=== PATIENT | male | born 1950 | race African-American/Black ===

== ENCOUNTER 2024-04-04 09:22 | Inpatient (IN) | payer MEDICARE, MEDICAID ==
[~2024-04-04] VITALS: Ht 162.6 cm; Wt 66.8 kg
--- NOTE | 2024-04-04 10:38 | ED.PDOC ---
GI ASSESSMENT HPI Comments 73 Y M with PMHX of HLD, GERD, and PE presents to the ED with CC of abdominal pain. Patient states, that he has been experiencing abdominal pain x1 week, with associated symptoms of nausea, vomiting, and chills. Patient relays, that he has been unable to eat due to persistent vomiting. Patient comments, that pain 1 week ago was a 10/10 as of today pain is a 9/10. Patient smokes tobacco, smokes marijuana occasionally, and denies illicit drug use. Patient is experiencing slight SOB with exertion and denies any chest pain, diarreha, fever, or dysuria. Chief Complaint: Abdominal Pain Time Seen by MD: 10:10 Primary Care Provider: ? Reviewed Notes: Nurses Notes, Medications, Allergies Allergies: Coded Allergies: NO KNOWN ALLERGIES (Unverified , 04/04/24) Information Source: Patient Mode of Arrival: Ambulatory Duration: Since onset Prehospital treatment: None Quality: Cramping Vomitus: Watery Stool: Normal Severity: Mild Recent: None Recent Hx of: None Pain Location: RLQ Modifying Factors: Nothing Associated sign and symptoms: Nausea, Vomiting Past Medical History PAST MEDICAL HISTORY: GERD, High Lipids, PE Surgical History: Denies all surgeries Family History Family History: Unknown Social History Smoker: Cigarettes Alcohol: Denies ETOH Use Drugs: Marijuana Lives In: Home Constitutional: reports: chills; denies: diaphoresis, fatigue, fever, malaise, sweats, weakness, others EENTM: denies: blurred vision, double vision, ear bleeding, ear discharge, ear drainage, ear pain, ear ringing, eye pain, eye redness, hearing loss, mouth pain, mouth swelling, nasal discharge, nose bleeding, nose congestion, nose pain, photophobia, tearing, throat pain, throat swelling, voice changes, others Respiratory: reports: SOB with excertion; denies: cough, hemoptysis, orthopnea, SOB at rest, shortness of breath, stridor, wheezing, others Cardiovascular: denies: chest pain, dizzy spells, diaphoresis, Dyspnea on exertion, edema, irregular heart beat, left arm pain, lightheadedness, palpitations, PND, syncope, others Gastrointestinal: reports: nausea, vomiting; denies: abdomen distended, abdominal pain, blood streaked bowels, constipated, diarrhea, dysphagia, difficulty swallowing, hematemesis, melena, poor appetite, poor fluid intake, rectal bleeding, rectal pain, others Genitourinary: denies: burning, dysuria, flank pain, frequency, hematuria, incontinence, penile discharge, penile sore, pain, testicle pain, testicle swelling, urgency, others Neurological: denies: dizziness, fainting, headache, left sided numbness, left sided weakness, numbness, paresthesia, pre-existing deficit, right sided numbness, right sided weakness, seizure, speech problems, tingling, tremors, weakness, others Musculoskeletal: denies: back pain, gout, joint pain, joint swelling, muscle pain, muscle stiffness, neck pain, others Integumetry: denies: bruises, change in color, change in hair/nails, dryness, laceration, lesions, lumps, rash, wounds, others Allergic/Immunocompromised: denies: Difficulty Healing, Frequent Infections, Hi ves, Itching, others Hematologic/Lymphatic: denies: anemia, blood clots, easy bleeding, easy bruising, swollen glands, others Endocrine: denies: excessive hunger, excessive sweating, excessive thirst, excessive urination, flushing, intolerance to cold, intolerance to heat, unexplained weight gain, unexplained weight loss, others Psychiatric: denies: anxiety, bipolar disorder, depression, hopeless, panic disorder, schizophrenia, sleepless, suicidal, others All Other Systems: Reviewed and Negative Physical Exam General Appearance: Moderate Distress HEENT: Normal ENT Inspection, Pharynx Normal, TMs Normal Neck: Full Range of Motion, Non-Tender, Normal, Normal Inspection Respiratory: Chest Non-Tender, Lungs Clear, No Accessory Muscle Use, No Respiratory Distress, Normal Breath Sounds Cardiovascular: No Edema, No JVD, No Murmur, No Gallop, Normal Peripheral Pulses, Regular Rate/Rhythm Breast Exam: Deferred Gastrointestinal: No Organomegaly, No Pulsatile Mass, Normal Bowel Sounds, RLQ, RUQ, Soft Genitalia: Deferred Pelvic: Deferred Rectal: Deferred Extremities: No calf tenderness, Normal capillary refill, Normal inspection, Normal range of motion, Non-tender, No pedal edema Musculoskeletal : Apperance: Normal Neurologic: Alert, cake froster II-XII nml as Tested, No Motor Deficits, Normal Affect, Normal Mood, No Sensory Deficits Cerebellar Function: Normal Reflexes: Normal Skin: Dry, Normal Color, Warm Lymphatic: No Adenopathy Was a procedure done? Was a procedure done?: No GI differential Dx Differential Diagnosis: Cholangitis, Cholecystitis, Gastritis/PUD, Gastroenteritis, Electrolyte Imbalance, Food Poisoning, Bacterial, Viral X-Ray, Labs, Meds, VS Vital Signs Date Time Temp Pulse Resp B/P (MAP) Pulse Ox O2 Delivery O2 Flow Rate FiO2 04/04/24 14:00 95 16 108/72 (84) 100 04/04/24 13:27 93 15 100 Room Air* 0 21 04/04/24 13:00 94 16 116/82 (93) 100 04/04/24 12:02 97.5 80 16 159/85 (109) 97 97.5 04/04/24 12:00 Room Air* 0 21 04/04/24 09:41 123 04/04/24 09:33 98.1 109 18 125/52 (76) 96 Lab Test 04/04/24 10:15 Range/Units White Blood Count 25.9 H 4.4-10.8 10^3/uL Red Blood Count 3.79 L 4.5-5.90 10^6/uL Hemoglobin 10.8 L 13.5-17.5 g/dL Hematocrit 32.7 L 41.0-53.0 % Mean Corpuscular Volume 86.3 80.0-100.0 fL Mean Corpuscular Hemoglobin 28.5 28.0-32.0 pg Mean Corpuscular Hemoglobin Concent 33.1 32.0-36.0 g/dL Red Cell Distribution Width 15.5 H 11.8-14.3 % Platelet Count 157 140-450 10^3/uL Mean Platelet Volume 11.5 H 6.9-10.8 fL Neutrophils (%) (Auto) 37.0-80.0 % Lymphocytes (%) (Auto) 10.0-50.0 % Monocytes (%) (Auto) 0.0-12.0 % Basophils (%) (Auto) 0.0-2.0 % Neutrophils # (Auto) 1.6-8.6 10 ^3/uL Lymphocytes # (Auto) 0.4-5.4 10 ^3/uL Monocytes # (Auto) 0-1.3 10 ^3/uL Differential Total Cells Counted 100.0 100 Neutrophils % (Manual) 91 H 37.0-80.0 Band Neutrophils % (Manual) 1 Lymphocytes % (Manual) 4 L 10.0-50.0 Monocytes % (Manual) 4 0-12 Eosinophils % (Manual) 0 0-7 Basophils % (Manual) 0 0.0-2.0 Metamyelocytes % (manual) 0 Myelocytes % (Manual) 0 Promyelocytes % (Manual) 0 Blast Cells % (Manual) 0 Reactive Lymphocytes 0 Platelet Estimate Adequate Anisocytosis (manual) Slight Sodium Level 136 136-145 mmol/L Potassium Level 4.2 3.5-5.1 mmol/L Chloride Level 103 98-107 mmol/L Carbon Dioxide Level 23 20-31 mmol/L Anion Gap 10 5-15 Blood Urea Nitrogen 17 9-23 mg/dL Creatinine 1.06 0.700-1.30 mg/dL Glomerular Filtration Rate Calc 75 >90 mL/min BUN/Creatinine Ratio 16.0 10.0-20.0 Serum Glucose 134 H 74-106 mg/dL Calcium Level 10.0 8.7-10.4 mg/dL Total Bilirubin 1.1 H 0.2-1.0 mg/dL Aspartate Amino Transferase (AST) 55 H 13-40 U/L Alanine Aminotransferase (ALT) 50 H 7-40 U/L Alkaline Phosphatase 221 H 46-116 U/L Total Protein 8.2 5.7-8.2 g/dL Albumin 4.6 3.2-4.8 g/dL Lipase 32 12-53 U/L GALLBLADDER US: FINDINGS: The liver measures 15.8 cm. There is an approximately 4.6 x 3.7 cm heterogene ous complex appearing mass in the right hepatic lobe near the gallbladder fossa. There is no intrahepatic biliary ductal dilatation. There is echogenic debris / sludge in the gallbladder. The gallbladder wall appears thickened and edematous. There is no significant pericholecystic fluid. Cooler Supervisor reports a negative Silva's sign. The common duct is not adequately seen. The right kidney measures 10 cm length. No sonographic evidence of nephrolithiasis or hydronephrosis. Visualized portions of the pancreas appears within normal limits. IMPRESSION: 1. Nonspecific 4.6 x 3.7 cm heterogeneous complex appearing mass in the right hepatic lobe near the gallbladder fossa. Further evaluation with CT abdomen and pelvis with contrast is recommended. 2. There is echogenic debris / sludge in the gallbladder. The gallbladder wall appears thickened and edematous. There is no significant pericholecystic fluid. Clinical correlation is recommended. HS:Y ATED BY: ALOK MAYER MD DICTATED DATE/TIME: 04/04/24 1126 SIGNED BY: ALOK MAYER MD SIGNED DATE/TIME: 04/04/24 1126 CC: The liver enzymes are elevated. The bilirubin is 1.1 The CBC shows an elevated white blood cell count of 25.9 We did review the findings on the ultrasound and there is a concern that the patient has a acute cholecystitis We also recommend a CT scan of the abdomen and pelvis At this time, the patient was being admitted. Images Reviewed?: Images reviewed and evaluated by me Time of 1ST Reevaluation: 10:40 Reevaluation 1ST: Unchanged Patient Education/Counseling: Diagnosis, Treatment, Prognosis Family Education/Counseling: No Family Present Departure 1 Departure Time of Disposition: 14:54 Impression: Primary Impression: Intractable abdominal pain Additional Impressions: Gallbladder sludge Leukocytosis Qualified Codes: D72.829 - Elevated white blood cell count, unspecified Disposition: ADMITTED INPATIENT Admit to: Med Surg Condition: Fair Critical Care Note Critical Care Time?: No Stability Stability form required: Yes Unstable for transfer: ED Physician Assesment (Clinical assesment) Heart Score Heart Score: Heart Score Response (Comments) Value History N/A 0 EKG N/A 0 Age N/A 0 Risk Factors N/A 0 Troponin N/A 0 Total 0 I personally scribed for RIMMA COOMBS MD ([email or web address]) on 04/04/24 at 10:38. Electronically submitted by Anastasia Mayorga ([email or web address]). I personally scribed for RIMMA COOMBS MD ([email or web address]) on 04/04/24 at 11:57. Electronically submitted by Anastasia Mayorga ([email or web address]). RIMMA COOMBS MD Apr 04, 2024 10:38
[2024-04-04 10:43] LABS: Hematocrit 32.7 % (41.0-53.0); Hemoglobin 10.8 g/dL (13.5-17.5); Mean Corpuscular Hemoglobin 28.5 pg (28.0-32.0); Mean Corpuscular Hgb Conc. 33.1 g/dL (32.0-36.0); Mean Corpuscular Volume 86.3 fL (80.0-100.0); Platelet Count (auto) 157 10^3/uL (140-450); Red Blood Cells 3.79 10^6/uL (4.5-5.90); Red Cell Distribution Width 15.5 % (11.8-14.3); White Blood Cell 25.9 10^3/uL (4.4-10.8)
[2024-04-04 10:44] LABS: Basophils % (manual) 0 (0.0-2.0); Blast Cells 0; Eosinophils % (manual) 0 (0-7); Metamyelocytes % 0; Myelocytes % 0; Promyelocytes % 0; Reactive Lymphocytes 0
[2024-04-04 11:04] LABS: Albumin 4.6 g/dL (3.2-4.8); Anion Gap 10 (5-15); Bilirubin, Total 1.1 mg/dL (0.2-1.0); Blood Urea Nitrogen 17 mg/dL (9-23); Carbon Dioxide 23 mmol/L (20-31); Chloride 103 mmol/L (98-107); Lipase 32 U/L (12-53); Potassium 4.2 mmol/L (3.5-5.1); Total Protein 8.2 g/dL (5.7-8.2)
[2024-04-04 11:25] LABS: Anisocytosis Slight; Band Neutrophils % (manual) 1; Lymphocytes % (manual) 4 (10.0-50.0); Monocytes % (manual) 4 (0-12); Platelet Estimate Adequate
[2024-04-04 11:29] LABS: Alanine Aminotransferase 50 U/L (7-40); Alkaline Phosphatase 221 U/L (46-116); Aspartate Aminotransferase 55 U/L (13-40); Glucose 134 mg/dL (74-106); Sodium 136 mmol/L (136-145)
--- NOTE | 2024-04-04 11:29 | DVH ---
ULTRASOUND ABDOMEN LIMITED INDICATION: pain TECHNIQUE: Multiple real-time sonographic images of the abdomen were obtained. COMPARISON: None FINDINGS: The liver measures 15.8 cm. There is an approximately 4.6 x 3.7 cm heterogeneous complex appearing mass in the right hepatic lobe near the gallbladder fossa. There is no intrahepatic biliary ductal di latation. There is echogenic debris / sludge in the gallbladder. The gallbladder wall appears thickened and ed ematous. There is no significant pericholecystic fluid. Desulfurizer Hand reports a negative Silva's sign. The common duct is not adequately seen. The right kidney measures 10 cm length. No sonographic evidence of nephrolithiasis or hydronephrosi s. Visualized portions of the pancreas appears within normal limits. IMPRESSION: 1. Nonspecific 4.6 x 3.7 cm heterogeneous complex appearing mass in the right hepatic lobe near the g allbladder fossa. Further evaluation with CT abdomen and pelvis with contrast is recommended. 2. There is echogenic debris / sludge in the gallbladder. The gallbladder wall appears thickened and edematous. There is no significant pericholecystic fluid. Clinical correlation is recommended. HS:Y
[2024-04-04 13:27] VITALS: PULSE 93; RESP 15; O2SAT 100
--- NOTE | 2024-04-04 15:09 | DVHHP2 ---
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 He currently does not have any paperwork to speak about that but when asking questions he is not sure what he was diagnosed with but he states that for this last week he has not been able to keep anything down and he has had decreased oral intake and he has been vomiting all week he states he has been vomiting so much that he decided come to the ER for evaluation. He does admit to a 20 lb weight loss in the last month. Patient states he does have right-sided abdominal pain he also had some chills with no fever. He denies any diarrhea no chest pain no shortness with the breath. Did ask patient if he had any family history of cancer he says his brother had of he believes stomach cancer. He also states he did smoke in the past he was smoking greater than 50 years but he stopped the few days ago. When evaluating patient's labs and imaging from ED white count was found to be 25.9 hemoglobin was 10.8 32.7 glucose was 134 total bili is 1.1 AST was 55 ALT is 50 alkaline phosphatase 221. Patient had an ultrasound of his gallbladder completed shows gallbladder wall thickening which is consistent with the infection and also there was a complex mass in his right hepatic lobe of the liver. When speaking with the patient he states he was never diagnosed with any kind of liver mass. He has not been diagnosed with any kind of cancer. With these findings we will admit and ask for GI consult along with General surgery. He will likely need a biopsy if the CT scan picks up a liver mass which was recommended by the ultrasound. For now we will start on antibiotics and do cancer work. And pain management. Since patient might potentially need a biopsy we will hold Eliquis for now and place on heparin therapy Past Medical History Hyperlipidemia GERDs PE/dvt questionable in the the liver, aortic stent aneurysm Past Surgical History 6 mo aortic stent aneurysm unknown time Family History Reviewed, non-contributory to the management of this case. Past Social History Patient has stopped smoking one week ago he smoked for 50 years half a pack daily he also smokes marijuana no drug use or alcohol use Review of Systems Constitutional: No: Fever, Chills, Sweats, Weakness, Malaise, Other Eyes: No: Pain, Vision change, Conjunctivae inflammation, Eyelid inflammation, Other, Redness ENT: No: Ear pain, Ear discharge, Nose pain, Nose discharge, Nose congestion, Mouth pain, Mouth swelling, Throat pain, Throat swelling, Other Respiratory: No: Cough, Dry, Shortness of breath, SOB with excertion, Wheezing, Hemoptysis, Pleuritic Pain, Sputum, Wheezing, Other Cardiovascular: No: Chest Pain, Palpitations, Orthopnea, Paroxysmal Noc. Dyspnea, Edema, Lt Headedness, Other Gastrointestinal: Nausea, Vomiting, Abdominal Pain; No: Diarrhea, Constipation, Melena, Hematochezia, Other Genitourinary: No Dysuria, No Frequency, No Incontinence, No Hematuria, No Retention, No Other Musculoskeletal: No: other, neck pain, shoulder pain, arm pain, back pain, hand pain, leg pain, foot pain Skin: No: Rash, Lesions, Jaundice, Bruising, Other Neurological: No: Weakness, Numbness, Incoordination, Change in speech, Confusion, Seizures, Other Allergies: Coded Allergies: NO KNOWN ALLERGIES (Unverified , 04/04/24) Exam Vital Signs Vital Signs Date Time Temp Pulse Resp B/P (MAP) Pulse Ox O2 Delivery O2 Flow Rate FiO2 04/04/24 14:00 95 16 108/72 (84) 100 04/04/24 13:27 Room Air* 0 21 04/04/24 12:02 97.5 97.5 General Appearance: Alert, Oriented X3, Cooperative, No acute distress HEENT: Atraumatic, PERRLA, EOMI, Mucous membr. moist/pink Respiratory: Clear to auscultation, Normal air movement Cardiovascular: Regular rate, Normal S1, Normal S2, No murmurs Abdominal: Normal bowel sounds, Soft, Other (+guarding and rebound tenderness ) Extremities: No clubbing, No cyanosis, No edema, Normal pulses, No tenderness/swelling Skin: No rashes, No breakdown, No significant lesion Neuro: Normal gait, Normal speech, Strength at 5/5 X4 ext, Normal tone, Sensation intact, Cranial nerves 3-12 NL Psych/Mental Status: Mental status NL, Mood NL Labs/Xrays CT scan abdomen pelvis complex mass in the right hepatic lobe near the gallbladder, gallbladder with wall inflammation I reviewed labs, imaging CT scan abdomen pelvis, EKG and all diagnostic studies on this patient from ED records and the medical chart Labs Test 04/04/24 10:15 Range/Units White Blood Count 25.9 H 4.4-10.8 10^3/uL Red Blood Count 3.79 L 4.5-5.90 10^6/uL Hemoglobin 10.8 L 13.5-17.5 g/dL Hematocrit 32.7 L 41.0-53.0 % Mean Corpuscular Volume 86.3 80.0-100.0 fL Mean Corpuscular Hemoglobin 28.5 28.0-32.0 pg Mean Corpuscular Hemoglobin Concent 33.1 32.0-36.0 g/dL Red Cell Distribution Width 15.5 H 11.8-14.3 % Platelet Count 157 140-450 10^3/uL Mean Platelet Volume 11.5 H 6.9-10.8 fL Neutrophils (%) (Auto) 37.0-80.0 % Lymphocytes (%) (Auto) 10.0-50.0 % Monocytes (%) (Auto) 0.0-12.0 % Basophils (%) (Auto) 0.0-2.0 % Neutrophils # (Auto) 1.6-8.6 10 ^3/uL Lymphocytes # (Auto) 0.4-5.4 10 ^3/uL Monocytes # (Auto) 0-1.3 10 ^3/uL Differential Total Cells Counted 100.0 100 Neutrophils % (Manual) 91 H 37.0-80.0 Band Neutrophils % (Manual) 1 Lymphocytes % (Manual) 4 L 10.0-50.0 Monocytes % (Manual) 4 0-12 Eosinophils % (Manual) 0 0-7 Basophils % (Manual) 0 0.0-2.0 Metamyelocytes % (manual) 0 Myelocytes % (Manual) 0 Promyelocytes % (Manual) 0 Blast Cells % (Manual) 0 Reactive Lymphocytes 0 Platelet Estimate Adequate Anisocytosis (manual) Slight Sodium Level 136 136-145 mmol/L Potassium Level 4.2 3.5-5.1 mmol/L Chloride Level 103 98-107 mmol/L Carbon Dioxide Level 23 20-31 mmol/L Anion Gap 10 5-15 Blood Urea Nitrogen 17 9-23 mg/dL Creatinine 1.06 0.700-1.30 mg/dL Glomerular Filtration Rate Calc 75 >90 mL/min BUN/Creatinine Ratio 16.0 10.0-20.0 Serum Glucose 134 H 74-106 mg/dL Calcium Level 10.0 8.7-10.4 mg/dL Total Bilirubin 1.1 H 0.2-1.0 mg/dL Aspartate Amino Transferase (AST) 55 H 13-40 U/L Alanine Aminotransferase (ALT) 50 H 7-40 U/L Alkaline Phosphatase 221 H 46-116 U/L Total Protein 8.2 5.7-8.2 g/dL Albumin 4.6 3.2-4.8 g/dL Lipase 32 12-53 U/L Assessment/Plan Assessment/Plan acute cholecystitis found on us ordered general surgery consult fu recs ordered zosyn for now ordered morphine prn pain ordered npo for now ordered ivf for now acute 4.6 x 3.7 cm heterogeneous complex appearing mass in the right hepatic lobe near the gallbladder fossa found on us ordered ct scan abd pelvis with iv contrast fu results ordered gi consult fu recs will likely need biopsy of mass will need to consult IR to be done by rounding team (will place on heparin for now) hold eliquis ordered cea and AFP follow up results acute leukocytosis like from gallbladder infection ordered zosyn for now acute dyspnea without hypoxia pt with ? history of pe vs liver clot will order cta to rule out pe will hold eliquis for now will place on heparin therapy pending biopsy of liver mass (biopsy to be determined by rounding team) acute liver DVT vs Pe pt unsure of history was dx at [facility] ordered results from [facility] pt was admitted 03/15-/03/19/2024 will need to hold eliquis for now ordered heparin for now acute transaminitis likely for liver mass found on us ordered gi consult fu recs avoid liver toxic drugs acute anemia monitor for downtrend acute weight loss in 2wks 20 lbs can consider nutrition consult enc oral intake tobacco dependence enc continue abstinence offered nicotine patch pt declines chronic problems hld gerds PE fen/ppx protonix scd heparin ivf for now npo for now plan admit to medicine Plan discussed with: Patient, Other ( paul [phone]) Date of Service: Apr 04, 2024 Billing Provider: ZENAIDA DUFF DNP Common Visit Codes: 79405-[id number] INP/OBS CARE (HIGH) ZENAIDA DUFF DNP Apr 04, 2024 15:09
[2024-04-04 15:35] LABS: Urine Bacteria None Seen /hpf (None Seen)
[2024-04-04 15:59] LABS: Urine Blood 1+ /uL (Negative); Urine Clarity Clear (Clear); Urine Color Dark-Yellow (Yellow); Urine Mucus FEW (None Seen); Urine Protein, UAD 2+ (Negative); Urine Specific Gravity 1.035 (1.001-1.035); Urine Squamous Epithelial Cell FEW /hpf (<5); Urine Urobilinogen 12 mg/dL (Negative); Urine WBC 3 /hpf (0 - 3)
[2024-04-04] MEDS ORDERED: ALBUTEROL SULF 2.5 MG/0.5ML(0.5%) NEB SOLN NEB PRN (16:00)
[2024-04-04] MEDS ORDERED: NITROGLYCERIN 0.4 MG SL TAB SL PRN (16:00)
[2024-04-04] MEDS ORDERED: IPRATROPIUM BROM 0.5 MG/2.5ML INH SOL NEB PRN (16:00)
[2024-04-04] MEDS: IOHEXOL 350 MG/ML 100ML IJ ONE (16:22)
--- NOTE | 2024-04-04 16:46 | DVH ---
CHEST RADIOGRAPH Indication: eval for sob Technique: Single frontal view of the chest was obtained Comparison: None FINDINGS: Lines and Tubes: None Lungs: No focal consolidation. Pleura: No effusion. No pneumothorax. Cardiomediastinal contours: Unremarkable Bones: No acute osseous abnormality. IMPRESSION: 1. No acute cardiopulmonary disease.
[2024-04-04 16:47] LABS: Base Excess -0.3 mmol/L (-2.0-3.0)
[2024-04-04 17:17] LABS: Basophils # (auto) 0 10 ^3/uL (0-0.2); Basophils % (auto) 0.1 % (0.0-2.0); Eosinophils # (auto) 0 10 ^3/uL (0-0.8); Hematocrit 29.3 % (41.0-53.0); Hemoglobin 9.6 g/dL (13.5-17.5); Lymphocytes # (auto) 1.4 10 ^3/uL (0.4-5.4); Lymphocytes % (auto) 7.7 % (10.0-50.0); Mean Corpuscular Hemoglobin 28.5 pg (28.0-32.0); Mean Corpuscular Hgb Conc. 32.9 g/dL (32.0-36.0); Mean Corpuscular Volume 86.5 fL (80.0-100.0); Monocytes # (auto) 1.2 10 ^3/uL (0-1.3); Monocytes % (auto) 6.7 % (0.0-12.0); Neutrophils # (auto) 15.2 10 ^3/uL (1.6-8.6); Neutrophils % (auto) 85.5 % (37.0-80.0); Platelet Count (auto) 124 10^3/uL (140-450); Red Blood Cells 3.39 10^6/uL (4.5-5.90); Red Cell Distribution Width 15.7 % (11.8-14.3); White Blood Cell 17.8 10^3/uL (4.4-10.8)
[2024-04-04] MEDS: PIPERACILLIN-TAZOB 3.375GM 100 ML IV ONE (17:18)
--- NOTE | 2024-04-04 17:18 | DVH ---
INDICATION: eval for pe COMPARISON: None TECHNIQUE: Multidetector CTA of the chest was performed of the chest with 100 cc of intravenous contr ast. PULMONARY ANGIOGRAPHY PROTOCOL was utilized using a bolus-tracking technique centered on the john paul n pulmonary artery. Axial, coronal and sagittal multiplanar and MIP reformats were performed. Radiation Dose : 1. Chest: CTDI volume is 11.84 mGy. Dose-length product is 703.58 mGy*cm The dose indicators for CT are the volume Computed Tomography (CT) Dose Index (CTDIvol) and the Dose Length Product (DLP), and are measured in units of mGy and mGy-cm, respectively. These indicators are not patient dose, but values generated from the CT scanner acquisition factors. The report includes radiation exposure data for exposures received during this examination. Findings: Thyroid gland is unremarkable. No pulmonary embolism. No aortic aneurysm or dissection.. The pulmonary trunk is normal in size. Heart size is within normal limits. No significant mediastinal lymphadenopathy. No pneumothorax, pleural effusion or focal airspace consolidation. 5 mm right lower lobe solid nodule . 7 mm right upper lobe solid nodule abutting the fissure. Pneumothorax, pleural effusion or focal a irspace consolidation. Mild gastric wall thickening. 4.3 x 3.5 cm hepatic lesion which does not measure as simple fluid. Oth erwise, partial view of the upper abdomen is unremarkable. The soft tissues unremarkable. No destructive osseous lesions are noted. IMPRESSION: There is no pulmonary embolism. There is no aortic aneurysm or dissection. There is no evidence of acute intrathoracic abnormalities. 5 mm right lower lobe solid nodule with 7 mm right upper lobe solid nodule abutting the fissure. Wayne mmend follow-up per fleischner criteria. Wall thickening of the stomach. Correlate for gastritis. Incompletely imaged 4.3 x 3.5 cm hypodense hepatic lesion adjacent to the gallbladder fossa which adorno s not measure simple fluid. Hepatic protocol CT / MRI should be considered for further evaluation.
[2024-04-04] MEDS: HEPARIN SODIUM (PORCINE) 5000 UNITS/ML 1ML VIAL IV ONE (17:22)
[2024-04-04] MEDS: PANTOPRAZOLE 40 MG/10 ML VIAL INJ IV ONE (17:22)
[2024-04-04] MEDS: MORPHINE SULFATE INJ 2 MG/ml SYRG IV PRN (17:23)
[2024-04-04] MEDS: SODIUM CHLORIDE 0.9% 1,000 ML IV SCH (17:23)
[2024-04-04] MEDS: ONDANSETRON HCL 4 MG/2 ML VIAL IV PRN (17:23)
[2024-04-04 17:31] LABS: INR 1.24 (0.9-1.15); Prothrombin Time 12.9 sec (9.3-11.8)
--- NOTE | 2024-04-04 17:35 | DVH ---
Exam: CT CT CHEST/AB/PL W CON- IV ONLY History: eval for acute liver mass Comparison Study: None available at time of dictation. Contrast: Type of contrast: Omnipaque 350 Contrast injected: 100 mL Contrast wasted: 0 TECHNIQUE: A digital lambskin trimmer image was obtained. During the uneventful, intravenous administration of c ontrast material, multislice data acquisition was obtained through the abdomen and pelvis. The data s et was subsequently reconstructed into axial images. Images were reviewed on a work station using a c ombination of axial and multiplanar using a variety of window levels and settings. Radiation Dose Information: CT Dose: CTDI volume is 25.6 mGy. Dose-length product is 703.58 mGy*cm FINDINGS: Lung Bases: Nodules in the right lung field 1 measuring 6.6 cm in the right middle lobe (series 6 carlitos ge 26). 2nd nodule right lower lobe measuring 6.7 mm (series 6; image 30 ) Liver: There is a multi-septated hypodense mass adjacent the gallbladder measuring 5 x 4.6 by 3.7 cm. Tissue density 24 Hounsfield units. May represent an abscess. Liver appears heterogeneous with findi ngs of steatosis. Gallbladder and Biliary Tree: No calcified gallstones in the gallbladder. Spleen: Unremarkable Pancreas: The pancreas is normal in appearance without focal lesions or abnormal enhancement. Adrenal Glands: Unremarkable Kidneys: Kidneys demonstrate normal symmetric enhancement without focal lesions, calculi or hydroneph rosis. Bladder: Unremarkable Bowel: The stomach is grossly normal in appearance. Small bowel and colon are normal in caliber and d istribution. The appendix is not visualized; however, no secondary findings of acute appendicitis id entified. Ascites: Absent Lymphadenopathy: No mesenteric, retroperitoneal or periportal lymphadenopathy. Abdominal Wall and Mesentery: Unremarkable. Vasculature: Aorta bi-iliac stent in place. Beginning just below the level of the renal arteries and extending into the right and left iliac arteries. Distal abdominal aorta measures 6.2 cm and there a re no findings to suggest endoleak. Pelvic Organs: Unremarkable Musculoskeletal: No aggressive focal bony lesions, acute fractures or dislocation. Soft tissues: Unremarkable. IMPRESSION: 1. Multi-septated mass adjacent to the gallbladder measuring 5 by 4.6 x 3.7 cm. Tissue density 24 Ho unsfield units. Most likely an abscess. Can not entirely exclude neoplasm although unlikely since it is solitary and septated. 2. No cholelithiasis. 3. 2 small 6 mm noncalcified pulmonary nodules on the right recommend follow-up according to Fleischn er criteria. 4. Aorta bi iliac stent in the abdominal aorta beginning just below the renal arteries and extending into the proximal iliac vessels bilaterally. 5. All CT scans at this medical facility are performed using dose modulation techniques as appropriate t o a performed exam including the following: Automated exposure control was utilized; adjustment of th e MA and/or KV according to patient size; and use of iterative reconstruction technique.
[2024-04-04 17:55] LABS: COVID19 ANTIGEN SOFIA FIA POSITIVE (NEGATIVE)
[2024-04-04] MEDS: HEPARIN DRIP/D5W 100UNITS/ML 250 ML IV SCH (18:04)
--- NOTE | 2024-04-04 19:11 | ECG ---
[facility] Test Date: 2024-04-04 Test Time: 09:41:07 Pat Name: GRECIA LOPEZ Department: ER Room: 0203T Gender: M Chicken Handler: JODEE : 1950 Requested By: ANN-MARIE MIXON Order Number: [id number] Reading MD: Garth Donohue Measurements Intervals [place] Rate: 123 P: 92 [place]: 122 QRS: 101 QRSD: 91 T: 6 QT: 346 QTc: 495 Interpretive Statements Sinus tachycardia Ventricular premature complex Aberrant conduction of SV complex(es) Right axis deviation Borderline prolonged QT interval Electronically Signed On 04-05-2024 13:11:24 PST by Garth Donohue Please click the below link to view image of tracing.
[2024-04-04 20:00] VITALS: PULSE 84
[2024-04-04 21:36] VITALS: PULSE 91; RESP 17; O2SAT 100
[2024-04-04 22:45] VITALS: O2SAT 100
[2024-04-04 23:45] VITALS: BP 141/85; PULSE 51; RESP 20; O2SAT 91
[2024-04-05] VITALS (11 sets, daily range): BP systolic 95–117; BP diastolic 58–71; PULSE 79–110; RESP 16–20; TEMP 97.8–98.7; O2SAT 91–100
[2024-04-05] MEDS ORDERED: APIX5TAB PO (00:17)
[2024-04-05] MEDS ORDERED: ASPI-325 PO (00:17)
[2024-04-05] MEDS ORDERED: FAMO40TA7 PO (00:17)
[2024-04-05] MEDS ORDERED: ATOR40TA52 PO (00:17)
[2024-04-05 00:35] LABS: INR 1.18 (0.9-1.15); Prothrombin Time 12.4 sec (9.3-11.8)
[2024-04-05] MEDS: PIPERACILLIN-TAZOB 3.375GM 100 ML IV SCH (00:37)
[2024-04-05 00:40] LABS: Partial Thromboplastin Time 96.8 SEC (24.5-34.5)
[2024-04-05] MEDS: HEPARIN DRIP/D5W 100UNITS/ML 250 ML IV SCH (02:08)
[2024-04-05 08:14] LABS: Basophils # (auto) 0 10 ^3/uL (0-0.2); Basophils % (auto) 0.3 % (0.0-2.0); Eosinophils # (auto) 0 10 ^3/uL (0-0.8); Hematocrit 27.4 % (41.0-53.0); Hemoglobin 9.1 g/dL (13.5-17.5); Lymphocytes # (auto) 1.3 10 ^3/uL (0.4-5.4); Lymphocytes % (auto) 10.9 % (10.0-50.0); Mean Corpuscular Hemoglobin 28.6 pg (28.0-32.0); Mean Corpuscular Hgb Conc. 33.3 g/dL (32.0-36.0); Mean Corpuscular Volume 85.9 fL (80.0-100.0); Monocytes # (auto) 1.2 10 ^3/uL (0-1.3); Neutrophils # (auto) 9.7 10 ^3/uL (1.6-8.6); Neutrophils % (auto) 78.8 % (37.0-80.0); Platelet Count (auto) 107 10^3/uL (140-450); Red Cell Distribution Width 15.8 % (11.8-14.3); White Blood Cell 12.3 10^3/uL (4.4-10.8)
[2024-04-05 08:15] LABS: INR 1.19 (0.9-1.15); Partial Thromboplastin Time 57.5 SEC (24.5-34.5); Prothrombin Time 12.5 sec (9.3-11.8)
[2024-04-05 08:33] LABS: Alanine Aminotransferase 49 U/L (7-40); Albumin 3.8 g/dL (3.2-4.8); Alkaline Phosphatase 156 U/L (46-116); Anion Gap 7 (5-15); Aspartate Aminotransferase 63 U/L (13-40); BUN/Creatinine Ratio 12.2 (10.0-20.0); Bilirubin, Total 0.9 mg/dL (0.2-1.0); Blood Urea Nitrogen 12 mg/dL (9-23); Calcium 9.3 mg/dL (8.7-10.4); Carbon Dioxide 24 mmol/L (20-31); Chloride 105 mmol/L (98-107); Glucose 108 mg/dL (74-106); Potassium 3.5 mmol/L (3.5-5.1); Sodium 136 mmol/L (136-145)
[2024-04-05] MEDS: PANTOPRAZOLE 40 MG/10 ML VIAL INJ IV SCH (09:54)
[2024-04-05 14:11] LABS: INR 1.12 (0.9-1.15); Partial Thromboplastin Time 53.8 SEC (24.5-34.5); Prothrombin Time 11.8 sec (9.3-11.8)
--- NOTE | 2024-04-05 15:12 | DVHPNRES ---
Progress Note Date Seen: Apr 05, 2024 Resident Creating Document: EDUARDO BROWN RESIDENT Medical Necessity Reason Pt with a Central, PICC or Fol: No Subjective Review of Systems pt seen and examined at bedside mentioning of no active complaints Objective vital signs Vital Sign Date Time Temp Pulse Resp B/P (MAP) Pulse Ox O2 Delivery O2 Flow Rate FiO2 04/05/24 12:13 98.2 79 20 102/58 (73) 97 98.2 04/05/24 09:30 Nasal Cannula 2.0 04/05/24 09:30 28 Total Intake and Output 04/04/24 04/04/24 04/05/24 15:00 23:00 07:00 Intake Total 220 ml 636 ml Balance 220 ml 636 ml medications Current Medications Medications Dose Ordered Sig/Naomi Route Start Time Stop Time Status Last Admin Dose Admin Albuterol 2.5 mg Q4HPRN PRN NEB 04/04/24 16:00 Ipratropium [place] 0.5 mg Q4HPRN PRN NEB 04/04/24 16:00 Pantoprazole Sodium 40 mg DAILY IV 04/05/24 10:00 04/05/24 09:54 40 MG Sodium Chloride 1,000 ml @ 120 mls/hr Q8H20M IV 04/04/24 16:00 04/05/24 09:54 120 MLS/HR Docusate Sodium 100 mg BIDPRN PRN PO 04/04/24 16:00 Piperacillin Sod/ Tazobactam Sod 100 ml @ 25 mls/hr Q8HR IV 04/04/24 22:00 04/05/24 14:30 25 MLS/HR Heparin Sodium/ Dextrose 250 ml @ 9 mls/hr Q24H IV 04/05/24 02:00 04/05/24 02:08 9 MLS/HR Examination Physical exam Gen: alert and oriented X4, no distress Resp: bilateral a/e + CVS: normal s1/s2, no murmurs GI: soft Neuro : normal speech and tone laboratory and microbiology Laboratory Tests 04/05/24 07:20 Test 04/05/24 07:20 Range/Units Serum Glucose 108 H 74-106 mg/dL Microbiology Date/Time Source Procedure Growth Status 04/05/24 00:00 Nose MRSA Screen - Final Complete Labs and/or images reviewed: Labs reviewed by me, Image(s) reviewed by me Problem List/Assessment/Plan Problem List/Assessment/Plan Assessment/plan #Sepsis due to liver abscess -IV fluids -IV antibiotics -blood culture #Acute hypoxic resp failure due to covid pneumonia -resolving , on room air #COVID pneumonia -on 02 #GERD -IV Protonix #?portal vein thrombosis -was on eliquis - IV heparin #Normocytic anemia -CBC monitor #Multi-septated mass adjacent to the gallbladder measuring 5 by 4.6 x 3.7 cm likely liver abscess -IV antibiotics -surgery consult and GI consult #Thrombocytopenia likely due to sepsis -CBC monitor #2 small 6 mm noncalcified pulmonary nodules on the right -follow up with repeat CT #Aorta bi iliac stent in the abdominal aorta beginning just below the renal arteries and extending into the proximal iliac vessels bilaterally -seen on CT #Acute Resp alkalosis with partial comp met acidosis -likely due to early sepsis #DVT prophylaxis -on heparin drip Code status, full code Case discussion with Dr Bose Plan discussed with: Patient, Other My Orders My Orders Orders - EDUARDO BROWN Procedure Category Date Status Time Npo Except Ice Chips ORDERS 04/05/24 Transmitted 14:48 Date of Service: Apr 05, 2024 Billing Provider: PARAMJIT BOSE MD Common Visit Codes: [id number] INP/OBS CARE(HIGH) EDUARDO BROWN Apr 05, 2024 15:12 PARAMJIT BOSE MD Apr 09, 2024 16:25
[2024-04-05] MEDS ORDERED: DEXTROSE (50%) 50ML SYRG IV PRN (17:15)
--- NOTE | 2024-04-05 17:36 | DVHINCON2 ---
Date of service: Apr 05, [address] DUFF Reason for Consultation LIVER MASS POSSIBLE ABSCESS History of Present Illness This 73-year-old male presented to the emergency room with complaints of abdominal pain which was very severe in the epigastrium and right upper quadr ant. Patient was apparently in [facility] in March 15, 2024 before Malcolm apparently abdominal pain and has found to have some possible blood clot in the liver at [facility] and the patient is a poor historian has difficult to get much detailed history from at this time. Patient has been on put on Eliquis for possible blood clot in the liver is still waiting for some we will need to get some report from [facility] for this. Patient has got history of aneurysm surgery for aortic aneurysm with stent placement about six months ago. The present symptoms started about a week ago with complaints of severe abdomina l pain with nausea vomiting and decreased oral intake. Patient has lost about 20 lb weight loss in the last one month. Patient is also suspected to be having possible COVID Patient had a ultrasound done which showed a gallbladder from liver mass close to the gallbladder a CT scan also showed a liver mass. Possibility patient has got high fever possibility of an abscess or other pathology also can not be excluded the reason for GI consult is for possible liver pass possible abscess liver abscess. Past Medical History Hyperlipidemia GERD possible PE in the live with possible DVT in the liver distended aneurysm unable to get more detailed history from the patient and and awaiting for reports from [facility]. Past Surgical History Surgery for aortic aneurysm Family History: FH: cancer G8 BROTHER FH: renal failure G8 MOTHER Family History Unremarkable Social History Smokes marijuana denied any drug GERD alcohol abuse Allergies: Coded Allergies: NO KNOWN ALLERGIES (Unverified , 04/04/24) Home Meds Reported Medications Famotidine (Famotidine) 40 Mg Tab, 1 TAB PO DAILY 04/05/24 Aspirin (Aspirin Low Dose) 81 Mg Tab, 1 TAB PO DAILY 04/05/24 Atorvastatin Calcium (ATORVASTATIN CALCIUM) 40 Mg Tab, 1 TAB PO DAILY 04/05/24 Apixaban Base (ELIQUIS) 5 Mg Tab, 1 TAB PO BID 04/05/24 Current Medications Current Medications Medications (Trade) Dose Ordered Sig/Naomi Route PRN Reason Start Time Stop Time Status Last Admin Pantoprazole Sodium (Protonix) 40 mg DAILY IV 04/05/24 10:00 04/05/24 09:54 Piperacillin Sod/ Tazobactam Sod 100 ml @ 25 mls/hr Q8HR IV 04/04/24 22:00 04/05/24 14:30 Heparin Sodium/ Dextrose 250 ml @ 9 mls/hr Q24H IV 04/05/24 02:00 04/05/24 02:08 Sodium Chloride 1,000 ml @ 75 mls/hr [id number] IV 04/05/24 15:15 Review of Systems Noncontributory Vital Signs Vital Signs Date Time Temp Pulse Resp B/P (MAP) Pulse Ox O2 Delivery O2 Flow Rate FiO2 04/05/24 12:13 98.2 79 20 102/58 (73) 97 98.2 04/05/24 09:30 Nasal Cannula 2.0 04/05/24 09:30 28 Physical Exam Originally built and nourished male in no acute distress but has fever vital signs stable except for the fever HEENT examination no pallor no icterus Neck is supple no lymphadenopathy Lungs scattered rales Cardiovascular unremarkable Abdomen soft there is no definite masses felt tenderness in the epigastrium right upper quadrant mild rebound and guarding no rigidity Bowel sounds normal Extremities no edema Grossly intact neurological Labs/Diagnostic Data Labs Test 04/05/24 13:30 04/05/24 07:20 04/04/24 16:50 04/04/24 16:40 Range/Units Prothrombin Time 11.8 9.3-11.8 sec Prothrombin Time INR 1.12 0.9-1.15 Activated Partial Thromboplast Time 53.8 H 24.5-34.5 SEC White Blood Count 12.3 #H 4.4-10.8 10^3/uL Red Blood Count 3.20 L 4.5-5.90 10^6/uL Hemoglobin 9.1 L 13.5-17.5 g/dL Hematocrit 27.4 L 41.0-53.0 % Mean Corpuscular Volume 85.9 80.0-100.0 fL Mean Corpuscular Hemoglobin 28.6 28.0-32.0 pg Mean Corpuscular Hemoglobin Concent 33.3 32.0-36.0 g/dL Red Cell Distribution Width 15.8 H 11.8-14.3 % Platelet Count 107 L 140-450 10^3/uL Mean Platelet Volume 11.3 H 6.9-10.8 fL Neutrophils (%) (Auto) 78.8 37.0-80.0 % Lymphocytes (%) (Auto) 10.9 10.0-50.0 % Monocytes (%) (Auto) 10.0 0.0-12.0 % Eosinophils (%) (Auto) 0.0 0.0-7.0 % Basophils (%) (Auto) 0.3 0.0-2.0 % Neutrophils # (Auto) 9.7 H 1.6-8.6 10 ^3/uL Lymphocytes # (Auto) 1.3 0.4-5.4 10 ^3/uL Monocytes # (Auto) 1.2 0-1.3 10 ^3/uL Eosinophils # (Auto) 0 0-0.8 10 ^3/uL Basophils # (Auto) 0 0-0.2 10 ^3/uL Nucleated Red Blood Cells 0.0 % Sodium Level 136 136-145 mmol/L Potassium Level 3.5 3.5-5.1 mmol/L Chloride Level 105 98-107 mmol/L Carbon Dioxide Level 24 20-31 mmol/L Anion Gap 7 5-15 Blood Urea Nitrogen 12 9-23 mg/dL Creatinine 0.98 0.700-1.30 mg/dL Glomerular Filtration Rate Calc 82 >90 mL/min BUN/Creatinine Ratio 12.2 10.0-20.0 Serum Glucose 108 H 74-106 mg/dL Calcium Level 9.3 8.7-10.4 mg/dL Total Bilirubin 0.9 0.2-1.0 mg/dL Aspartate Amino Transferase (AST) 63 H 13-40 U/L Alanine Aminotransferase (ALT) 49 H 7-40 U/L Alkaline Phosphatase 156 H 46-116 U/L Total Protein 7.0 5.7-8.2 g/dL Albumin 3.8 3.2-4.8 g/dL Carcinoembryonic Antigen 1.58 <=5.0 ng/mL Blood Gas Specimen Type Arterial Blood Gas Sample Site Left radial Blood Gas Patient Temperature 37.0 Arterial Blood Date Drawn [id number] Arterial Blood pH 7.487 H 7.350-7.450 Arterial Blood Partial Pressure CO2 30.5 L 35.0-48.0 mmHg Arterial Blood Partial Pressure O2 73.7 L 83.0-108.0 mmHg Arterial Blood HCO3 22.6 21.0-28.0 mmol/L Arterial Blood Oxygen Saturation 94.7 94.0-98.0 % Arterial Blood Base Excess -0.3 -2.0-3.0 mmol/L Arterial Blood Oxyhemoglobin 93.9 L 94.0-98.0 % Arterial Blood Carboxyhemoglobin 0.2 L 0.5-1.5 % Arterial Blood Methemoglobin 0.6 0.0-1.5 % Odc Test Yes Blood Gas Total Hemoglobin 10.10 L 13.5-17.5 g/dL Blood Gas Modality Room air FiO2 % 21.0 Test 04/04/24 16:37 04/04/24 15:20 04/04/24 10:15 Range/Units SARS-CoV-2 Antigen (Rapid) Positive *A NEGATIVE Urine Color Dark-yellow Yellow Urine Clarity Clear Clear Urine pH 6.0 5.0-9.0 Urine Specific [place] 1.035 1.001-1.035 Urine Protein 2+ H Negative Urine Ketones Trace Negative Urine Blood 1+ H Negative /uL Urine Nitrite Negative Negative Urine Bilirubin 1+ Negative Urine Urobilinogen 12 H Negative mg/dL Urine Leukocyte Esterase Negative Negative /uL Urine RBC 6 0 - 3 /hpf Urine WBC 3 0 - 3 /hpf Urine Squamous Epithelial Cells Few <5 /hpf Urine Bacteria None seen None Seen /hpf Urine Mucus Few None Seen Urine Glucose Normal Normal mg/dL Differential Total Cells Counted 100.0 100 Neutrophils % (Manual) 91 H 37.0-80.0 Band Neutrophils % (Manual) 1 Lymphocytes % (Manual) 4 L 10.0-50.0 Monocytes % (Manual) 4 0-12 Eosinophils % (Manual) 0 0-7 Basophils % (Manual) 0 0.0-2.0 Metamyelocytes % (manual) 0 Myelocytes % (Manual) 0 Promyelocytes % (Manual) 0 Blast Cells % (Manual) 0 Reactive Lymphocytes 0 Platelet Estimate Adequate Anisocytosis (manual) Slight Lipase 32 12-53 U/L Microbiology Date/Time Source Procedure Growth Status 04/05/24 00:00 Nose MRSA Screen - Final Complete 04/04/24 16:57 Blood Blood Culture - Preliminary NO GROWTH AFTER 24 HOURS OF INCUBATION. Resulted Assessment 73-year-old male with complaints of severe abdominal pain history of hyperlipidemia history of GERD found to have possible liver blood clot or so at [facility] not unable to get much detailed history came with severe abdominal pain ultrasound and CT scan showing a liver mass patient also has got got COVID. His alk phos is 221 ALT is 50 AST is 55. Clinical impression Possible liver abscess were patient has got COVID whether discovered related or other pathology in the biliary tract disease can not be excluded With weight loss in the liver mass malignancy also can not be excluded Plan/Recommendation We will recommend IV antibiotics Have infectious disease consult We will recommend an MRI MRCP of the liver Follow liver enzymes closely May need further workup including surgical drainage or radiological drainage if an abscess May need to be sent to a tertiary liver center also if necessary depending upon the clinical response Thank you Dr. Harrell Plan discussed with: Patient JESSICA HARRELL MD Apr 05, 2024 17:36
[2024-04-05] MEDS: InsuLIN REG 1unit/0.01ml Soln (100units/ml) SC SCH (18:00)
[2024-04-05] MEDS: ACCU-CHEK COMFORT CURVE STRIP VI SCH (18:25)
[2024-04-05] MEDS: SODIUM CHLORIDE 0.9% 1,000 ML IV SCH (19:02)
[2024-04-05 20:44] LABS: INR 1.15 (0.9-1.15); Partial Thromboplastin Time 55.8 SEC (24.5-34.5); Prothrombin Time 12.1 sec (9.3-11.8)
[2024-04-06] VITALS (9 sets, daily range): BP systolic 99–126; BP diastolic 68–80; PULSE 66–103; RESP 16–18; TEMP 98.4–102.1; O2SAT 96–99
[2024-04-06] MEDS: HYDROcodone-ACET 5/325MG TAB PO PRN (01:33)
[2024-04-06 06:46] LABS: Hematocrit 28.3 % (41.0-53.0); Hemoglobin 9.7 g/dL (13.5-17.5); Mean Corpuscular Hemoglobin 29.3 pg (28.0-32.0); Mean Corpuscular Hgb Conc. 34.2 g/dL (32.0-36.0); Mean Corpuscular Volume 85.6 fL (80.0-100.0); Platelet Count (auto) 105 10^3/uL (140-450); Red Blood Cells 3.31 10^6/uL (4.5-5.90); Red Cell Distribution Width 15.7 % (11.8-14.3)
[2024-04-06 07:01] LABS: Albumin 3.8 g/dL (3.2-4.8); Anion Gap 8 (5-15); BUN/Creatinine Ratio 13.1 (10.0-20.0); Blood Urea Nitrogen 11 mg/dL (9-23); Calcium 9.1 mg/dL (8.7-10.4); Carbon Dioxide 24 mmol/L (20-31); Chloride 105 mmol/L (98-107); Glucose 87 mg/dL (74-106); Magnesium 2.2 mg/dL (1.6-2.6); Sodium 137 mmol/L (136-145)
[2024-04-06 07:02] LABS: Bilirubin, Total 0.9 mg/dL (0.2-1.0); Phosphorus 3.1 mg/dL (2.4-5.1)
[2024-04-06 07:12] LABS: Alanine Aminotransferase 120 U/L (7-40); Alkaline Phosphatase 161 U/L (46-116); Aspartate Aminotransferase 189 U/L (13-40); Potassium 3.2 mmol/L (3.5-5.1)
[2024-04-06 07:33] LABS: Basophils % (manual) 0 (0.0-2.0); Blast Cells 0; Eosinophils % (manual) 0 (0-7); Metamyelocytes % 0; Myelocytes % 0; Promyelocytes % 0; Reactive Lymphocytes 0
[2024-04-06 09:40] LABS: Band Neutrophils % (manual) 3; Lymphocytes % (manual) 12 (10.0-50.0); Monocytes % (manual) 15 (0-12)
[2024-04-06 09:41] LABS: Anisocytosis Slight; Large Platelets FEW; Tear Drop Cells FEW
[2024-04-06 09:42] LABS: Platelet Estimate Decrea
[2024-04-06] MEDS: POTASSIUM CHL 20MEQ/100ML 100 ML IV ONE (10:29)
[2024-04-06 11:06] LABS: AFP Serum Tumor Marker <1.8 ng/mL (0.0-8.4)
[2024-04-06 12:06] LABS: Cancer Antigen (CA) 125 19.6 U/mL (Not Estab.)
--- NOTE | 2024-04-06 14:08 | DVHPNRES ---
Progress Note Date Seen: Apr 06, 2024 Resident Creating Document: ROB GUZMAN RESIDENT Medical Necessity Reason Pt with a Central, PICC or Fol: No Subjective Review of Systems pt seen and examined at bedside mentioning of no active complaints. Reports significant improvement in his symptoms. Objective vital signs Vital Sign Date Time Temp Pulse Resp B/P (MAP) Pulse Ox O2 Delivery O2 Flow Rate FiO2 04/06/24 13:22 99.1 101 18 105/72 (83) 99 99.1 04/06/24 08:23 Nasal Cannula* 2 28 Total Intake and Output 04/05/24 04/05/24 04/06/24 15:00 23:00 07:00 Intake Total 100 ml 0 ml 450 ml Balance 100 ml 0 ml 450 ml medications Current Medications Medications Dose Ordered Sig/Naomi Route Start Time Stop Time Status Last Admin Dose Admin Albuterol 2.5 mg Q4HPRN PRN NEB 04/04/24 16:00 Cancel Ipratropium [place] 0.5 mg Q4HPRN PRN NEB 04/04/24 16:00 Cancel Pantoprazole Sodium 40 mg DAILY IV 04/05/24 10:00 04/06/24 09:25 40 MG Docusate Sodium 100 mg BIDPRN PRN PO 04/04/24 16:00 Piperacillin Sod/ Tazobactam Sod 100 ml @ 25 mls/hr Q8HR IV 04/04/24 22:00 04/06/24 05:22 25 MLS/HR Heparin Sodium/ Dextrose 250 ml @ 9 mls/hr Q24H IV 04/05/24 02:00 04/05/24 21:27 9 MLS/HR Sodium Chloride 1,000 ml @ 75 mls/hr [id number] IV 04/05/24 15:15 04/06/24 05:22 75 MLS/HR Diagnostic Test (Pha) 1 strip Q6HR 04/05/24 18:00 04/06/24 11:40 1 STRIP Insulin Human Regular Q6HR SC 04/05/24 18:00 Dextrose 50 ml UD PRN IV 04/05/24 17:15 Acetaminophen/ Hydrocodone Bitart 1 tab Q6HPRN PRN PO 04/06/24 01:00 04/06/24 11:33 1 TAB Examination Gen: alert and oriented X4, no distress Resp: bilateral a/e + CVS: normal s1/s2, no murmurs GI: soft Neuro : normal speech and tone laboratory and microbiology Laboratory Tests 04/06/24 05:54 Test 04/06/24 05:54 Range/Units Serum Glucose 87 74-106 mg/dL Microbiology Date/Time Source Procedure Growth Status 04/05/24 00:00 Nose MRSA Screen - Final Complete 04/04/24 16:57 Blood Blood Culture - Preliminary Resulted Labs and/or images reviewed: Labs reviewed by me, Image(s) reviewed by me Problem List/Assessment/Plan Problem List/Assessment/Plan #Sepsis due to liver abscess -IV fluids -IV antibiotics -blood culture - ordered MRI abdomen with and without contrast #Acute hypoxic resp failure due to covid pneumonia -resolving , on room air #COVID pneumonia -on 02 # hypokalemia - repleted #GERD -IV Protonix #?portal vein thrombosis -was on eliquis - IV heparin #Normocytic anemia -CBC monitor #Multi-septated mass adjacent to the gallbladder measuring 5 by 4.6 x 3.7 cm likely liver abscess -IV antibiotics -surgery consult and GI consult #Thrombocytopenia likely due to sepsis -CBC monitor #2 small 6 mm noncalcified pulmonary nodules on the right -follow up with repeat CT #Aorta bi iliac stent in the abdominal aorta beginning just below the renal arteries and extending into the proximal iliac vessels bilaterally -seen on CT #Acute Resp alkalosis with partial comp met acidosis -likely due to early sepsis #DVT prophylaxis -on heparin drip Code status, full code Case discussion with Dr Bose Plan discussed with: Patient, Other (RN) Date of Service: Apr 06, 2024 Billing Provider: PARAMJIT BOSE MD Common Visit Codes: [id number] INP/OBS CARE(HIGH) ROB GUZMAN RESIDENT Apr 06, 2024 14:08 PARAMJIT BOSE MD Apr 09, 2024 16:25
[2024-04-06 16:07] LABS: COVID19 ANTIGEN SOFIA FIA POSITIVE (NEGATIVE)
--- NOTE | 2024-04-06 17:56 | DVHINCON2 ---
Date of service: Apr 06, 2024 Family History: FH: cancer G8 BROTHER FH: renal failure G8 MOTHER Allergies: Coded Allergies: NO KNOWN ALLERGIES (Unverified , 04/04/24) Home Meds Reported Medications Famotidine (Famotidine) 40 Mg Tab, 1 TAB PO DAILY 04/05/24 Aspirin (Aspirin Low Dose) 81 Mg Tab, 1 TAB PO DAILY 04/05/24 Atorvastatin Calcium (ATORVASTATIN CALCIUM) 40 Mg Tab, 1 TAB PO DAILY 04/05/24 Apixaban Base (ELIQUIS) 5 Mg Tab, 1 TAB PO BID 04/05/24 Current Medications Current Medications Medications (Trade) Dose Ordered Sig/Naomi Route PRN Reason Start Time Stop Time Status Last Admin Diagnostic Test (Pha) (Accu-Chek Comfort Curve T) 1 strip Q6HR 04/05/24 18:00 04/06/24 17:30 Insulin Human Regular (InsuLIN R) Q6HR SC 04/05/24 18:00 Acetaminophen/ Hydrocodone Bitart (Andreas 5/325MG Tab) 1 tab Q6HPRN PRN PO MILD PAIN (1-3 PAIN SCALE) 04/06/24 01:00 04/06/24 11:33 Vital Signs Vital Signs Date Time Temp Pulse Resp B/P (MAP) Pulse Ox O2 Delivery O2 Flow Rate FiO2 04/06/24 17:03 99.0 103 18 110/78 (89) 99 99.0 04/06/24 10:23 Nasal Cannula* 2 28 Labs/Diagnostic Data Labs Test 04/06/24 17:24 04/06/24 15:45 04/06/24 05:54 04/05/24 19:39 Range/Units POC Glucose 95 70-106 mg/dl SARS-CoV-2 Antigen (Rapid) Positive *A NEGATIVE White Blood Count 9.0 # 4.4-10.8 10^3/uL Red Blood Count 3.31 L 4.5-5.90 10^6/uL Hemoglobin 9.7 L 13.5-17.5 g/dL Hematocrit 28.3 L 41.0-53.0 % Mean Corpuscular Volume 85.6 80.0-100.0 fL Mean Corpuscular Hemoglobin 29.3 28.0-32.0 pg Mean Corpuscular Hemoglobin Concent 34.2 32.0-36.0 g/dL Red Cell Distribution Width 15.7 H 11.8-14.3 % Platelet Count 105 L 140-450 10^3/uL Mean Platelet Volume 11.5 H 6.9-10.8 fL Neutrophils (%) (Auto) 37.0-80.0 % Lymphocytes (%) (Auto) 10.0-50.0 % Monocytes (%) (Auto) 0.0-12.0 % Basophils (%) (Auto) 0.0-2.0 % Neutrophils # (Auto) 1.6-8.6 10 ^3/uL Lymphocytes # (Auto) 0.4-5.4 10 ^3/uL Monocytes # (Auto) 0-1.3 10 ^3/uL Differential Total Cells Counted 100.0 100 Neutrophils % (Manual) 70 37.0-80.0 Band Neutrophils % (Manual) 3 Lymphocytes % (Manual) 12 10.0-50.0 Monocytes % (Manual) 15 H 0-12 Eosinophils % (Manual) 0 0-7 Basophils % (Manual) 0 0.0-2.0 Metamyelocytes % (manual) 0 Myelocytes % (Manual) 0 Promyelocytes % (Manual) 0 Blast Cells % (Manual) 0 Reactive Lymphocytes 0 Platelet Estimate Decrea Large Platelets Few Anisocytosis (manual) Slight Tear Drop Cells Few Activated Partial Thromboplast Time 62.4 H 24.5-34.5 SEC Sodium Level 137 136-145 mmol/L Potassium Level 3.2 L 3.5-5.1 mmol/L Chloride Level 105 98-107 mmol/L Carbon Dioxide Level 24 20-31 mmol/L Anion Gap 8 5-15 Blood Urea Nitrogen 11 9-23 mg/dL Creatinine 0.84 0.700-1.30 mg/dL Glomerular Filtration Rate Calc 93 >90 mL/min BUN/Creatinine Ratio 13.1 10.0-20.0 Serum Glucose 87 74-106 mg/dL Calcium Level 9.1 8.7-10.4 mg/dL Phosphorus Level 3.1 2.4-5.1 mg/dL Magnesium Level 2.2 1.6-2.6 mg/dL Total Bilirubin 0.9 0.2-1.0 mg/dL Aspartate Amino Transferase (AST) 189 H 13-40 U/L Alanine Aminotransferase (ALT) 120 H 7-40 U/L Alkaline Phosphatase 161 H 46-116 U/L Total Protein 7.0 5.7-8.2 g/dL Albumin 3.8 3.2-4.8 g/dL Prothrombin Time 12.1 H 9.3-11.8 sec Prothrombin Time INR 1.15 0.9-1.15 Test 04/05/24 07:20 04/04/24 16:50 04/04/24 16:40 04/04/24 15:20 Range/Units Eosinophils (%) (Auto) 0.0 0.0-7.0 % Eosinophils # (Auto) 0 0-0.8 10 ^3/uL Basophils # (Auto) 0 0-0.2 10 ^3/uL Nucleated Red Blood Cells 0.0 % Tumor Marker Alpha Fetoprotein <1.8 0.0-8.4 ng/mL Carcinoembryonic Antigen 1.58 <=5.0 ng/mL CA 125 Antigen 19.6 Not Estab. U/mL Blood Gas Specimen Type Arterial Blood Gas Sample Site Left radial Blood Gas Patient Temperature 37.0 Arterial Blood Date Drawn [id number] Arterial Blood pH 7.487 H 7.350-7.450 Arterial Blood Partial Pressure CO2 30.5 L 35.0-48.0 mmHg Arterial Blood Partial Pressure O2 73.7 L 83.0-108.0 mmHg Arterial Blood HCO3 22.6 21.0-28.0 mmol/L Arterial Blood Oxygen Saturation 94.7 94.0-98.0 % Arterial Blood Base Excess -0.3 -2.0-3.0 mmol/L Arterial Blood Oxyhemoglobin 93.9 L 94.0-98.0 % Arterial Blood Carboxyhemoglobin 0.2 L 0.5-1.5 % Arterial Blood Methemoglobin 0.6 0.0-1.5 % Doc Test Yes Blood Gas Total Hemoglobin 10.10 L 13.5-17.5 g/dL Blood Gas Modality Room air FiO2 % 21.0 Urine Color Dark-yellow Yellow Urine Clarity Clear Clear Urine pH 6.0 5.0-9.0 Urine Specific [place] 1.035 1.001-1.035 Urine Protein 2+ H Negative Urine Ketones Trace Negative Urine Blood 1+ H Negative /uL Urine Nitrite Negative Negative Urine Bilirubin 1+ Negative Urine Urobilinogen 12 H Negative mg/dL Urine Leukocyte Esterase Negative Negative /uL Urine RBC 6 0 - 3 /hpf Urine WBC 3 0 - 3 /hpf Urine Squamous Epithelial Cells Few <5 /hpf Urine Bacteria None seen None Seen /hpf Urine Mucus Few None Seen Urine Glucose Normal Normal mg/dL Test 04/04/24 10:15 Range/Units Lipase 32 12-53 U/L Microbiology Date/Time Source Procedure Growth Status 04/05/24 00:00 Nose MRSA Screen - Final Complete 04/04/24 16:57 Blood Blood Culture - Preliminary Resulted Assessment 557211 R/O AC CHOLECYSTITIS CT NEG FOR GALLSTONES POSITIVE FOR COVID INFECTION HIGH RISK FOR SURGERY LIVER MASS/ABSCESS MRCP R/O CBD STONE OBSTRUCTION IF INDICATED ERCP IF SURGERY CONSIDERED BASED ON ONGOING EVAL TRANSFER TO HIGHER LEVEL OF CARE Plan discussed with: Other EULA BRUNER MD Apr 06, 2024 17:56
--- NOTE | 2024-04-06 18:26 | DVHINCON2 ---
DATE OF CONSULTATION: 04/06/2024 HISTORY OF PRESENT ILLNESS: This 73-year-old years old, comes to the Emergency Room with complaints of abdominal pain, severe in the epigastrium and right upper quadrant. He was in [facility] before [place], and found to have some possible blood clot in the lower extremities. The patient is a poor historian, and he was put on Eliquis for possible blood clot in the liver, so waiting for some report from [place]. The patient has got history of aneurysm surgery for aortic aneurysm with stent placement about 6 months ago, and currently he has been diagnosed with COVID as well, and I was asked to see him in regards to a gallbladder issue. Ultrasound done showed a gallbladder from the liver mass. There is a collection of a liver mass close to the gallbladder, and abscess cannot be ruled out. Reason for the abscess is not clear. The CT scan is necessary for evidence of cholelithiasis. PAST MEDICAL HISTORY: Hyperlipidemia, GERD, possible PE, possible DVT, and aortic aneurysm surgery. PHYSICAL EXAMINATION: VITAL SIGNS: On examination, afebrile, stable signs. HEENT: With no evidence of pallor, cyanosis, or jaundice. NECK: Supple, nontender with no thyromegaly, lymphadenopathy. CHEST AND LUNGS: Clear. HEART: Within normal limits. ABDOMEN: Soft. NEUROLOGIC: Not assessed. CLINICAL IMPRESSION: Rule out acute cholecystitis, rule out a liver mass and liver abscess; etiology is not clear. He is very high risk for surgery based upon the history of aneurysm surgery done recently, and also the gallbladder being negative for gallstones on CT scan. The liver enzymes are elevated. He is going to be MRCP'ed; and if MRCP cannot be done, then he probably will need to be considered for transfer to higher level of care in case surgery is considered for the liver mass. MD YAS Wang/ALTAGRACIA TID: [id number] RECEIPT: [id number] cc: ZENAIDA DUFF
[2024-04-07] VITALS (10 sets, daily range): BP systolic 95–124; BP diastolic 59–71; PULSE 69–99; RESP 17–19; TEMP 98–100.4; O2SAT 98–100
[2024-04-07 06:55] LABS: Anion Gap 7 (5-15); Carbon Dioxide 25 mmol/L (20-31); Chloride 104 mmol/L (98-107); Sodium 136 mmol/L (136-145)
[2024-04-07 06:57] LABS: Basophils # (auto) 0 10 ^3/uL (0-0.2); Basophils % (auto) 0.3 % (0.0-2.0); Eosinophils # (auto) 0 10 ^3/uL (0-0.8); Eosinophils % (auto) 0.2 % (0.0-7.0); Hematocrit 28.4 % (41.0-53.0); Hemoglobin 9.3 g/dL (13.5-17.5); Lymphocytes # (auto) 1.1 10 ^3/uL (0.4-5.4); Mean Corpuscular Hemoglobin 28.4 pg (28.0-32.0); Mean Corpuscular Hgb Conc. 32.7 g/dL (32.0-36.0); Mean Corpuscular Volume 86.7 fL (80.0-100.0); Monocytes # (auto) 1.1 10 ^3/uL (0-1.3); Monocytes % (auto) 11.3 % (0.0-12.0); Neutrophils # (auto) 7.6 10 ^3/uL (1.6-8.6); Neutrophils % (auto) 77.2 % (37.0-80.0); Platelet Count (auto) 105 10^3/uL (140-450); Red Blood Cells 3.28 10^6/uL (4.5-5.90); Red Cell Distribution Width 15.9 % (11.8-14.3); White Blood Cell 9.8 10^3/uL (4.4-10.8)
[2024-04-07 07:01] LABS: BUN/Creatinine Ratio 9.9 (10.0-20.0); Glucose 86 mg/dL (74-106)
[2024-04-07 07:04] LABS: Blood Urea Nitrogen 8 mg/dL (9-23); Potassium 3.3 mmol/L (3.5-5.1)
[2024-04-07 07:44] LABS: INR 1.15 (0.9-1.15); Partial Thromboplastin Time 58.8 SEC (24.5-34.5); Prothrombin Time 12.3 sec (9.3-11.8)
[2024-04-07] MEDS: POTASSIUM CHL 20MEQ/100ML 100 ML IV ONE (09:22)
--- NOTE | 2024-04-07 09:53 | DVHPN2 ---
Progress Note Date Seen: Apr 07, 2024 Medical Necessity Reason Pt with a Central, PICC or Fol: No Objective vital signs Vital Sign Date Time Temp Pulse Resp B/P (MAP) Pulse Ox O2 Delivery O2 Flow Rate FiO2 04/07/24 09:03 98.8 77 17 117/68 (84) 100 98.8 04/07/24 08:01 Nasal Cannula* 2 28 Total Intake and Output 04/06/24 04/06/24 04/07/24 15:00 23:00 07:00 Intake Total 475.5 ml 746 ml 100 ml Balance 475.5 ml 746 ml 100 ml medications Current Medications Medications Dose Ordered Sig/Naomi Route Start Time Stop Time Status Last Admin Dose Admin Albuterol 2.5 mg Q4HPRN PRN NEB 04/04/24 16:00 Cancel Ipratropium [place] 0.5 mg Q4HPRN PRN NEB 04/04/24 16:00 Cancel Pantoprazole Sodium 40 mg DAILY IV 04/05/24 10:00 04/07/24 09:18 40 MG Docusate Sodium 100 mg BIDPRN PRN PO 04/04/24 16:00 Piperacillin Sod/ Tazobactam Sod 100 ml @ 25 mls/hr Q8HR IV 04/04/24 22:00 04/07/24 05:52 25 MLS/HR Heparin Sodium/ Dextrose 250 ml @ 9 mls/hr Q24H IV 04/05/24 02:00 04/06/24 18:36 9 MLS/HR Sodium Chloride 1,000 ml @ 75 mls/hr [id number] IV 04/05/24 15:15 04/06/24 17:32 75 MLS/HR Diagnostic Test (Pha) 1 strip Q6HR 04/05/24 18:00 04/07/24 05:53 1 STRIP Insulin Human Regular Q6HR SC 04/05/24 18:00 Dextrose 50 ml UD PRN IV 04/05/24 17:15 Acetaminophen/ Hydrocodone Bitart 1 tab Q6HPRN PRN PO 04/06/24 01:00 04/06/24 21:44 1 TAB laboratory and microbiology Laboratory Tests 04/07/24 06:21 Test 04/07/24 06:21 Range/Units Serum Glucose 86 74-106 mg/dL Microbiology Date/Time Source Procedure Growth Status 04/05/24 00:00 Nose MRSA Screen - Final Complete 04/04/24 16:57 Blood Blood Culture - Preliminary Resulted Problem List/Assessment/Plan Problem List/Assessment/Plan AFEBRILE VSS ABD SOFT LESS TENDER LFT ELEVATED AWAIT MRCP CONTINUE CLOSE OBSERVATION Plan discussed with: Other EULA BRUNER MD Apr 07, 2024 09:53
--- NOTE | 2024-04-07 13:29 | DVHPN2 ---
Progress Note - Dictate Date Seen: Apr 07, 2024 Medical Necessity Reason Pt with a Central, PICC or Fol: No Subjective Patient has got complaints of weakness tiredness chronic cough COVID symptoms MRI MRCP is pending No hematemesis no melena vital signs Vital Sign Date Time Temp Pulse Resp B/P (MAP) Pulse Ox O2 Delivery O2 Flow Rate FiO2 04/07/24 11:50 85 18 109/70 (83) 04/07/24 10:05 100 Room Air 0.0 04/07/24 10:05 21 04/07/24 09:03 98.8 98.8 Total Intake and Output 04/06/24 04/06/24 04/07/24 15:00 23:00 07:00 Intake Total 475.5 ml 746 ml 100 ml Balance 475.5 ml 746 ml 100 ml medications Current Medications Medications Dose Ordered Sig/Naomi Route Start Time Stop Time Status Last Admin Dose Admin Albuterol 2.5 mg Q4HPRN PRN NEB 04/04/24 16:00 Cancel Ipratropium [place] 0.5 mg Q4HPRN PRN NEB 04/04/24 16:00 Cancel Pantoprazole Sodium 40 mg DAILY IV 04/05/24 10:00 04/07/24 09:18 40 MG Docusate Sodium 100 mg BIDPRN PRN PO 04/04/24 16:00 Piperacillin Sod/ Tazobactam Sod 100 ml @ 25 mls/hr Q8HR IV 04/04/24 22:00 04/07/24 05:52 25 MLS/HR Heparin Sodium/ Dextrose 250 ml @ 9 mls/hr Q24H IV 04/05/24 02:00 04/06/24 18:36 9 MLS/HR Sodium Chloride 1,000 ml @ 75 mls/hr [id number] IV 04/05/24 15:15 04/06/24 17:32 75 MLS/HR Diagnostic Test (Pha) 1 strip Q6HR 04/05/24 18:00 04/07/24 11:47 1 STRIP Insulin Human Regular Q6HR SC 04/05/24 18:00 Dextrose 50 ml UD PRN IV 04/05/24 17:15 Acetaminophen/ Hydrocodone Bitart 1 tab Q6HPRN PRN PO 04/06/24 01:00 04/07/24 11:48 1 TAB objective Abdomen soft mild nonspecific tenderness no rigidity no guarding no masses felt laboratory and microbiology Laboratory Tests 04/07/24 06:21 Test 04/07/24 06:21 Range/Units Serum Glucose 86 74-106 mg/dL Assessment/Plan 73-year-old male with complaints of severe abdominal pain history of hyperlipidemia history of GERD found to have possible liver blood clot or so at [facility] not unable to get much detailed history came with severe abdominal pain ultrasound and CT scan showing a liver mass patient also has got got COVID. His alk phos is 221 ALT is 50 AST is 55. Clinical impression Possible liver abscess rule out cBD stones patient has got COVID whether discovered related or other pathology in the biliary tract disease can not be excluded With weight loss in the liver mass malignancy also can not be excluded Patient is awaiting MRI MRCP Depending upon the may need further evaluation and treatment bleeding ERCP in a referral center Thank you Dr. Sharri Tom discussed with: Patient JESSICA CHAVEZ MD Apr 07, 2024 13:29
--- NOTE | 2024-04-07 21:50 | DVHPNRES ---
Progress Note Date Seen: Apr 07, 2024 Resident Creating Document: EDUARDO BROWN RESIDENT Medical Necessity Reason Pt with a Central, PICC or Fol: No Subjective Review of Systems Patient seen and examined at bedside Mentioned no active complaint Started on full liquid diet per GI Objective vital signs Vital Sign Date Time Temp Pulse Resp B/P (MAP) Pulse Ox O2 Delivery O2 Flow Rate FiO2 04/07/24 21:00 100.0 99 18 124/71 (88) 99 100.0 04/07/24 20:00 Nasal Cannula* 2 28 Total Intake and Output 04/06/24 04/06/24 04/07/24 15:00 23:00 07:00 Intake Total 475.5 ml 746 ml 100 ml Balance 475.5 ml 746 ml 100 ml medications Current Medications Medications Dose Ordered Sig/Naomi Route Start Time Stop Time Status Last Admin Dose Admin Albuterol 2.5 mg Q4HPRN PRN NEB 04/04/24 16:00 Cancel Ipratropium [place] 0.5 mg Q4HPRN PRN NEB 04/04/24 16:00 Cancel Pantoprazole Sodium 40 mg DAILY IV 04/05/24 10:00 04/07/24 09:18 40 MG Docusate Sodium 100 mg BIDPRN PRN PO 04/04/24 16:00 Piperacillin Sod/ Tazobactam Sod 100 ml @ 25 mls/hr Q8HR IV 04/04/24 22:00 04/07/24 21:23 25 MLS/HR Heparin Sodium/ Dextrose 250 ml @ 9 mls/hr Q24H IV 04/05/24 02:00 04/06/24 18:36 9 MLS/HR Sodium Chloride 1,000 ml @ 75 mls/hr [id number] IV 04/05/24 15:15 04/07/24 21:23 75 MLS/HR Diagnostic Test (Pha) 1 strip Q6HR 04/05/24 18:00 04/07/24 17:11 1 STRIP Insulin Human Regular Q6HR SC 04/05/24 18:00 Dextrose 50 ml UD PRN IV 04/05/24 17:15 Acetaminophen/ Hydrocodone Bitart 1 tab Q6HPRN PRN PO 04/06/24 01:00 04/07/24 20:02 1 TAB Examination Examination General Appearance: Alert, Oriented X3, Cooperative, No acute distress HEENT: EOMI Respiratory: Clear to auscultation, Normal air movement Cardiovascular: Regular rate, Normal S1, Normal S2 Abdominal: Normal bowel sounds Extremities: No cyanosis, No edema, Normal pulses, No tenderness/swelling Skin: No rashes, No breakdown Neuro: Normal speech and tone laboratory and microbiology Laboratory Tests 04/07/24 06:21 Test 04/07/24 06:21 Range/Units Serum Glucose 86 74-106 mg/dL Microbiology Date/Time Source Procedure Growth Status 04/05/24 00:00 Nose MRSA Screen - Final Complete 04/04/24 16:57 Blood Blood Culture - Preliminary Resulted Labs and/or images reviewed: Labs reviewed by me, Image(s) reviewed by me Problem List/Assessment/Plan Problem List/Assessment/Plan Assessment/plan #Sepsis due to liver abscess -IV fluids -IV antibiotics -blood culture #Acute hypoxic resp failure due to covid pneumonia -resolving , on room air #COVID pneumonia -on 02 #GERD -IV Protonix #?portal vein thrombosis -was on eliquis - IV heparin #hypokalemia Replaced -Monitor BMP #Normocytic anemia -CBC monitor #Multi-septated mass adjacent to the gallbladder measuring 5 by 4.6 x 3.7 cm likely liver abscess -IV antibiotics -surgery consult and GI consult -ordered MRCP and MRI with triple phase protocol, on hold due to COVID infection #Thrombocytopenia likely due to sepsis -CBC monitor #2 small 6 mm noncalcified pulmonary nodules on the right -follow up with repeat CT #Aorta bi iliac stent in the abdominal aorta beginning just below the renal arteries and extending into the proximal iliac vessels bilaterally -seen on CT #Acute Resp alkalosis with partial comp met acidosis -likely due to early sepsis #DVT prophylaxis -on heparin drip Code status, full code Case discussion with Dr Krish Tom discussed with: Patient, Other My Orders My Orders Orders - EDUARDO BROWN RESIDENT Procedure Category Date Status Time Mrcp Mri MRI 04/07/24 Logged 07:49 Mri Abdomen W And Wo MRI 04/07/24 Logged 07:49 Dietary Evaluation Review Recommendations by RD: Protein Supplementation Comments: 1) Initiate Ensure Enlive bid. 2) Advance patient diet when medically feasible to cardiac diet. 3) Monitor PO intake and labs. Expected Outcomes/Goals: 1) Patient labs or appetite to improve 2) Patient diet to advance 3) F/u in 2-3 days Date of Service: Apr 07, 2024 Billing Provider: PARAMJIT BOSE MD Common Visit Codes: [id number] INP/OBS CARE(HIGH) EDUARDO BROWN RESIDENT Apr 07, 2024 21:50 PARAMJIT BOSE MD Apr 09, 2024 16:26
[2024-04-08] VITALS (9 sets, daily range): BP systolic 104–121; BP diastolic 63–73; PULSE 72–112; RESP 17–18; TEMP 97.3–100.3; O2SAT 95–99
[2024-04-08 07:07] LABS: Basophils # (auto) 0 10 ^3/uL (0-0.2); Basophils % (auto) 0.1 % (0.0-2.0); Eosinophils # (auto) 0 10 ^3/uL (0-0.8); Hematocrit 26.6 % (41.0-53.0); Hemoglobin 8.9 g/dL (13.5-17.5); Lymphocytes # (auto) 1.9 10 ^3/uL (0.4-5.4); Lymphocytes % (auto) 12.1 % (10.0-50.0); Mean Corpuscular Hemoglobin 28.2 pg (28.0-32.0); Mean Corpuscular Hgb Conc. 33.3 g/dL (32.0-36.0); Mean Corpuscular Volume 84.8 fL (80.0-100.0); Monocytes # (auto) 1.2 10 ^3/uL (0-1.3); Monocytes % (auto) 7.2 % (0.0-12.0); Neutrophils % (auto) 80.6 % (37.0-80.0); Platelet Count (auto) 93 10^3/uL (140-450); Red Blood Cells 3.13 10^6/uL (4.5-5.90); Red Cell Distribution Width 15.8 % (11.8-14.3); White Blood Cell 16.1 10^3/uL (4.4-10.8)
[2024-04-08 07:21] LABS: INR 1.29 (0.9-1.15); Partial Thromboplastin Time 69.5 SEC (24.5-34.5); Prothrombin Time 13.4 sec (9.3-11.8)
[2024-04-08 07:26] LABS: Anion Gap 7 (5-15); BUN/Creatinine Ratio 9.3 (10.0-20.0); Calcium 8.9 mg/dL (8.7-10.4); Carbon Dioxide 23 mmol/L (20-31); Chloride 104 mmol/L (98-107); Glucose 101 mg/dL (74-106)
[2024-04-08 07:27] LABS: Albumin 3.6 g/dL (3.2-4.8)
[2024-04-08 07:28] LABS: Bilirubin, Total 0.9 mg/dL (0.2-1.0); Total Protein 6.7 g/dL (5.7-8.2)
[2024-04-08 07:29] LABS: Alanine Aminotransferase 89 U/L (7-40); Alkaline Phosphatase 122 U/L (46-116); Aspartate Aminotransferase 99 U/L (13-40); Blood Urea Nitrogen 7 mg/dL (9-23); Potassium 3.3 mmol/L (3.5-5.1); Sodium 134 mmol/L (136-145)
[2024-04-08] MEDS: POTASSIUM EFFERVESENT TAB 25 MEQ PO ONE (10:09)
--- NOTE | 2024-04-08 14:49 | DVHPN2 ---
Progress Note Date Seen: Apr 08, 2024 Resident Creating Document: NGOC KEY RESIDENT Has the PT tested + for MRSA If YES, has PT been informed?: No Medical Necessity Reason Pt with a Central, PICC or Fol: No Subjective Review of Systems Saw the patient at bedside, overall feels better than previous visit. Patient reports: Feels better Objective vital signs Vital Sign Date Time Temp Pulse Resp B/P (MAP) Pulse Ox O2 Delivery O2 Flow Rate FiO2 04/08/24 10:17 97 Room Air 04/08/24 10:17 0 21 04/08/24 09:00 97.3 72 18 104/67 (79) 97.3 Total Intake and Output 04/07/24 04/07/24 04/08/24 15:00 23:00 07:00 Intake Total 500 ml 262 ml 450 ml Output Total 400 ml 600 ml Balance 500 ml -138 ml -150 ml medications Current Medications Medications Dose Ordered Sig/Naomi Route Start Time Stop Time Status Last Admin Dose Admin Albuterol 2.5 mg Q4HPRN PRN NEB 04/04/24 16:00 Cancel Ipratropium [place] 0.5 mg Q4HPRN PRN NEB 04/04/24 16:00 Cancel Pantoprazole Sodium 40 mg DAILY IV 04/05/24 10:00 04/08/24 09:32 40 MG Docusate Sodium 100 mg BIDPRN PRN PO 04/04/24 16:00 Piperacillin Sod/ Tazobactam Sod 100 ml @ 25 mls/hr Q8HR IV 04/04/24 22:00 04/08/24 14:02 25 MLS/HR Heparin Sodium/ Dextrose 250 ml @ 9 mls/hr Q24H IV 04/05/24 02:00 04/07/24 22:46 9 MLS/HR Sodium Chloride 1,000 ml @ 75 mls/hr [id number] IV 04/05/24 15:15 04/08/24 10:04 75 MLS/HR Diagnostic Test (Pha) 1 strip Q6HR 04/05/24 18:00 04/08/24 11:32 1 STRIP Insulin Human Regular Q6HR SC 04/05/24 18:00 Dextrose 50 ml UD PRN IV 04/05/24 17:15 Acetaminophen/ Hydrocodone Bitart 1 tab Q6HPRN PRN PO 04/06/24 01:00 04/08/24 05:45 1 TAB Examination: GENERAL:Normal, HEENT:Normal, NECK:Normal, LUNGS:Normal, CVS:Normal, ABDOMEN:Normal (normal liver lower border. no focal tenderness noted, BS +), MSK:Normal, SKIN:Normal, NEURO:Normal, :Normal laboratory and microbiology Laboratory Tests 04/08/24 06:17 Test 04/08/24 06:17 Range/Units Serum Glucose 101 74-106 mg/dL Microbiology Date/Time Source Procedure Growth Status 04/05/24 00:00 Nose MRSA Screen - Final Complete 04/04/24 16:57 Blood Blood Culture - Preliminary Resulted Labs and/or images reviewed: Labs reviewed by me, Image(s) reviewed by me Problem List/Assessment/Plan Problem List/Assessment/Plan Reasons for consultation: LIVER MASS POSSIBLE ABSCESS Hospitalization Summary: A 73-year-old male with a history of aortic aneurysm surgery and hyperlipidemia presented with severe abdominal pain, nausea, vomiting, and significant weight loss. He was previously hospitalized for similar pain and a possible liver blood clot, for which he was prescribed Eliquis. Recent imaging revealed a liver mass near the gallbladder fossa, raising concerns about a possible abscess. GI Assessment: # Multi-septated mass adjacent to the gallbladder measuring 5.0 x 4.6 x 3.7 cm likely liver abscess # Possibility of a septated gallbladder mass is also a differential. # sepsis secondary to pyogenic liver abscess on IV Zosyn # questionable portal vein thrombosis # GERD on PPi - # secondary hypercoagulable state due to IV heparin drip # moderate thrombocytopenia on heparin # transaminitis with elevated alkaline phosphatase, trending down # acute hypoxic respiratory failure secondary due to COVID pneumonia GI Plan: # Medications: pantoprazole 40 mg daily IV continue. cautious use of heparin/LMW heparin as trending down platelets # Labs: Check CMP to trend AST/ALT/ALK phos, follow hepatitis panel, AFP to rule out hepatic malignancy. # Procedure: MRCP is pending, depending upon findings may need further evaluation and treatment bleeding ERCP in a referral center. IR guided abscess aspiration might be difficult due to the anatomic position of the collection. # Others: please avoid NSAIDs, alcohol, spicy, highly acidic and caustic diets. Please maintain an upright posture 3 hours after the meal. # please scheduled follow up with GI as outpatient with Dr. Jennifer Albert. Thank you so much for the opportunity to consult on your patient. GI team will follow the patient. In case of any questions or concerns please feel free to reach out. Case and action plan discussed with Dr. Lorraine Albert. Complex care planning needed total 41 minutes of detailed discussion. The patient and caregiver team agreed to the plan. Plan discussed with: Patient, Other Dietary Evaluation Review Recommendations by RD: Protein Supplementation Comments: 1) Initiate Ensure Enlive bid. 2) Advance patient diet when medically feasible to cardiac diet. 3) Monitor PO intake and labs. Expected Outcomes/Goals: 1) Patient labs or appetite to improve 2) Patient diet to advance 3) F/u in 2-3 days NGOC KEY RESIDENT Apr 08, 2024 14:49
--- NOTE | 2024-04-08 15:18 | DVHPNRES ---
Progress Note Date Seen: Apr 08, 2024 Resident Creating Document: LUIS ARMANDO PHIPPSSABINALAWANDA RESIDENT Has the PT tested + for MRSA If YES, has PT been informed?: No Medical Necessity Reason Pt with a Central, PICC or Fol: No Subjective Review of Systems Patient was seen and examined at bedside Patient reports that he is feeling well and does not complaint of any abdominal pain. Patient denied shortness of breath, chest pain, dizziness, nausea, vomiting, diarrhea. Objective vital signs Vital Sign Date Time Temp Pulse Resp B/P (MAP) Pulse Ox O2 Delivery O2 Flow Rate FiO2 04/08/24 10:17 97 Room Air 04/08/24 10:17 0 21 04/08/24 09:00 97.3 72 18 104/67 (79) 97.3 Total Intake and Output 04/07/24 04/07/24 04/08/24 15:00 23:00 07:00 Intake Total 500 ml 262 ml 450 ml Output Total 400 ml 600 ml Balance 500 ml -138 ml -150 ml medications Current Medications Medications Dose Ordered Sig/Naomi Route Start Time Stop Time Status Last Admin Dose Admin Albuterol 2.5 mg Q4HPRN PRN NEB 04/04/24 16:00 Cancel Ipratropium [place] 0.5 mg Q4HPRN PRN NEB 04/04/24 16:00 Cancel Pantoprazole Sodium 40 mg DAILY IV 04/05/24 10:00 04/08/24 09:32 40 MG Docusate Sodium 100 mg BIDPRN PRN PO 04/04/24 16:00 Piperacillin Sod/ Tazobactam Sod 100 ml @ 25 mls/hr Q8HR IV 04/04/24 22:00 04/08/24 14:02 25 MLS/HR Heparin Sodium/ Dextrose 250 ml @ 9 mls/hr Q24H IV 04/05/24 02:00 04/07/24 22:46 9 MLS/HR Sodium Chloride 1,000 ml @ 75 mls/hr [id number] IV 04/05/24 15:15 04/08/24 10:04 75 MLS/HR Diagnostic Test (Pha) 1 strip Q6HR 04/05/24 18:00 04/08/24 11:32 1 STRIP Insulin Human Regular Q6HR SC 04/05/24 18:00 Dextrose 50 ml UD PRN IV 04/05/24 17:15 Acetaminophen/ Hydrocodone Bitart 1 tab Q6HPRN PRN PO 04/06/24 01:00 04/08/24 05:45 1 TAB Examination Examination General Appearance: Alert, Oriented X3, Cooperative, No acute distress HEENT: EOMI Respiratory: Clear to auscultation, Normal air movement Cardiovascular: Regular rate, Normal S1, Normal S2 Abdominal: Normal bowel sounds Extremities: No cyanosis, No edema, Normal pulses, No tenderness/swelling Skin: No rashes, No breakdown Neuro: Normal speech and tone laboratory and microbiology Laboratory Tests 04/08/24 06:17 Test 04/08/24 06:17 Range/Units Serum Glucose 101 74-106 mg/dL Microbiology Date/Time Source Procedure Growth Status 04/05/24 00:00 Nose MRSA Screen - Final Complete 04/04/24 16:57 Blood Blood Culture - Preliminary Resulted Problem List/Assessment/Plan Problem List/Assessment/Plan #Sepsis due to liver abscess -IV fluids -IV antibiotics, Zosyn discontinued and meropenem 1 g IV q.8 hour started -blood culture #Acute hypoxic resp failure due to covid pneumonia -resolving , on room air #COVID pneumonia -on 02 #GERD -IV Protonix #?portal vein thrombosis -was on eliquis - IV heparin #hypokalemia Replaced -Monitor BMP #Normocytic anemia -CBC monitor #Multi-septated mass adjacent to the gallbladder measuring 5 by 4.6 x 3.7 cm likely liver abscess -IV antibiotics -surgery consult and GI consult -ordered MRCP and MRI with triple phase protocol, on hold due to COVID infection -intervention Radiology consulted for percutaneous drainage of liver abscess #Thrombocytopenia likely due to sepsis -CBC monitor #2 small 6 mm noncalcified pulmonary nodules on the right -follow up with repeat CT #Aorta bi iliac stent in the abdominal aorta beginning just below the renal arteries and extending into the proximal iliac vessels bilaterally -seen on CT #Acute Resp alkalosis with partial comp met acidosis -likely due to early sepsis #DVT prophylaxis -on heparin drip Code status, full code Case discussion with Dr Krish Tom discussed with: Patient Dietary Evaluation Review Recommendations by RD: Protein Supplementation Comments: 1) Initiate Ensure Enlive bid. 2) Advance patient diet when medically feasible to cardiac diet. 3) Monitor PO intake and labs. Expected Outcomes/Goals: 1) Patient labs or appetite to improve 2) Patient diet to advance 3) F/u in 2-3 days Date of Service: Apr 08, 2024 Billing Provider: PARAMJIT BOSE MD Common Visit Codes: [id number] INP/OBS CARE(HIGH) NIELS PHIPPS RESIDENT Apr 08, 2024 15:18 PARAMJIT BOSE MD Apr 09, 2024 16:26
--- NOTE | 2024-04-08 15:43 | DVHPN2 ---
Progress Note Date Seen: Apr 08, 2024 Has the PT tested + for MRSA If YES, has PT been informed?: No Medical Necessity Reason Pt with a Central, PICC or Fol: No Objective vital signs Vital Sign Date Time Temp Pulse Resp B/P (MAP) Pulse Ox O2 Delivery O2 Flow Rate FiO2 04/08/24 10:17 97 Room Air 04/08/24 10:17 0 21 04/08/24 09:00 97.3 72 18 104/67 (79) 97.3 Total Intake and Output 04/07/24 04/07/24 04/08/24 15:00 23:00 07:00 Intake Total 500 ml 262 ml 450 ml Output Total 400 ml 600 ml Balance 500 ml -138 ml -150 ml medications Current Medications Medications Dose Ordered Sig/Naomi Route Start Time Stop Time Status Last Admin Dose Admin Albuterol 2.5 mg Q4HPRN PRN NEB 04/04/24 16:00 Cancel Ipratropium [place] 0.5 mg Q4HPRN PRN NEB 04/04/24 16:00 Cancel Pantoprazole Sodium 40 mg DAILY IV 04/05/24 10:00 04/08/24 09:32 40 MG Docusate Sodium 100 mg BIDPRN PRN PO 04/04/24 16:00 Piperacillin Sod/ Tazobactam Sod 100 ml @ 25 mls/hr Q8HR IV 04/04/24 22:00 04/08/24 14:02 25 MLS/HR Heparin Sodium/ Dextrose 250 ml @ 9 mls/hr Q24H IV 04/05/24 02:00 04/07/24 22:46 9 MLS/HR Sodium Chloride 1,000 ml @ 75 mls/hr [id number] IV 04/05/24 15:15 04/08/24 10:04 75 MLS/HR Diagnostic Test (Pha) 1 strip Q6HR 04/05/24 18:00 04/08/24 11:32 1 STRIP Insulin Human Regular Q6HR SC 04/05/24 18:00 Dextrose 50 ml UD PRN IV 04/05/24 17:15 Acetaminophen/ Hydrocodone Bitart 1 tab Q6HPRN PRN PO 04/06/24 01:00 04/08/24 05:45 1 TAB laboratory and microbiology Laboratory Tests 04/08/24 06:17 Test 04/08/24 06:17 Range/Units Serum Glucose 101 74-106 mg/dL Microbiology Date/Time Source Procedure Growth Status 04/05/24 00:00 Nose MRSA Screen - Final Complete 04/04/24 16:57 Blood Blood Culture - Preliminary Resulted Problem List/Assessment/Plan Problem List/Assessment/Plan AFEBRILE VSS ABD SOFT LESS TENDER LFT ELEVATED AWAIT MRCP WBC ELEVATED CONTINUE CLOSE OBSERVATION URGENT IR EVAL FOR POSSIBLE CHOLECYSTOSTOMY INDICATED AND POSSIBLE LIVER MASS BIOPSY CONSIDER TRANSFER TO HIGHER LEVEL OF CARE IF SURGERY CONSIDERED FOR POSSIBLE LIVER MASS Plan discussed with: Other Dietary Evaluation Review Recommendations by RD: Protein Supplementation Comments: 1) Initiate Ensure Enlive bid. 2) Advance patient diet when medically feasible to cardiac diet. 3) Monitor PO intake and labs. Expected Outcomes/Goals: 1) Patient labs or appetite to improve 2) Patient diet to advance 3) F/u in 2-3 days EULA BRUNER MD Apr 08, 2024 15:43
[2024-04-08] MEDS: MEROPENEM 1GM IVPB 50 ML IV SCH (21:32)
[2024-04-09 05:00] VITALS: BP 97/67; PULSE 75; RESP 21; TEMP 99; O2SAT 95
[2024-04-09 07:16] LABS: INR 1.22 (0.9-1.15); Partial Thromboplastin Time 39.5 SEC (24.5-34.5); Prothrombin Time 12.7 sec (9.3-11.8)
[2024-04-09 07:25] LABS: Albumin 3.5 g/dL (3.2-4.8); Anion Gap 8 (5-15); BUN/Creatinine Ratio 9.2 (10.0-20.0); Bilirubin, Total 0.8 mg/dL (0.2-1.0); Calcium 8.8 mg/dL (8.7-10.4); Carbon Dioxide 23 mmol/L (20-31); Chloride 104 mmol/L (98-107); Glucose 101 mg/dL (74-106); Potassium 3.5 mmol/L (3.5-5.1); Total Protein 6.5 g/dL (5.7-8.2)
[2024-04-09 07:26] LABS: Alanine Aminotransferase 68 U/L (7-40); Alkaline Phosphatase 118 U/L (46-116); Aspartate Aminotransferase 80 U/L (13-40); Blood Urea Nitrogen 7 mg/dL (9-23); Sodium 135 mmol/L (136-145)
[2024-04-09 07:34] LABS: Basophils # (auto) 0 10 ^3/uL (0-0.2); Basophils % (auto) 0.2 % (0.0-2.0); Eosinophils # (auto) 0 10 ^3/uL (0-0.8); Eosinophils % (auto) 0.1 % (0.0-7.0); Hematocrit 26.5 % (41.0-53.0); Hemoglobin 8.7 g/dL (13.5-17.5); Lymphocytes # (auto) 1.6 10 ^3/uL (0.4-5.4); Lymphocytes % (auto) 13.8 % (10.0-50.0); Mean Corpuscular Hgb Conc. 32.7 g/dL (32.0-36.0); Mean Corpuscular Volume 85.6 fL (80.0-100.0); Monocytes # (auto) 0.9 10 ^3/uL (0-1.3); Monocytes % (auto) 7.7 % (0.0-12.0); Neutrophils % (auto) 78.2 % (37.0-80.0); Nucleated Red Blood Cells % 0.1 %; Platelet Count (auto) 99 10^3/uL (140-450); White Blood Cell 11.5 10^3/uL (4.4-10.8)
[2024-04-09] MEDS: Ensure Enlive Strawberry 8oz Bottle PO SCH (08:00)
[2024-04-09 09:00] VITALS: BP 108/73; PULSE 77; RESP 18; TEMP 98; O2SAT 96
[2024-04-09] MEDS: HEPARIN DRIP/D5W 100UNITS/ML 250 ML IV SCH ×2 (09:30→14:16)
[2024-04-09 10:00] VITALS: O2SAT 97
[2024-04-09 12:43] LABS: COVID19 ANTIGEN SOFIA FIA NEGATIVE (NEGATIVE)
[2024-04-09 13:00] VITALS: BP 117/78; PULSE 88; RESP 18; O2SAT 96
--- NOTE | 2024-04-09 14:32 | DVHPN2 ---
Progress Note Date Seen: Apr 09, 2024 Has the PT tested + for MRSA If YES, has PT been informed?: No Medical Necessity Reason Pt with a Central, PICC or Fol: No Objective vital signs Vital Sign Date Time Temp Pulse Resp B/P (MAP) Pulse Ox O2 Delivery O2 Flow Rate FiO2 04/09/24 13:00 88 18 117/78 (91) 96 04/09/24 09:00 98.0 98.0 04/09/24 08:00 Room Air* 0 21 Total Intake and Output 04/08/24 04/08/24 04/09/24 15:00 23:00 07:00 Intake Total 400 ml 700 ml 870 ml Output Total 450 ml Balance 400 ml 700 ml 420 ml medications Current Medications Medications Dose Ordered Sig/Naomi Route Start Time Stop Time Status Last Admin Dose Admin Albuterol 2.5 mg Q4HPRN PRN NEB 04/04/24 16:00 Cancel Ipratropium [place] 0.5 mg Q4HPRN PRN NEB 04/04/24 16:00 Cancel Pantoprazole Sodium 40 mg DAILY IV 04/05/24 10:00 04/09/24 10:54 40 MG Docusate Sodium 100 mg BIDPRN PRN PO 04/04/24 16:00 Sodium Chloride 1,000 ml @ 75 mls/hr [id number] IV 04/05/24 15:15 04/09/24 12:04 75 MLS/HR Diagnostic Test (Pha) 1 strip Q6HR 04/05/24 18:00 04/09/24 12:04 1 STRIP Insulin Human Regular Q6HR SC 04/05/24 18:00 Dextrose 50 ml UD PRN IV 04/05/24 17:15 Acetaminophen/ Hydrocodone Bitart 1 tab Q6HPRN PRN PO 04/06/24 01:00 04/08/24 05:45 1 TAB Meropenem 50 ml @ 17 mls/hr Q8HR IV 04/08/24 22:00 04/09/24 14:20 17 MLS/HR Enteral Nutritional Formula 240 ml BIDWM PO 04/09/24 08:00 04/09/24 08:00 240 ML Heparin Sodium/ Dextrose 250 ml @ 11 mls/hr [id number] IV 04/09/24 13:45 04/10/24 00:00 04/09/24 14:16 11 MLS/HR laboratory and microbiology Laboratory Tests 04/09/24 06:39 Test 04/09/24 06:39 Range/Units Serum Glucose 101 74-106 mg/dL Microbiology Date/Time Source Procedure Growth Status 04/05/24 00:00 Nose MRSA Screen - Final Complete 04/04/24 16:57 Blood Blood Culture - Preliminary Resulted Problem List/Assessment/Plan Problem List/Assessment/Plan AFEBRILE VSS ABD SOFT NON TENDER LFT ELEVATED AWAIT MRCP WBC DOWN CONTINUE CLOSE OBSERVATION URGENT IR EVAL FOR POSSIBLE CHOLECYSTOSTOMY INDICATED AND POSSIBLE LIVER MASS BIOPSY CONSIDER TRANSFER TO HIGHER LEVEL OF CARE IF SURGERY CONSIDERED FOR POSSIBLE LIVER MASS Plan discussed with: Patient, Other Dietary Evaluation Review Recommendations by RD: Protein Supplementation Comments: 1) Initiate Ensure Enlive bid. 2) Advance patient diet when medically feasible to cardiac diet. 3) Monitor PO intake and labs. Expected Outcomes/Goals: 1) Patient labs or appetite to improve 2) Patient diet to advance 3) F/u in 2-3 days EULA BRUNER MD Apr 09, 2024 14:32
--- NOTE | 2024-04-09 15:10 | DVHPN2 ---
Progress Note Date Seen: Apr 09, 2024 Resident Creating Document: [facility] KEY RESIDENT Has the PT tested + for MRSA If YES, has PT been informed?: No Medical Necessity Reason Pt with a Central, PICC or Fol: No Subjective Review of Systems Saw the patient at bedside, overall feels better than previous visit. Repeat COVID test came negative. Can be downgraded from isolation. Patient reports: Feels better Objective vital signs Vital Sign Date Time Temp Pulse Resp B/P (MAP) Pulse Ox O2 Delivery O2 Flow Rate FiO2 04/09/24 13:00 88 18 117/78 (91) 96 04/09/24 09:00 98.0 98.0 04/09/24 08:00 Room Air* 0 21 Total Intake and Output 04/08/24 04/08/24 04/09/24 15:00 23:00 07:00 Intake Total 400 ml 700 ml 870 ml Output Total 450 ml Balance 400 ml 700 ml 420 ml medications Current Medications Medications Dose Ordered Sig/Naomi Route Start Time Stop Time Status Last Admin Dose Admin Albuterol 2.5 mg Q4HPRN PRN NEB 04/04/24 16:00 Cancel Ipratropium [place] 0.5 mg Q4HPRN PRN NEB 04/04/24 16:00 Cancel Pantoprazole Sodium 40 mg DAILY IV 04/05/24 10:00 04/09/24 10:54 40 MG Docusate Sodium 100 mg BIDPRN PRN PO 04/04/24 16:00 Sodium Chloride 1,000 ml @ 75 mls/hr [id number] IV 04/05/24 15:15 04/09/24 12:04 75 MLS/HR Diagnostic Test (Pha) 1 strip Q6HR 04/05/24 18:00 04/09/24 12:04 1 STRIP Insulin Human Regular Q6HR SC 04/05/24 18:00 Dextrose 50 ml UD PRN IV 04/05/24 17:15 Acetaminophen/ Hydrocodone Bitart 1 tab Q6HPRN PRN PO 04/06/24 01:00 04/08/24 05:45 1 TAB Meropenem 50 ml @ 17 mls/hr Q8HR IV 04/08/24 22:00 04/09/24 14:20 17 MLS/HR Enteral Nutritional Formula 240 ml BIDWM PO 04/09/24 08:00 04/09/24 08:00 240 ML Heparin Sodium/ Dextrose 250 ml @ 11 mls/hr [id number] IV 04/09/24 13:45 04/10/24 00:00 04/09/24 14:16 11 MLS/HR Examination Examination: GENERAL:Normal, HEENT:Normal, NECK:Normal, LUNGS:Normal, CVS:Normal, ABDOMEN:Normal (normal liver lower border. no focal tenderness noted, BS +), MSK:Normal, SKIN:Normal, NEURO:Normal, :Normal laboratory and microbiology Laboratory Tests 04/09/24 06:39 Test 04/09/24 06:39 Range/Units Serum Glucose 101 74-106 mg/dL Microbiology Date/Time Source Procedure Growth Status 04/05/24 00:00 Nose MRSA Screen - Final Complete 04/04/24 16:57 Blood Blood Culture - Preliminary Resulted Labs and/or images reviewed: Labs reviewed by me, Image(s) reviewed by me Problem List/Assessment/Plan Problem List/Assessment/Plan Reasons for consultation: LIVER MASS POSSIBLE ABSCESS Hospitalization Summary: A 73-year-old male with a history of aortic aneurysm surgery and hyperlipidemia presented with severe abdominal pain, nausea, vomiting, and significant weight loss. He was previously hospitalized for similar pain and a possible liver blood clot, for which he was prescribed Eliquis. Recent imaging revealed a liver mass near the gallbladder fossa, raising concerns about a possible abscess. Was waiting for COVID test to be negative for MRI MRCP. GI Assessment: # Multi-septated mass adjacent to the gallbladder measuring 5.0 x 4.6 x 3.7 cm likely liver abscess # Possibility of a septated gallbladder mass is also a differential. # sepsis secondary to pyogenic liver abscess on IV Zosyn # questionable portal vein thrombosis # GERD on PPi - # secondary hypercoagulable state due to IV heparin drip # moderate thrombocytopenia on heparin # transaminitis with elevated alkaline phosphatase, trending down # acute hypoxic respiratory failure secondary due to COVID pneumonia GI Plan: # Medications: pantoprazole 40 mg daily IV continue. cautious use of heparin/LMW heparin as trending down platelets # Labs: Check CMP to trend AST/ALT/ALK phos, follow hepatitis panel, AFP, CA 125, CEA to rule out hepatic/pancreatic/colonic malignancy. # Procedure: Awaiting MRCP, based on results management with surgical cholecystectomy versus ERCP in a referral center versus IR guided abscess aspiration (might be difficult due to the anatomic position of the collection). # Others: please avoid NSAIDs, alcohol, spicy, highly acidic and caustic diets. Please maintain an upright posture 3 hours after the meal. Consider downgrading from isolation. # please schedule follow up with GI as outpatient with Dr. Jennifer Albert. Thank you so much for the opportunity to consult on your patient. GI team will follow the patient. In case of any questions or concerns please feel free to reach out. Case and action plan discussed with Dr. Lorraine Albert. Complex care planning needed total 43 minutes of detailed discussion. The patient and caregiver team agreed to the plan. Plan discussed with: Patient, Other (Primary team) Dietary Evaluation Review Recommendations by RD: Protein Supplementation Comments: 1) Initiate Ensure Enlive bid. 2) Advance patient diet when medically feasible to cardiac diet. 3) Monitor PO intake and labs. Expected Outcomes/Goals: 1) Patient labs or appetite to improve 2) Patient diet to advance 3) F/u in 2-3 days [facility] KEY RESIDENT Apr 09, 2024 15:10
[2024-04-09 15:55] LABS: INR 1.17 (0.9-1.15); Partial Thromboplastin Time 54.8 SEC (24.5-34.5); Prothrombin Time 12.2 sec (9.3-11.8)
--- NOTE | 2024-04-09 20:05 | DVH ---
CLINICAL HISTORY: LIVER MASS INCLUDE MRCP TECHNIQUE: MRI and MRCP of the abdomen was performed with and without gadolinium. 3D reconstructed images were obtained. 3D reconstructed images were created under concurrent radiologist supervision and archived on the PACS system. WID: COMPARISON: CT chest abdomen and pelvis from 04/04/2024 FINDINGS: Lower Thorax: Unremarkable. Liver and Biliary system: Normal-sized liver. There is a multi septate fluid containing mass in segme nt 5 of the liver measuring 5.9 x 6.3 x 7.0 cm on series 4, image 18 and series 3, image 15 , increas ed in size since recent CT where it measured 3.9 x 4.4 cm when measured in a similar fashion. 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 The main and right hepatic veins are patent. There is geographic relative T2 hyperintensity of the right lobe of the liver most pronounced in segment 5 surrounding the aforementioned fluid collection. The gallb ladder is normal caliber. There is no biliary ductal dilatation. Spleen: Unremarkable. Adrenal Glands and Kidneys: Unremarkable. Pancreas and Retroperitoneum: Unremarkable. Aorta and Major Vessels: There is aortoiliac stent graft better seen on recent CT, traversing an infr arenal abdominal aortic aneurysm measuring 4.8 cm transverse on series 3, image 15 and 5.3 cm AP on s eries 4, image 32. Bowel, Mesentery and Peritoneal space: There is mild colonic diverticulosis. There is no fluid collec tion or ascites. Normal appendix. Abdominal wall and Osseous Structures: No acute abnormality. IMPRESSION: 1. Increase in size of Multi septate fluid containing mass in segment 5 of the liver with surrounding edema in the adjacent parenchyma, favored to reflect abscess. 2. Occlusion of the left portal vein. 3. Aneurysm of the infrarenal abdominal aorta measuring at least 5.3 cm AP and 4.8 cm transverse, wit h aortoiliac stent grafts seen to better advantage on recent CT. 4. Mild distal colonic diverticulosis.
--- NOTE | 2024-04-09 20:48 | DVHPNRES ---
Progress Note Date Seen: Apr 09, 2024 Resident Creating Document: LUIS ARMANDO PHIPPSSABINALAWANDA RESIDENT Has the PT tested + for MRSA If YES, has PT been informed?: No Medical Necessity Reason Pt with a Central, PICC or Fol: No Subjective Review of Systems Patient was seen and examined at bedside Patient reports that he is feeling well and does not complaint of any abdominal pain. Patient denied shortness of breath, chest pain, dizziness, nausea, vomiting, diarrhea. Objective vital signs Vital Sign Date Time Temp Pulse Resp B/P (MAP) Pulse Ox O2 Delivery O2 Flow Rate FiO2 04/09/24 20:00 Room Air* 0 21 04/09/24 13:00 88 18 117/78 (91) 96 04/09/24 09:00 98.0 98.0 Total Intake and Output 04/08/24 04/08/24 04/09/24 15:00 23:00 07:00 Intake Total 400 ml 700 ml 870 ml Output Total 450 ml Balance 400 ml 700 ml 420 ml medications Current Medications Medications Dose Ordered Sig/Naomi Route Start Time Stop Time Status Last Admin Dose Admin Albuterol 2.5 mg Q4HPRN PRN NEB 04/04/24 16:00 Cancel Ipratropium [place] 0.5 mg Q4HPRN PRN NEB 04/04/24 16:00 Cancel Pantoprazole Sodium 40 mg DAILY IV 04/05/24 10:00 04/09/24 10:54 40 MG Docusate Sodium 100 mg BIDPRN PRN PO 04/04/24 16:00 Sodium Chloride 1,000 ml @ 75 mls/hr [id number] IV 04/05/24 15:15 04/09/24 12:04 75 MLS/HR Diagnostic Test (Pha) 1 strip Q6HR 04/05/24 18:00 04/09/24 17:13 1 STRIP Insulin Human Regular Q6HR SC 04/05/24 18:00 Dextrose 50 ml UD PRN IV 04/05/24 17:15 Acetaminophen/ Hydrocodone Bitart 1 tab Q6HPRN PRN PO 04/06/24 01:00 04/09/24 17:47 1 TAB Meropenem 50 ml @ 17 mls/hr Q8HR IV 04/08/24 22:00 04/09/24 14:20 17 MLS/HR Enteral Nutritional Formula 240 ml BIDWM PO 04/09/24 08:00 04/09/24 17:18 240 ML Heparin Sodium/ Dextrose 250 ml @ 11 mls/hr [id number] IV 04/09/24 13:45 04/10/24 00:00 04/09/24 14:16 11 MLS/HR Examination General Appearance: Alert, Oriented X3, Cooperative, No acute distress HEENT: EOMI Respiratory: Clear to auscultation, Normal air movement Cardiovascular: Regular rate, Normal S1, Normal S2 Abdominal: Normal bowel sounds Extremities: No cyanosis, No edema, Normal pulses, No tenderness/swelling Skin: No rashes, No breakdown Neuro: Normal speech and tone laboratory and microbiology Laboratory Tests 04/09/24 06:39 Test 04/09/24 06:39 Range/Units Serum Glucose 101 74-106 mg/dL Microbiology Date/Time Source Procedure Growth Status 04/05/24 00:00 Nose MRSA Screen - Final Complete 04/04/24 16:57 Blood Blood Culture - Preliminary Resulted Problem List/Assessment/Plan Problem List/Assessment/Plan #Sepsis due to liver abscess -IV fluids -IV antibiotics, on meropenem 1 g IV q.8 hour started -blood culture #Acute hypoxic resp failure due to covid pneumonia -resolving , on room air #COVID pneumonia -on 02 #GERD -IV Protonix #?portal vein thrombosis -was on eliquis - IV heparin #hypokalemia Replaced -Monitor BMP #Normocytic anemia -CBC monitor #Multi-septated mass adjacent to the gallbladder measuring 5 by 4.6 x 3.7 cm likely liver abscess -IV antibiotics -surgery consult and GI consult - MRCP and MRI of the abdomen showed 1. Increase in size of Multi septate fluid containing mass in segment 5 of the liver with surrounding edema in the adjacent parenchyma, favored to reflect abscess. 2. Occlusion of the left portal vein. 3. Aneurysm of the infrarenal abdominal aorta measuring at least 5.3 cm AP and 4.8 cm transverse, with aortoiliac stent grafts seen to better advantage on recent CT. 4. Mild distal colonic diverticulosis. -intervention Radiology consulted for percutaneous drainage of liver abscess, heparin to be held at midnight for procedure tomorrow. #Thrombocytopenia likely due to sepsis -CBC monitor #2 small 6 mm noncalcified pulmonary nodules on the right -follow up with repeat CT #Aorta bi iliac stent in the abdominal aorta beginning just below the renal arteries and extending into the proximal iliac vessels bilaterally -seen on CT #Acute Resp alkalosis with partial comp met acidosis -likely due to early sepsis #DVT prophylaxis -on heparin drip Code status, full code Case discussion with Dr Bose Plan discussed with: Patient My Orders My Orders Orders - NIELS PHIPPS Procedure Category Date Status Time Heparin Drip/D5w PHA 04/09/24 In Process 100units/Ml 13:45 Dietary Evaluation Review Recommendations by RD: Protein Supplementation Comments: 1) Initiate Ensure Enlive bid. 2) Advance patient diet when medically feasible to cardiac diet. 3) Monitor PO intake and labs. Expected Outcomes/Goals: 1) Patient labs or appetite to improve 2) Patient diet to advance 3) F/u in 2-3 days Date of Service: Apr 09, 2024 Billing Provider: PARAMJIT BOSE MD Common Visit Codes: [id number] INP/OBS CARE(HIGH) NIELS PHIPPS RESIDENT Apr 09, 2024 20:47 PARAMJIT BOSE MD Apr 11, 2024 15:26
[2024-04-09 22:03] LABS: INR 1.17 (0.9-1.15); Partial Thromboplastin Time 54.5 SEC (24.5-34.5); Prothrombin Time 12.2 sec (9.3-11.8)
[2024-04-10] VITALS (8 sets, daily range): BP systolic 103–139; BP diastolic 63–80; PULSE 18–98; RESP 14–91; TEMP 97.5–99; O2SAT 98–100
[2024-04-10 03:06] LABS: Basophils # (auto) 0 10 ^3/uL (0-0.2); Basophils % (auto) 0.2 % (0.0-2.0); Eosinophils # (auto) 0 10 ^3/uL (0-0.8); Eosinophils % (auto) 0.1 % (0.0-7.0); Hematocrit 26.7 % (41.0-53.0); Hemoglobin 8.8 g/dL (13.5-17.5); Lymphocytes # (auto) 1.6 10 ^3/uL (0.4-5.4); Lymphocytes % (auto) 14.7 % (10.0-50.0); Mean Corpuscular Hemoglobin 28.1 pg (28.0-32.0); Mean Corpuscular Hgb Conc. 32.9 g/dL (32.0-36.0); Mean Corpuscular Volume 85.5 fL (80.0-100.0); Monocytes # (auto) 0.9 10 ^3/uL (0-1.3); Neutrophils # (auto) 8.2 10 ^3/uL (1.6-8.6); Platelet Count (auto) 123 10^3/uL (140-450); Red Blood Cells 3.12 10^6/uL (4.5-5.90); Red Cell Distribution Width 15.8 % (11.8-14.3); White Blood Cell 10.7 10^3/uL (4.4-10.8)
[2024-04-10 03:15] LABS: Alanine Aminotransferase 70 U/L (7-40); Albumin 3.6 g/dL (3.2-4.8); Alkaline Phosphatase 133 U/L (46-116); Anion Gap 6 (5-15); Aspartate Aminotransferase 79 U/L (13-40); BUN/Creatinine Ratio 8.6 (10.0-20.0); Blood Urea Nitrogen 6 mg/dL (9-23); Calcium 8.9 mg/dL (8.7-10.4); Carbon Dioxide 23 mmol/L (20-31); Chloride 105 mmol/L (98-107); Glucose 105 mg/dL (74-106); Potassium 3.6 mmol/L (3.5-5.1); Sodium 134 mmol/L (136-145)
[2024-04-10 03:16] LABS: Bilirubin, Total 0.6 mg/dL (0.2-1.0); Total Protein 6.7 g/dL (5.7-8.2)
[2024-04-10 03:21] LABS: INR 1.15 (0.9-1.15); Partial Thromboplastin Time 37.3 SEC (24.5-34.5)
[2024-04-10] MEDS: LIDOCAINE 2%HCL (LOCAL ANESTH.) INJ 10ml MDV ONE (08:28)
[2024-04-10] MEDS: MIDAZOLAM HCL 2MG/2ML 2ml VIAL (1mg/ml) ONE (10:00)
[2024-04-10] MEDS: fentaNYL CITRATE 100 MCG/2 ML VL ONE (10:01)
--- NOTE | 2024-04-10 11:33 | DVHPN2 ---
Progress Note Date Seen: Apr 10, 2024 Resident Creating Document: [facility] KEY RESIDENT Has the PT tested + for MRSA If YES, has PT been informed?: No Medical Necessity Reason Pt with a Central, PICC or Fol: No Subjective Review of Systems Saw the patient at bedside, overall feels better than previous visit. Repeat COVID test came negative. Downgraded from isolation. MRI MRCP result noted. Patient reports: Feels better Objective vital signs Vital Sign Date Time Temp Pulse Resp B/P (MAP) Pulse Ox O2 Delivery O2 Flow Rate FiO2 04/10/24 10:00 98 Room Air* 0 21 04/10/24 09:00 98.5 80 18 103/63 (76) 98.5 Total Intake and Output 04/09/24 04/09/24 04/10/24 15:00 23:00 07:00 Intake Total 1243.75 ml 1996.48 ml 975 ml Balance 1243.75 ml 1996.48 ml 975 ml medications Current Medications Medications Dose Ordered Sig/Naomi Route Start Time Stop Time Status Last Admin Dose Admin Albuterol 2.5 mg Q4HPRN PRN NEB 04/04/24 16:00 Cancel Ipratropium [place] 0.5 mg Q4HPRN PRN NEB 04/04/24 16:00 Cancel Pantoprazole Sodium 40 mg DAILY IV 04/05/24 10:00 04/10/24 09:32 40 MG Docusate Sodium 100 mg BIDPRN PRN PO 04/04/24 16:00 Sodium Chloride 1,000 ml @ 75 mls/hr [id number] IV 04/05/24 15:15 04/09/24 12:04 75 MLS/HR Diagnostic Test (Pha) 1 strip Q6HR 04/05/24 18:00 04/10/24 05:32 1 STRIP Insulin Human Regular Q6HR SC 04/05/24 18:00 Dextrose 50 ml UD PRN IV 04/05/24 17:15 Acetaminophen/ Hydrocodone Bitart 1 tab Q6HPRN PRN PO 04/06/24 01:00 04/09/24 17:47 1 TAB Meropenem 50 ml @ 17 mls/hr Q8HR IV 04/08/24 22:00 04/10/24 05:13 17 MLS/HR Enteral Nutritional Formula 240 ml BIDWM PO 04/09/24 08:00 04/09/24 17:18 240 ML Examination GENERAL:Normal, Comfortable, not in acute distress HEENT:Normal, NECK:Normal, LUNGS:Normal, CVS:Normal, ABDOMEN:Normal (normal liver lower border. no focal tenderness noted, BS +), MSK:Normal, SKIN:Normal, NEURO:Normal, :Normal laboratory and microbiology Laboratory Tests 04/10/24 02:49 Test 04/10/24 02:49 Range/Units Serum Glucose 105 74-106 mg/dL Microbiology Date/Time Source Procedure Growth Status 04/05/24 00:00 Nose MRSA Screen - Final Complete 04/04/24 16:57 Blood Blood Culture - Preliminary Resulted Saw the patient at bedside, overall feels better than previous visit. Repeat COVID test came negative. Downgraded from isolation. MRI MRCP result noted. [place] [address] Ph: [phone] DIAGNOSTIC IMAGING Diagnostic Imaging Report : [id number] Signed PATIENT: GRECIA LOPEZ ACCT: [id number] UNIT: [id number] : 1950 LOC: [facility] ROOM / BED: [facility] / A AGE / SEX: 73 / M ADM STATUS: ADM IN SERVICE 1553 ORDERING PHYSICIAN: EULA ALBERT MD PROCEDURE(s): [id number] - MRI ABDOMEN W AND WO REASON: R/O LIVER MASS INCLUDE MRCP ORDER NUMBER(s): [id number], ACCESSION NUMBER(s): [id number] CLINICAL HISTORY: LIVER MASS INCLUDE MRCP TECHNIQUE: MRI and MRCP of the abdomen was performed with and without gadolinium. 3D reconstructed images were obtained. 3D reconstructed images were created under concurrent radiologist supervision and archived on the PACS system. WID: COMPARISON: CT chest abdomen and pelvis from 04/04/2024 FINDINGS: Lower Thorax: Unremarkable. Liver and Biliary system: Normal-sized liver. There is a multi septate fluid containing mass in segment 5 of the liver measuring 5.9 x 6.3 x 7.0 cm on series 4, image 18 and series 3, image 15 , increased in size since recent CT where it measured 3.9 x 4.4 cm when measured in a similar fashion. 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 The main and right hepatic veins are patent. There is geographic relative T2 hyperintensity of the right lobe of the liver most pronounced in segment 5 surrounding the aforementioned fluid collection. The gallbladder is normal caliber. There is no biliary ductal dilatation. Spleen: Unremarkable. Adrenal Glands and Kidneys: Unremarkable. Pancreas and Retroperitoneum: Unremarkable. Aorta and Major Vessels: There is aortoiliac stent graft better seen on recent CT, traversing an infrarenal abdominal aortic aneurysm measuring 4.8 cm transverse on series 3, image 15 and 5.3 cm AP on series 4, image 32. Bowel, Mesentery and Peritoneal space: There is mild colonic diverticulosis. There is no fluid collection or ascites. Normal appendix. Abdominal wall and Osseous Structures: No acute abnormality. IMPRESSION: 1. Increase in size of Multi septate fluid containing mass in segment 5 of the liver with surrounding edema in the adjacent parenchyma, favored to reflect abscess. 2. Occlusion of the left portal vein. 3. Aneurysm of the infrarenal abdominal aorta measuring at least 5.3 cm AP and 4.8 cm transverse, with aortoiliac stent grafts seen to better advantage on recent CT. 4. Mild distal colonic diverticulosis. ATED BY: JUDIT CUELLO MD DICTATED DATE/TIME: 04/09/242001 SIGNED BY: JUDIT CUELLO MD SIGNED DATE/TIME: 04/09/242001 CC: Labs and/or images reviewed: Labs reviewed by me, Image(s) reviewed by me Problem List/Assessment/Plan Problem List/Assessment/Plan Reasons for consultation: LIVER MASS POSSIBLE ABSCESS Hospitalization Summary: A 73-year-old male with a history of aortic aneurysm surgery and hyperlipidemia presented with severe abdominal pain, nausea, vomiting, and significant weight loss. He was previously hospitalized for similar pain and a possible liver blood clot, for which he was prescribed Eliquis. Recent imaging revealed a liver mass near the gallbladder fossa, raising concerns about a possible abscess. Was waiting for COVID test to be negative for MRI MRCP. GI Assessment: # Multi-septated mass adjacent to the gallbladder measuring 5.0 x 4.6 x 3.7 cm likely liver abscess # Expanding liver abcess noted in MRCP s/p US guided aspiration. # Possibility of a septated gallbladder mass is also a differential. # sepsis secondary to pyogenic liver abscess on IV Zosyn # questionable portal vein thrombosis # GERD on PPi # Occlusion of the left portal vein # Mild distal colonic diverticulosis - # secondary hypercoagulable state due to IV heparin drip # moderate thrombocytopenia on heparin # transaminitis with elevated alkaline phosphatase, trending down # acute hypoxic respiratory failure secondary due to COVID pneumonia #Aneurysm of the infrarenal abdominal aorta measuring at least 5.3 cm AP and 4.8 cm transverse, with aortoiliac stent grafts seen to better advantage on recent CT #Gram Positive Cocci (GPC) +ve x2 in blood culture. GI Plan: # Medications: pantoprazole 40 mg daily IV>> changed to oral daily. cautious use of heparin/LMW heparin as trending down platelets. Consider ID consult for bactermia and liver abcess for appropriate antibiotics and duration. # Labs: Check CMP to trend AST/ALT/ALK phos, follow hepatitis panel, AFP, CA 125, CEA to rule out hepatic/pancreatic/colonic malignancy. Follow blood culture , growing GPC. # Procedure: As per General surgery discretion interval cholecystectomy/ surgical management vs conservative treatment. Needs close follow up of the aortoiliac stent at higher level of care. # Imaging: interval MRI MRCP in 4 weeks outpatient [place] to recheck the pathology. # Others: please avoid NSAIDs, alcohol, spicy, highly acidic and caustic diets. Please maintain an upright posture 3 hours after the meal. # please schedule follow up with GI as outpatient with Dr. Jennifer Albert. Thank you so much for the opportunity to consult on your patient. GI team will sign-off. Please schedule outpatient follow up in 4 weeks. In case of any questions or concerns please feel free to reach out. Case and action plan discussed with Dr. Lorraine Albert. Complex care planning needed total 45 minutes of detailed discussion. The patient and caregiver team agreed to the plan. Plan discussed with: Patient, Other (Primary team. ) Dietary Evaluation Review Recommendations by RD: Protein Supplementation Comments: 1) Initiate Ensure Enlive bid. 2) Advance patient diet when medically feasible to cardiac diet. 3) Monitor PO intake and labs. Expected Outcomes/Goals: 1) Patient labs or appetite to improve 2) Patient diet to advance 3) F/u in 2-3 days NG[facility] KEY RESIDENT Apr 10, 2024 11:33
--- NOTE | 2024-04-10 11:41 | DVH ---
US ULTRA GUIDED ABCESS DRAINAGE HISTORY: LIVER ABSCESS PROCEDURE: An informed consent was obtained. The patient was placed supine on the CT table. IV sedati on was administered. The suspicious fluid collection was localized with ultrasound and CT and the ove rlying skin prepped with chlorhexidine which was allowed to dry and draped in the usual sterile fashi on. Time out was performed and infiltrated with 1% Xylocaine. With US guidance, 19-gauge centesis nee dle catheter was advanced into the fluid collection. . A 0.035 wire was advanced into the fluid colle ction. After serial dilatation, a 8 [place] multipurpose pigtail catheter was placed into the collecti on. Approximately 90 cc of purulent fluid was aspirated. The drain was sutured at the skin surface an d connected to suction drainage. No immediate complication was identified. Post procedure catherogram was obtained. DLP 796 SEDATION: Dr. Nam Castro was personally responsible for the administration of moderate sedation during the procedure performed, including the use of an independent trained observer who had no other duties during the procedure. The drugs utilized were IV fentanyl and versed (see nursing log for details). The total time of supervision by the attending physician was approximately 30 minutes. FINDINGS: Limited US scan of through the liver demonstrates a fluid collection in the right hepatic l obe adjacent to the gallbladder. Collection appears complex. Post procedure scan shows pigtail drain within the collection. IMPRESSION: US and CT guided placement of 8 [place] pigtail drain into a liver abscess with 90 mL purulent fluid a spirated. PLAN: Routine tube care. Drain to remain in place for 4-6 weeks .
--- NOTE | 2024-04-10 20:32 | DVHPNRES ---
Progress Note Date Seen: Apr 10, 2024 Resident Creating Document: LUIS ARMANDO PHIPPSSABINALAWANDA RESIDENT Has the PT tested + for MRSA If YES, has PT been informed?: No Medical Necessity Reason Pt with a Central, PICC or Fol: No Subjective Review of Systems Patient was seen and examined at bedside Patient reports that he is feeling well and does not complaint of any abdominal pain. Patient denied shortness of breath, chest pain, dizziness, nausea, vomiting, diarrhea. passing gas but has not had a bowel movement Objective vital signs Vital Sign Date Time Temp Pulse Resp B/P (MAP) Pulse Ox O2 Delivery O2 Flow Rate FiO2 04/10/24 17:00 99.0 18 91 108/65 (79) 100 99.0 04/10/24 10:00 Room Air* 0 21 Total Intake and Output 04/09/24 04/09/24 04/10/24 15:00 23:00 07:00 Intake Total 1243.75 ml 1996.48 ml 975 ml Balance 1243.75 ml 1996.48 ml 975 ml medications Current Medications Medications Dose Ordered Sig/Naomi Route Start Time Stop Time Status Last Admin Dose Admin Albuterol 2.5 mg Q4HPRN PRN NEB 04/04/24 16:00 Cancel Ipratropium [place] 0.5 mg Q4HPRN PRN NEB 04/04/24 16:00 Cancel Docusate Sodium 100 mg BIDPRN PRN PO 04/04/24 16:00 Sodium Chloride 1,000 ml @ 75 mls/hr [id number] IV 04/05/24 15:15 04/09/24 12:04 75 MLS/HR Diagnostic Test (Pha) 1 strip Q6HR 04/05/24 18:00 04/10/24 17:41 1 STRIP Insulin Human Regular Q6HR SC 04/05/24 18:00 Dextrose 50 ml UD PRN IV 04/05/24 17:15 Acetaminophen/ Hydrocodone Bitart 1 tab Q6HPRN PRN PO 04/06/24 01:00 04/10/24 14:30 1 TAB Meropenem 50 ml @ 17 mls/hr Q8HR IV 04/08/24 22:00 04/10/24 14:25 17 MLS/HR Enteral Nutritional Formula 240 ml BIDWM PO 04/09/24 08:00 04/10/24 17:41 240 ML Pantoprazole Sodium 40 mg DAILY@0600 PO 04/11/24 06:00 Examination General Appearance: Alert, Oriented X3, Cooperative, No acute distress HEENT: EOMI Respiratory: Clear to auscultation, Normal air movement Cardiovascular: Regular rate, Normal S1, Normal S2 Abdominal: Normal bowel sounds Extremities: No cyanosis, No edema, Normal pulses, No tenderness/swelling Skin: No rashes, No breakdown Neuro: Normal speech and tone laboratory and microbiology Laboratory Tests 04/10/24 02:49 Test 04/10/24 02:49 Range/Units Serum Glucose 105 74-106 mg/dL Microbiology Date/Time Source Procedure Growth Status 04/05/24 00:00 Nose MRSA Screen - Final Complete 04/04/24 16:57 Blood Blood Culture - Preliminary Resulted Problem List/Assessment/Plan Problem List/Assessment/Plan #Sepsis due to liver abscess -IV fluids -IV antibiotics, on meropenem 1 g IV q.8 hour - white cell count improving -blood culture showing growth of gram positive cocci in chains, susceptibility pending #Acute hypoxic resp failure due to covid pneumonia -resolving , on room air #COVID pneumonia -on 02 #GERD -IV Protonix #?portal vein thrombosis -was on eliquis - IV heparin #hypokalemia Replaced -Monitor BMP #Normocytic anemia -CBC monitor #Multi-septated mass adjacent to the gallbladder measuring 5 by 4.6 x 3.7 cm likely liver abscess -IV antibiotics -surgery consult and GI consult - MRCP and MRI of the abdomen showed 1. Increase in size of Multi septate fluid containing mass in segment 5 of the liver with surrounding edema in the adjacent parenchyma, favored to reflect abscess. 2. Occlusion of the left portal vein. 3. Aneurysm of the infrarenal abdominal aorta measuring at least 5.3 cm AP and 4.8 cm transverse, with aortoiliac stent grafts seen to better advantage on recent CT. 4. Mild distal colonic diverticulosis. - percutaneous drainage of liver abscess, US and CT guided placement of 8 [place] pigtail drain into a liver abscess with 90 mL purulent fluid aspirated, drain to remain for 4-6 weeks. - Repeat MRI MRCP in 4 weeks to evaluate pathology #Thrombocytopenia likely due to sepsis -CBC monitor #2 small 6 mm noncalcified pulmonary nodules on the right -follow up with repeat CT #Aorta bi iliac stent in the abdominal aorta beginning just below the renal arteries and extending into the proximal iliac vessels bilaterally -seen on CT #Acute Resp alkalosis with partial comp met acidosis -likely due to early sepsis #DVT prophylaxis -on heparin drip Code status, full code Case discussion with Dr Bose Plan discussed with: Patient My Orders My Orders Orders - NIELS PHIPPS Procedure Category Date Status Time Ct Guidance For CT 04/10/24 Resulted Needle Placeme 08:[address] 04/10/24 Resulted Contrast 08:13 Ultra Guided Abcess US 04/10/24 Resulted Drainage Consistent DIET 04/10/24 Transmitted Carb(Ccho)Diabetes Lunch Dietary Evaluation Review Recommendations by RD: Protein Supplementation Comments: 1) Initiate Ensure Enlive bid. 2) Advance patient diet when medically feasible to cardiac diet. 3) Monitor PO intake and labs. Expected Outcomes/Goals: 1) Patient labs or appetite to improve 2) Patient diet to advance 3) F/u in 2-3 days Date of Service: Apr 10, 2024 Billing Provider: PARAMJIT BOSE MD Common Visit Codes: [id number] INP/OBS CARE(HIGH) NIELS PHIPPS RESIDENT Apr 10, 2024 20:32 PARAMJIT BOSE MD Apr 11, 2024 15:26
[2024-04-11] VITALS (9 sets, daily range): BP systolic 110–141; BP diastolic 49–78; PULSE 77–93; RESP 16–18; TEMP 97.4–98.4; O2SAT 96–99
[2024-04-11] MEDS ORDERED: HEPARIN DRIP/D5W 100UNITS/ML 250 ML IV SCH ×2 (05:30→18:00)
[2024-04-11 05:46] LABS: Basophils # (auto) 0 10 ^3/uL (0-0.2); Basophils % (auto) 0.1 % (0.0-2.0); Eosinophils # (auto) 0 10 ^3/uL (0-0.8); Eosinophils % (auto) 0.1 % (0.0-7.0); Hematocrit 28.2 % (41.0-53.0); Hemoglobin 9.2 g/dL (13.5-17.5); Lymphocytes # (auto) 1.8 10 ^3/uL (0.4-5.4); Lymphocytes % (auto) 25.4 % (10.0-50.0); Mean Corpuscular Hemoglobin 28.1 pg (28.0-32.0); Mean Corpuscular Hgb Conc. 32.6 g/dL (32.0-36.0); Mean Corpuscular Volume 86.4 fL (80.0-100.0); Monocytes # (auto) 0.6 10 ^3/uL (0-1.3); Monocytes % (auto) 7.9 % (0.0-12.0); Neutrophils # (auto) 4.7 10 ^3/uL (1.6-8.6); Neutrophils % (auto) 66.5 % (37.0-80.0); Platelet Count (auto) 131 10^3/uL (140-450); Red Blood Cells 3.27 10^6/uL (4.5-5.90); Red Cell Distribution Width 16.1 % (11.8-14.3)
[2024-04-11 05:58] LABS: Albumin 3.5 g/dL (3.2-4.8); Anion Gap 6 (5-15); BUN/Creatinine Ratio 9.2 (10.0-20.0); Carbon Dioxide 25 mmol/L (20-31); Chloride 105 mmol/L (98-107); INR 1.18 (0.9-1.15); Partial Thromboplastin Time 35.2 SEC (24.5-34.5); Potassium 3.7 mmol/L (3.5-5.1); Prothrombin Time 12.3 sec (9.3-11.8)
[2024-04-11 05:59] LABS: Bilirubin, Total 0.7 mg/dL (0.2-1.0); Total Protein 6.6 g/dL (5.7-8.2)
[2024-04-11] MEDS: PANTOPRAZOLE 40 MG TAB PO SCH (06:00)
[2024-04-11 06:16] LABS: Alanine Aminotransferase 62 U/L (7-40); Alkaline Phosphatase 122 U/L (46-116); Aspartate Aminotransferase 54 U/L (13-40); Blood Urea Nitrogen 6 mg/dL (9-23); Glucose 109 mg/dL (74-106); Sodium 136 mmol/L (136-145)
[2024-04-11 09:42] LABS: Hepatitis B Core Total AB Negative (Negative)
[2024-04-11] MEDS: HEPARIN DRIP/D5W 100UNITS/ML 250 ML IV SCH ×2 (10:28→17:58)
--- NOTE | 2024-04-11 10:52 | DVHPN2 ---
Progress Note Date Seen: Apr 11, 2024 Resident Creating Document: NG[facility] KEY RESIDENT Has the PT tested + for MRSA If YES, has PT been informed?: No Medical Necessity Reason Pt with a Central, PICC or Fol: No Subjective Review of Systems Saw the patient at bedside. Status post IR drainage patient on pigtail catheter pain well controlled doing well hemodynamically stable. Overall patient looks significantly better than previous visit Objective vital signs Vital Sign Date Time Temp Pulse Resp B/P (MAP) Pulse Ox O2 Delivery O2 Flow Rate FiO2 04/11/24 09:00 97.4 79 16 119/78 (92) 99 97.4 04/10/24 20:00 Room Air* 0 21 Total Intake and Output 04/10/24 04/10/24 04/11/24 15:00 23:00 07:00 Intake Total 50 ml 1741 ml 350 ml Output Total 1000 ml 425 ml Balance 50 ml 741 ml -75 ml medications Current Medications Medications Dose Ordered Sig/Naomi Route Start Time Stop Time Status Last Admin Dose Admin Albuterol 2.5 mg Q4HPRN PRN NEB 04/04/24 16:00 Cancel Ipratropium [place] 0.5 mg Q4HPRN PRN NEB 04/04/24 16:00 Cancel Docusate Sodium 100 mg BIDPRN PRN PO 04/04/24 16:00 Diagnostic Test (Pha) 1 strip Q6HR 04/05/24 18:00 04/11/24 06:00 1 STRIP Insulin Human Regular Q6HR SC 04/05/24 18:00 Dextrose 50 ml UD PRN IV 04/05/24 17:15 Acetaminophen/ Hydrocodone Bitart 1 tab Q6HPRN PRN PO 04/06/24 01:00 04/11/24 05:31 1 TAB Meropenem 50 ml @ 17 mls/hr Q8HR IV 04/08/24 22:00 04/11/24 06:00 17 MLS/HR Enteral Nutritional Formula 240 ml BIDWM PO 04/09/24 08:00 04/11/24 08:00 240 ML Pantoprazole Sodium 40 mg DAILY@0600 PO 04/11/24 06:00 04/11/24 06:00 40 MG Heparin Sodium/ Dextrose 250 ml @ 12 mls/hr [id number] IV 04/11/24 06:30 04/11/24 10:28 12 MLS/HR Examination GENERAL: Normal, Comfortable, not in acute distress HEENT:Normal, NECK:Normal, LUNGS:Normal, CVS:Normal, ABDOMEN:Normal (normal liver lower border. no focal tenderness noted, BS +), clear dressing noted, pigtail catheter with drainage present at gravity with serosanguineous 90 cc of fluid. MSK:Normal, SKIN:Normal, NEURO:Normal, :Normal laboratory and microbiology Laboratory Tests 04/11/24 05:21 Test 04/11/24 05:21 Range/Units Serum Glucose 109 H 74-106 mg/dL Microbiology Date/Time Source Procedure Growth Status 04/05/24 00:00 Nose MRSA Screen - Final Complete 04/04/24 16:57 Blood Blood Culture - Preliminary Resulted Labs and/or images reviewed: Labs reviewed by me, Image(s) reviewed by me Problem List/Assessment/Plan Problem List/Assessment/Plan Reasons for consultation: LIVER MASS POSSIBLE ABSCESS Hospitalization Summary: A 73-year-old male with a history of aortic aneurysm surgery and hyperlipidemia presented with severe abdominal pain, nausea, vomiting, and significant weight loss. He was previously hospitalized for similar pain and a possible liver blood clot, for which he was prescribed Eliquis. Recent imaging revealed a liver mass near the gallbladder fossa, raising concerns about a possible abscess. Was waiting for COVID test to be negative for MRI MRCP. IR guided abscess drainage with 90 cc of purulent fluid, pigtail catheter in place draining serosanguineous fluid today about 90 cc more. GI Assessment: # Multi-septated mass adjacent to the gallbladder measuring 5.0 x 4.6 x 3.7 cm likely liver abscess # Expanding liver abscess noted in MRCP s/p US guided aspiration and pigtail catheter drainage by IR on 04/10/2024 # Possibility of a septated gallbladder mass is also a differential. # sepsis secondary to pyogenic liver abscess on IV Zosyn # questionable portal vein thrombosis # GERD on PPi # Occlusion of the left portal vein # Mild distal colonic diverticulosis - # secondary hypercoagulable state due to IV heparin drip # moderate thrombocytopenia on heparin # transaminitis with elevated alkaline phosphatase, trending down # acute hypoxic respiratory failure secondary due to COVID pneumonia #Aneurysm of the infrarenal abdominal aorta measuring at least 5.3 cm AP and 4.8 cm transverse, with aortoiliac stent grafts seen to better advantage on recent CT #Gram Positive Cocci (GPC) +ve x2 in blood culture. GI Plan: # Medications: pantoprazole 40 mg daily IV>> changed to oral daily. cautious use of heparin/LMW heparin as trending down platelets. Consider ID consult for bacteremia and liver abscess for appropriate antibiotics and duration based on susceptibility. # Labs: Check CMP to trend AST/ALT/ALK phos, follow hepatitis panel, AFP, CA 125, CEA to rule out hepatic/pancreatic/colonic malignancy. Follow blood culture , growing GPC. Follow abscess aspirate culture. # Procedure: Interval cholecystectomy down the line, not needed in-hospital further procedure. Continue the pigtail catheter in-situ for drainage management with close I&O monitoring. # Imaging: interval MRI MRCP in 4 weeks outpatient [place] to recheck the pathology. # Others: please avoid NSAIDs, alcohol, spicy, highly acidic and caustic diets. Please maintain an upright posture 3 hours after the meal. # please schedule follow up with GI as outpatient with Dr. Jennifer Albert. Thank you so much for the opportunity to consult on your patient. GI team will follow up. Please schedule outpatient follow up in 2 weeks. In case of any questions or concerns please feel free to reach out. Case and action plan discussed with Dr. Lorraine Albert. Complex care planning needed total 45 minutes of detailed discussion. The patient and caregiver team agreed to the plan. Plan discussed with: Patient, Other My Orders My Orders Orders - NGOC KEY RESIDENT Procedure Category Date Status Time Pantoprazole Tablet PHA 04/11/24 In Process (Protonix Tablet) 06:00 Dietary Evaluation Review Recommendations by RD: Protein Supplementation Comments: 1) Initiate Ensure Enlive bid. 2) Advance patient diet when medically feasible to cardiac diet. 3) Monitor PO intake and labs. Expected Outcomes/Goals: 1) Patient labs or appetite to improve 2) Patient diet to advance 3) F/u in 2-3 days NGOC KEY RESIDENT Apr 11, 2024 10:52
[2024-04-11 17:10] LABS: INR 1.13 (0.9-1.15); Prothrombin Time 11.8 sec (9.3-11.8)
--- NOTE | 2024-04-11 22:27 | DVHPNRES ---
Progress Note Date Seen: Apr 11, 2024 Resident Creating Document: LUIS ARMANDO PHIPPSSABINALAWANDA RESIDENT Has the PT tested + for MRSA If YES, has PT been informed?: No Medical Necessity Reason Pt with a Central, PICC or Fol: No Subjective Review of Systems Patient was seen and examined at bedside Patient reports that he is feeling well and does not complaint of any abdominal pain. Patient denied shortness of breath, chest pain, dizziness, nausea, vomiting, diarrhea. passing gas Objective vital signs Vital Sign Date Time Temp Pulse Resp B/P (MAP) Pulse Ox O2 Delivery O2 Flow Rate FiO2 04/11/24 21:00 98.2 83 18 112/74 (87) 99 98.2 04/11/24 10:00 Room Air* 0 21 Total Intake and Output 04/10/24 04/10/24 04/11/24 15:00 23:00 07:00 Intake Total 50 ml 1741 ml 350 ml Output Total 1000 ml 425 ml Balance 50 ml 741 ml -75 ml medications Current Medications Medications Dose Ordered Sig/Naomi Route Start Time Stop Time Status Last Admin Dose Admin Albuterol 2.5 mg Q4HPRN PRN NEB 04/04/24 16:00 Cancel Ipratropium [place] 0.5 mg Q4HPRN PRN NEB 04/04/24 16:00 Cancel Docusate Sodium 100 mg BIDPRN PRN PO 04/04/24 16:00 Diagnostic Test (Pha) 1 strip Q6HR 04/05/24 18:00 04/11/24 17:59 1 STRIP Insulin Human Regular Q6HR SC 04/05/24 18:00 Dextrose 50 ml UD PRN IV 04/05/24 17:15 Acetaminophen/ Hydrocodone Bitart 1 tab Q6HPRN PRN PO 04/06/24 01:00 04/11/24 17:50 1 TAB Meropenem 50 ml @ 17 mls/hr Q8HR IV 04/08/24 22:00 04/11/24 21:26 17 MLS/HR Enteral Nutritional Formula 240 ml BIDWM PO 04/09/24 08:00 04/11/24 18:00 240 ML Pantoprazole Sodium 40 mg DAILY@0600 PO 04/11/24 06:00 04/11/24 06:00 40 MG Heparin Sodium/ Dextrose 250 ml @ 14 mls/hr [id number] IV 04/11/24 18:00 04/11/24 17:58 14 MLS/HR Examination General Appearance: Alert, Oriented X3, Cooperative, No acute distress HEENT: EOMI Respiratory: Clear to auscultation, Normal air movement Cardiovascular: Regular rate, Normal S1, Normal S2 Abdominal: Normal bowel sounds Extremities: No cyanosis, No edema, Normal pulses, No tenderness/swelling Skin: No rashes, No breakdown Neuro: Normal speech and tone laboratory and microbiology Laboratory Tests 04/11/24 05:21 Test 04/11/24 05:21 Range/Units Serum Glucose 109 H 74-106 mg/dL Microbiology Date/Time Source Procedure Growth Status 04/10/24 11:20 Aspirate Gram Stain - Final Resulted 04/10/24 11:20 Aspirate Body Fluid Culture - Preliminary Resulted 04/05/24 00:00 Nose MRSA Screen - Final Complete 04/04/24 16:57 Blood Blood Culture - Preliminary Resulted Problem List/Assessment/Plan Problem List/Assessment/Plan #Sepsis due to liver abscess -IV fluids -IV antibiotics, on meropenem 1 g IV q.8 hour - white cell count improving -blood culture showing growth of gram positive cocci in chains, susceptibility pending - #Acute hypoxic resp failure due to covid pneumonia -resolving , on room air #COVID pneumonia -on 02 #GERD -protonix #?portal vein thrombosis -was on eliquis - IV heparin #hypokalemia Replaced -Monitor BMP #Normocytic anemia -CBC monitor #Multi-septated mass adjacent to the gallbladder measuring 5 by 4.6 x 3.7 cm likely liver abscess -IV antibiotics -surgery consult and GI consult - MRCP and MRI of the abdomen showed 1. Increase in size of Multi septate fluid containing mass in segment 5 of the liver with surrounding edema in the adjacent parenchyma, favored to reflect abscess. 2. Occlusion of the left portal vein. 3. Aneurysm of the infrarenal abdominal aorta measuring at least 5.3 cm AP and 4.8 cm transverse, with aortoiliac stent grafts seen to better advantage on recent CT. 4. Mild distal colonic diverticulosis. - percutaneous drainage of liver abscess, US and CT guided placement of 8 [place] pigtail drain into a liver abscess with 90 mL purulent fluid aspirated, drain to remain for 4-6 weeks. - Repeat MRI MRCP in 4 weeks to evaluate pathology #Thrombocytopenia likely due to sepsis -CBC monitor #2 small 6 mm noncalcified pulmonary nodules on the right -follow up with repeat CT #Aorta bi iliac stent in the abdominal aorta beginning just below the renal arteries and extending into the proximal iliac vessels bilaterally -seen on CT #DVT prophylaxis -on heparin drip Code status, full code Case discussion with Dr Bose Plan discussed with: Patient My Orders My Orders Orders - NIELS PHIPPS RESIDENT Procedure Category Date Status Time Platelet Monitoring [facility] 04/11/24 In Process 05:14 Vte Protocol Initiated [facility] 04/11/24 In Process 05:14 Heparin Per [facility] 04/11/24 In Process Standardized Proce 05:14 Discontinue All Im [facility] 04/11/24 In Process Injections 05:14 Heparin Drip/D5w [facility] 04/11/24 In Process 100units/Ml 18:00 PTPTT LAB 04/12/24 Verified 00:00 Dietary Evaluation Review Recommendations by RD: Protein Supplementation Comments: 1) Initiate Ensure Enlive bid. 2) Advance patient diet when medically feasible to cardiac diet. 3) Monitor PO intake and labs. Expected Outcomes/Goals: 1) Patient labs or appetite to improve 2) Patient diet to advance 3) F/u in 2-3 days Date of Service: Apr 11, 2024 Billing Provider: PARAMJIT BOSE MD Common Visit Codes: [id number] INP/OBS CARE(HIGH) NIELS PHIPPS RESIDENT Apr 11, 2024 22:27 PARAMJIT BOSE MD Apr 12, 2024 15:02
[2024-04-12] VITALS (9 sets, daily range): BP systolic 117–124; BP diastolic 75–82; PULSE 70–92; RESP 18–20; TEMP 97.7–98.1; O2SAT 97–100
[2024-04-12 01:02] LABS: INR 1.14 (0.9-1.15); Partial Thromboplastin Time 69.1 SEC (24.5-34.5); Prothrombin Time 11.9 sec (9.3-11.8)
[2024-04-12 07:00] LABS: INR 1.12 (0.9-1.15); Prothrombin Time 11.7 sec (9.3-11.8)
[2024-04-12 07:10] LABS: Partial Thromboplastin Time 72.2 SEC (24.5-34.5)
[2024-04-12] MEDS: DOCUSATE SOD 100 MG CAP PO PRN (10:58)
[2024-04-12 11:29] LABS: INR 1.15 (0.9-1.15); Partial Thromboplastin Time 68.2 SEC (24.5-34.5)
--- NOTE | 2024-04-12 15:36 | DVHPN2 ---
Progress Note Date Seen: Apr 12, 2024 Resident Creating Document: NGOC KEY RESIDENT Has the PT tested + for MRSA If YES, has PT been informed?: No Medical Necessity Reason Pt with a Central, PICC or Fol: No Subjective Review of Systems Saw the patient at bedside. Status post IR drainage patient on pigtail catheter pain well controlled doing well hemodynamically stable. Overall patient looks significantly better than previous visit Patient reports: Feels better Objective vital signs Vital Sign Date Time Temp Pulse Resp B/P (MAP) Pulse Ox O2 Delivery O2 Flow Rate FiO2 04/12/24 13:00 97.8 92 20 120/81 (94) 97 97.8 04/12/24 10:00 Room Air 04/12/24 10:00 0 21 Total Intake and Output 04/11/24 04/11/24 04/12/24 15:00 23:00 07:00 Intake Total 50 ml 1020 ml 250 ml Output Total 600 ml Balance 50 ml 1020 ml -350 ml medications Current Medications Medications Dose Ordered Sig/Naomi Route Start Time Stop Time Status Last Admin Dose Admin Albuterol 2.5 mg Q4HPRN PRN NEB 04/04/24 16:00 Cancel Ipratropium [place] 0.5 mg Q4HPRN PRN NEB 04/04/24 16:00 Cancel Docusate Sodium 100 mg BIDPRN PRN PO 04/04/24 16:00 04/12/24 10:58 100 MG Diagnostic Test (Pha) 1 strip Q6HR 04/05/24 18:00 04/12/24 12:07 1 STRIP Insulin Human Regular Q6HR SC 04/05/24 18:00 Dextrose 50 ml UD PRN IV 04/05/24 17:15 Acetaminophen/ Hydrocodone Bitart 1 tab Q6HPRN PRN PO 04/06/24 01:00 04/12/24 00:28 1 TAB Meropenem 50 ml @ 17 mls/hr Q8HR IV 04/08/24 22:00 04/12/24 13:41 17 MLS/HR Enteral Nutritional Formula 240 ml BIDWM PO 04/09/24 08:00 04/12/24 08:00 240 ML Pantoprazole Sodium 40 mg DAILY@0600 PO 04/11/24 06:00 04/12/24 05:52 40 MG Heparin Sodium/ Dextrose 250 ml @ 14 mls/hr [id number] IV 04/11/24 18:00 04/12/24 07:55 14 MLS/HR Examination GENERAL: Normal, Comfortable, not in acute distress HEENT:Normal, NECK:Normal, LUNGS:Normal, CVS:Normal, ABDOMEN:Normal (normal liver lower border. no focal tenderness noted, BS +), clear dressing noted, pigtail catheter with drainage present at gravity with serosanguineous 60 cc of fluid. MSK:Normal, SKIN:Normal, NEURO:Normal, :Normal laboratory and microbiology Laboratory Tests 04/11/24 05:21 Test 04/11/24 05:21 Range/Units Serum Glucose 109 H 74-106 mg/dL Microbiology Date/Time Source Procedure Growth Status 04/10/24 11:20 Aspirate Gram Stain - Final Resulted 04/10/24 11:20 Aspirate Body Fluid Culture - Preliminary Resulted 04/05/24 00:00 Nose MRSA Screen - Final Complete 04/04/24 16:57 Blood Blood Culture - Preliminary Resulted Labs and/or images reviewed: Labs reviewed by me, Image(s) reviewed by me Problem List/Assessment/Plan Problem List/Assessment/Plan Reasons for consultation: LIVER MASS POSSIBLE ABSCESS Hospitalization Summary: A 73-year-old male with a history of aortic aneurysm surgery and hyperlipidemia presented with severe abdominal pain, nausea, vomiting, and significant weight loss. He was previously hospitalized for similar pain and a possible liver blood clot, for which he was prescribed Eliquis. Recent imaging revealed a liver mass near the gallbladder fossa, raising concerns about a possible abscess. Was waiting for COVID test to be negative for MRI MRCP. IR guided abscess drainage pigtail catheter in place draining serosanguineous fluid. GI Assessment: # Multi-septated mass adjacent to the gallbladder measuring 5.0 x 4.6 x 3.7 cm likely liver abscess # Expanding liver abscess noted in MRCP s/p US guided aspiration and pigtail catheter drainage by IR on 04/10/2024 # Possibility of a septated gallbladder mass is also a differential. # sepsis secondary to pyogenic liver abscess on IV Zosyn # questionable portal vein thrombosis # GERD on PPi # Occlusion of the left portal vein # Mild distal colonic diverticulosis #Ruled out common GI malignancy with -ve AFP, CA 125, CEA - # secondary hypercoagulable state due to IV heparin drip # moderate thrombocytopenia on heparin # transaminitis with elevated alkaline phosphatase, trending down # acute hypoxic respiratory failure secondary due to COVID pneumonia #Aneurysm of the infrarenal abdominal aorta measuring at least 5.3 cm AP and 4.8 cm transverse, with aortoiliac stent grafts seen to better advantage on recent CT #Gram Positive Cocci (GPC) +ve x2 in blood culture. GI Plan: # Medications: pantoprazole 40 mg oral daily 6 weeks short course for now. Appropriate antibiotics and duration based on GPC susceptibility as per ID. # Labs: Follow hepatitis panel. Trend CMP. # Procedure: Interval cholecystectomy down the line, not needed in-hospital further procedure. Continue the pigtail catheter in-situ for drainage management with close I&O monitoring. # Imaging: interval MRI MRCP in 4 weeks outpatient [place] to recheck the pathology. # Others: please avoid NSAIDs, alcohol, spicy, highly acidic and caustic diets. Please maintain an upright posture 3 hours after the meal. # please schedule follow up with GI as outpatient with Dr. Jennifer Albert. Thank you so much for the opportunity to consult on your patient. GI team signing off. Please schedule outpatient follow up in 2 weeks. In case of any questions or concerns please feel free to reach out. Case and action plan discussed with Dr. Lorraine Albert. Complex care planning needed total 45 minutes of detailed discussion. The patient and caregiver team agreed to the plan. Plan discussed with: Patient, Other Dietary Evaluation Review Recommendations by RD: Protein Supplementation Comments: 1) Initiate Ensure Enlive bid. 2) Advance patient diet when medically feasible to cardiac diet. 3) Monitor PO intake and labs. Expected Outcomes/Goals: 1) Patient labs or appetite to improve 2) Patient diet to advance 3) F/u in 2-3 days NGOC KEY RESIDENT Apr 12, 2024 15:36
--- NOTE | 2024-04-12 19:34 | DVHPNRES ---
Progress Note Date Seen: Apr 12, 2024 Resident Creating Document: NIELS PHIPPS RESIDENT Has the PT tested + for MRSA If YES, has PT been informed?: No Medical Necessity Reason Pt with a Central, PICC or Fol: No Subjective Review of Systems Patient was seen and examined at bedside Patient reports that he is feeling well and does not complaint of any abdominal pain. Patient denied shortness of breath, chest pain, dizziness, nausea, vomiting, diarrhea. passing gas Objective vital signs Vital Sign Date Time Temp Pulse Resp B/P (MAP) Pulse Ox O2 Delivery O2 Flow Rate FiO2 04/12/24 17:00 97.9 91 18 118/78 (91) 99 97.9 04/12/24 10:00 Room Air 04/12/24 10:00 0 21 Total Intake and Output 04/11/24 04/11/24 04/12/24 15:00 23:00 07:00 Intake Total 50 ml 1020 ml 250 ml Output Total 600 ml Balance 50 ml 1020 ml -350 ml medications Current Medications Medications Dose Ordered Sig/Naomi Route Start Time Stop Time Status Last Admin Dose Admin Albuterol 2.5 mg Q4HPRN PRN NEB 04/04/24 16:00 Cancel Ipratropium [place] 0.5 mg Q4HPRN PRN NEB 04/04/24 16:00 Cancel Docusate Sodium 100 mg BIDPRN PRN PO 04/04/24 16:00 04/12/24 10:58 100 MG Acetaminophen/ Hydrocodone Bitart 1 tab Q6HPRN PRN PO 04/06/24 01:00 04/12/24 18:31 1 TAB Meropenem 50 ml @ 17 mls/hr Q8HR IV 04/08/24 22:00 04/12/24 13:41 17 MLS/HR Enteral Nutritional Formula 240 ml BIDWM PO 04/09/24 08:00 04/12/24 18:22 240 ML Pantoprazole Sodium 40 mg DAILY@0600 PO 04/11/24 06:00 04/12/24 05:52 40 MG Apixaban 5 mg BID PO 04/12/24 22:00 Examination General Appearance: Alert, Oriented X3, Cooperative, No acute distress HEENT: EOMI Respiratory: Clear to auscultation, Normal air movement Cardiovascular: Regular rate, Normal S1, Normal S2 Abdominal: Normal bowel sounds Extremities: No cyanosis, No edema, Normal pulses, No tenderness/swelling Skin: No rashes, No breakdown Neuro: Normal speech and tone laboratory and microbiology Laboratory Tests 04/11/24 05:21 Test 04/11/24 05:21 Range/Units Serum Glucose 109 H 74-106 mg/dL Microbiology Date/Time Source Procedure Growth Status 04/10/24 11:20 Aspirate Gram Stain - Final Resulted 04/10/24 11:20 Aspirate Body Fluid Culture - Preliminary Resulted 04/05/24 00:00 Nose MRSA Screen - Final Complete 04/04/24 16:57 Blood Blood Culture - Preliminary Resulted Problem List/Assessment/Plan Problem List/Assessment/Plan #Sepsis due to liver abscess -IV fluids -IV antibiotics, on meropenem 1 g IV q.8 hour - white cell count improving -blood culture showing growth of gram positive cocci in chains, susceptibility pending - #Acute hypoxic resp failure due to covid pneumonia -resolving , on room air #COVID pneumonia -on 02 #GERD -protonix #?portal vein thrombosis -Heparin drip stopped - started on eliquis #hypokalemia Replaced -Monitor BMP #Normocytic anemia -CBC monitor #Multi-septated mass adjacent to the gallbladder measuring 5 by 4.6 x 3.7 cm likely liver abscess -IV antibiotics -surgery consult and GI consult - MRCP and MRI of the abdomen showed 1. Increase in size of Multi septate fluid containing mass in segment 5 of the liver with surrounding edema in the adjacent parenchyma, favored to reflect abscess. 2. Occlusion of the left portal vein. 3. Aneurysm of the infrarenal abdominal aorta measuring at least 5.3 cm AP and 4.8 cm transverse, with aortoiliac stent grafts seen to better advantage on recent CT. 4. Mild distal colonic diverticulosis. - percutaneous drainage of liver abscess, US and CT guided placement of 8 Portuguese pigtail drain into a liver abscess with 90 mL purulent fluid aspirated, drain to remain for 4-6 weeks. - Repeat MRI MRCP in 4 weeks to evaluate pathology #Thrombocytopenia likely due to sepsis -CBC monitor #2 small 6 mm noncalcified pulmonary nodules on the right -follow up with repeat CT #Aorta bi iliac stent in the abdominal aorta beginning just below the renal arteries and extending into the proximal iliac vessels bilaterally -seen on CT #DVT prophylaxis - enoxaparin 40mg qd Code status, full code Case discussion with Dr Bose Plan discussed with: Patient My Orders My Orders Orders - NIELS PHIPPS Procedure Category Date Status Time Heparin Per Pharmacy [facility] 04/12/24 In Process Protocol 07:56 Hemoglobin & LAB 04/13/24 Verified Hematocrit 05:00 Apixaban (Eliquis) PHA 04/12/24 In Process 22:00 Dietary Evaluation Review Recommendations by RD: Protein Supplementation Comments: 1) Initiate Ensure Enlive bid. 2) Advance patient diet when medically feasible to cardiac diet. 3) Monitor PO intake and labs. Expected Outcomes/Goals: 1) Patient labs or appetite to improve 2) Patient diet to advance 3) F/u in 2-3 days Date of Service: Apr 12, 2024 Billing Provider: PARAMJIT BOSE MD Common Visit Codes: [id number] INP/OBS CARE(HIGH) NIELS PHIPPS RESIDENT Apr 12, 2024 19:34 PARAMJIT BOSE MD Apr 12, 2024 21:22
[2024-04-12] MEDS: APIXABAN 5 MG TAB PO SCH (21:07)
[2024-04-13] VITALS (9 sets, daily range): BP systolic 102–131; BP diastolic 72–84; PULSE 62–86; RESP 17–20; TEMP 97.3–98.9; O2SAT 96–100
[2024-04-13 05:01] LABS: Basophils # (auto) 0 10 ^3/uL (0-0.2); Basophils % (auto) 0.2 % (0.0-2.0); Eosinophils # (auto) 0 10 ^3/uL (0-0.8); Eosinophils % (auto) 0.4 % (0.0-7.0); Hematocrit 29.6 % (41.0-53.0); Hemoglobin 9.9 g/dL (13.5-17.5); Lymphocytes # (auto) 2.1 10 ^3/uL (0.4-5.4); Lymphocytes % (auto) 27.8 % (10.0-50.0); Mean Corpuscular Hemoglobin 28.2 pg (28.0-32.0); Mean Corpuscular Hgb Conc. 33.3 g/dL (32.0-36.0); Mean Corpuscular Volume 84.7 fL (80.0-100.0); Monocytes # (auto) 0.6 10 ^3/uL (0-1.3); Monocytes % (auto) 7.6 % (0.0-12.0); Neutrophils # (auto) 4.8 10 ^3/uL (1.6-8.6); Nucleated Red Blood Cells % 0.1 %; Platelet Count (auto) 274 10^3/uL (140-450); Red Cell Distribution Width 15.9 % (11.8-14.3); White Blood Cell 7.4 10^3/uL (4.4-10.8)
[2024-04-13 05:28] LABS: Anion Gap 8 (5-15); Calcium 9.7 mg/dL (8.7-10.4); Carbon Dioxide 24 mmol/L (20-31); Chloride 103 mmol/L (98-107); Potassium 4.1 mmol/L (3.5-5.1)
[2024-04-13 05:34] LABS: BUN/Creatinine Ratio 9.6 (10.0-20.0); Glucose 98 mg/dL (74-106)
[2024-04-13 05:37] LABS: Blood Urea Nitrogen 7 mg/dL (9-23); Sodium 135 mmol/L (136-145)
[2024-04-13] MEDS ORDERED: VANCOMYCIN 750MG KIT 100 ML IV SCH (12:00)
--- NOTE | 2024-04-13 12:43 | DVHPNRES ---
Progress Note Date Seen: Apr 13, 2024 Resident Creating Document: LUIS ARMANDO PHIPPSSABINALAWANDA RESIDENT Has the PT tested + for MRSA If YES, has PT been informed?: No Medical Necessity Reason Pt with a Central, PICC or Fol: No Subjective Review of Systems Patient was seen and examined at bedside Patient reports that he is feeling well and does not complaint of any abdominal pain. Patient denied shortness of breath, chest pain, dizziness, nausea, vomiting, diarrhea. passing gas Drain in the right upper quadrant with about 200ml of serosanginous fluid Objective vital signs Vital Sign Date Time Temp Pulse Resp B/P (MAP) Pulse Ox O2 Delivery O2 Flow Rate FiO2 04/13/24 09:00 97.9 62 18 102/72 (82) 100 97.9 04/12/24 20:00 Room Air* 0 21 Total Intake and Output 04/12/24 04/12/24 04/13/24 15:00 23:00 07:00 Intake Total 450 ml 1020 ml 700 ml Output Total 0 ml 900 ml Balance 450 ml 1020 ml -200 ml medications Current Medications Medications Dose Ordered Sig/Naomi Route Start Time Stop Time Status Last Admin Dose Admin Albuterol 2.5 mg Q4HPRN PRN NEB 04/04/24 16:00 Cancel Ipratropium [place] 0.5 mg Q4HPRN PRN NEB 04/04/24 16:00 Cancel Docusate Sodium 100 mg BIDPRN PRN PO 04/04/24 16:00 04/12/24 10:58 100 MG Acetaminophen/ Hydrocodone Bitart 1 tab Q6HPRN PRN PO 04/06/24 01:00 04/13/24 05:21 1 TAB Meropenem 50 ml @ 17 mls/hr Q8HR IV 04/08/24 22:00 04/13/24 05:05 17 MLS/HR Enteral Nutritional Formula 240 ml BIDWM PO 04/09/24 08:00 04/13/24 08:00 240 ML Pantoprazole Sodium 40 mg DAILY@0600 PO 04/11/24 06:00 04/13/24 05:05 40 MG Apixaban 5 mg BID PO 04/12/24 22:00 04/13/24 10:50 5 MG Vancomycin HCl 0 ml @ 0 mls/hr UD IV 04/13/24 11:45 Vancomycin HCl 100 ml @ 100 mls/hr Q12H IV 04/13/24 12:00 Examination General Appearance: Alert, Oriented X3, Cooperative, No acute distress HEENT: EOMI Respiratory: Clear to auscultation, Normal air movement Cardiovascular: Regular rate, Normal S1, Normal S2 Abdominal: Normal bowel sounds Extremities: No cyanosis, No edema, Normal pulses, No tenderness/swelling Skin: No rashes, No breakdown Neuro: Normal speech and tone laboratory and microbiology Laboratory Tests 04/13/24 04:05 Test 04/13/24 04:05 Range/Units Serum Glucose 98 74-106 mg/dL Microbiology Date/Time Source Procedure Growth Status 04/10/24 11:20 Aspirate Gram Stain - Final Resulted 04/10/24 11:20 Aspirate Body Fluid Culture - Preliminary Resulted 04/05/24 00:00 Nose MRSA Screen - Final Complete 04/04/24 16:57 Blood Blood Culture - Preliminary Resulted Problem List/Assessment/Plan Problem List/Assessment/Plan #Sepsis due to liver abscess -IV fluids -IV antibiotics, on meropenem 1 g IV q.8 hour - white cell count improving -blood culture showing growth of gram positive cocci in chains, susceptibility pending - repeat blood cultures sent - echo pending #Acute hypoxic resp failure due to covid pneumonia -resolving , on room air #COVID pneumonia -on 02 #GERD -protonix #?portal vein thrombosis -Heparin drip stopped - started on eliquis #hypokalemia Replaced -Monitor BMP #Normocytic anemia -CBC monitor #Multi-septated mass adjacent to the gallbladder measuring 5 by 4.6 x 3.7 cm likely liver abscess -IV antibiotics -surgery consult and GI consult - MRCP and MRI of the abdomen showed 1. Increase in size of Multi septate fluid containing mass in segment 5 of the liver with surrounding edema in the adjacent parenchyma, favored to reflect abscess. 2. Occlusion of the left portal vein. 3. Aneurysm of the infrarenal abdominal aorta measuring at least 5.3 cm AP and 4.8 cm transverse, with aortoiliac stent grafts seen to better advantage on recent CT. 4. Mild distal colonic diverticulosis. - percutaneous drainage of liver abscess, US and CT guided placement of 8 Greek pigtail drain into a liver abscess with 90 mL purulent fluid aspirated, drain to remain for 4-6 weeks. - Repeat MRI MRCP in 4 weeks to evaluate pathology - initial blood culture preliminary reported growth of gram postitive cocci in chains, repeat blood cultures sent - ECHO pending - patient is on meropenam #Thrombocytopenia likely due to sepsis -CBC monitor #2 small 6 mm noncalcified pulmonary nodules on the right -follow up with repeat CT #Aorta bi iliac stent in the abdominal aorta beginning just below the renal arteries and extending into the proximal iliac vessels bilaterally -seen on CT #DVT prophylaxis - enoxaparin 40mg qd Patient's PCP: Siddhartha Villegas Code status, full code Case discussion with Dr Rick Plan discussed with: Patient My Orders My Orders Orders - NIELS PHIPPS Procedure Category Date Status Time Apixaban (Eliquis) PHA 04/12/24 In Process 22:00 Blood Culture PAOLA 04/13/24 Uncollected 11:36 Vancomycin Per PHA 04/13/24 In Process Pharmacy 11:45 Echo 2d Mode Cardiac US 04/13/24 Logged DOP 11:36 Vancomycin 750mg Kit PHA 04/13/24 In Process (Vancomycin Hcl) 12:00 Complete Blood Count LAB 04/14/24 Verified 04:00 Creatinine LAB 04/14/24 Verified 04:00 Vancomycin,Trough LAB 04/14/24 Verified 23:00 Vancomycin Per [facility] 04/13/24 In Process Pharmacy [facility] 12:09 Dietary Evaluation Review Recommendations by RD: Protein Supplementation Comments: 1) Initiate Ensure Enlive bid. 2) Advance patient diet when medically feasible to cardiac diet. 3) Monitor PO intake and labs. Expected Outcomes/Goals: 1) Patient labs or appetite to improve 2) Patient diet to advance 3) F/u in 2-3 days Date of Service: Apr 13, 2024 Billing Provider: HUSSEIN RICK MD Common Visit Codes: [id number] INP/OBS CARE(HIGH) NIELS PHIPPS RESIDENT Apr 13, 2024 12:43 HUSSEIN RICK MD Apr 13, 2024 22:37
--- NOTE | 2024-04-13 15:37 | DVHPN2 ---
Progress Note - Dictate Date Seen: Apr 13, 2024 Has the PT tested + for MRSA If YES, has PT been informed?: No Medical Necessity Reason Pt with a Central, PICC or Fol: No Subjective No new complaints Tolerating diet Leukocytosis is improving Body fluid culture grew beta Streptococcus group C Gram-positive cocci Total 200ml serosangiuonous blood tinged fluid in bag;probably additional 50 ml since yesterday vital signs Vital Sign Date Time Temp Pulse Resp B/P (MAP) Pulse Ox O2 Delivery O2 Flow Rate FiO2 04/13/24 13:00 97.7 82 18 106/84 (91) 97 97.7 04/12/24 20:00 Room Air* 0 21 Total Intake and Output 04/12/24 04/12/24 04/13/24 15:00 23:00 07:00 Intake Total 450 ml 1020 ml 700 ml Output Total 0 ml 900 ml Balance 450 ml 1020 ml -200 ml medications Current Medications Medications Dose Ordered Sig/Naomi Route Start Time Stop Time Status Last Admin Dose Admin Albuterol 2.5 mg Q4HPRN PRN NEB 04/04/24 16:00 Cancel Ipratropium [place] 0.5 mg Q4HPRN PRN NEB 04/04/24 16:00 Cancel Docusate Sodium 100 mg BIDPRN PRN PO 04/04/24 16:00 04/12/24 10:58 100 MG Acetaminophen/ Hydrocodone Bitart 1 tab Q6HPRN PRN PO 04/06/24 01:00 04/13/24 05:21 1 TAB Meropenem 50 ml @ 17 mls/hr Q8HR IV 04/08/24 22:00 04/13/24 14:00 17 MLS/HR Enteral Nutritional Formula 240 ml BIDWM PO 04/09/24 08:00 04/13/24 08:00 240 ML Pantoprazole Sodium 40 mg DAILY@0600 PO 04/11/24 06:00 04/13/24 05:05 40 MG Apixaban 5 mg BID PO 04/12/24 22:00 04/13/24 10:50 5 MG Vancomycin HCl 0 ml @ 0 mls/hr UD IV 04/13/24 11:45 objective Well-developed well-nourished male no acute distress Pupils equal and react to light, extraocular movements intact Lungs clear, CVS S1-S2 regular rate rhythm Abdomen is soft nontender, pigtail catheter drain insight, there was no right upper quadrant tenderness Extremities without clubbing cyanosis or edema Neuro he is alert oriented x3; no focal deficit laboratory and microbiology Laboratory Tests 04/13/24 04:05 Test 04/13/24 04:05 Range/Units Serum Glucose 98 74-106 mg/dL Problems(with codes): (1) Abnormal finding on GI tract imaging (2) Liver abscess (3) Leukocytosis (4) Beta hemolytic Streptococcus culture positive Prognosis Plan I requested the nurse to record the pigtail catheter drainage on a daily basis Streptococcus C species which is responsive to ampicillin and penicillin Patient can likely be able to be discharged on oral ampicillin or Augmentin, currently on IV meropenem Outpatient follow up with IR in four weeks for removal of pigtail catheter after repeating CT abdomen Outpatient follow up with GI Services for ongoing observation management and elective colonoscopy Dietary Evaluation Review Recommendations by RD: Protein Supplementation Comments: 1) Initiate Ensure Enlive bid. 2) Advance patient diet when medically feasible to cardiac diet. 3) Monitor PO intake and labs. Expected Outcomes/Goals: 1) Patient labs or appetite to improve 2) Patient diet to advance 3) F/u in 2-3 days Plan discussed with: Patient, Other (Nurse) JUDAH BRUNER MD Apr 13, 2024 15:37
[2024-04-13] MEDS: VANCOMYCIN PER PHARMACY 0 MG IV SCH (18:11)
--- NOTE | 2024-04-13 21:21 | DVHSR ---
APPROVED REPORT EXAM: Two-dimensional and M-mode echocardiogram with Doppler and color Doppler. Blood Pressure: 102/72 mmHg INDICATION blood cultures positive, ? endocarditis RISK FACTORS Height: 5'4, Weight: 145 DIMENSIONS LVDd3.2 (3.8-5.7cm)LA (2D)2.6 (1.9-4.0cm)Aortic Root3.9 (2.0-3.7cm) LVDs2.1 (2.5-4.0cm)LA (MM) (1.9-4.0cm)Aortic Cusp Exc1.7 (1.5-2.0cm) EF (%) 60.0 (55-70%)Rt. Atrium2.7 (1.9-4.0cm)Asc. Aorta3.3 cm IVSd1.3 (0.7-1.1cm)RV (D) (1.8-2.4cm) PWd0.9 (0.7-1.1cm) Mitral Valve MitralMitral Stenosis E wave0.62m/sMV Mean GR.mmHg A wave0.87m/sMV Peak GR.mmHg E/A ratio0.72D MVAcm2 DECEL [id number] 1/2 Timems Aortic Valve Aortic ValveAortic Stenosis V11.03m/Nnamdi Mean GR.4mmHg V21.37m/Nnamdi Peak GR.8mmHg LVOT Diameter2.3 (1.8-2.4cm)Doppler AVA3.12cm2 Pulmonic Valve V20.83m/s Tricuspid Valve TR Velocity2.27m/s [id number] Conclusion lvef 55% by visual estimate mild LVH left atrium enlarged no severe valve abnormalities noted
[2024-04-14] VITALS (8 sets, daily range): BP systolic 98–115; BP diastolic 68–81; PULSE 79–94; RESP 16–20; TEMP 97.3–98.8; O2SAT 93–100
[2024-04-14 05:54] LABS: Basophils # (auto) 0 10 ^3/uL (0-0.2); Basophils % (auto) 0.3 % (0.0-2.0); Eosinophils # (auto) 0.1 10 ^3/uL (0-0.8); Eosinophils % (auto) 0.7 % (0.0-7.0); Hematocrit 31.9 % (41.0-53.0); Hemoglobin 10.7 g/dL (13.5-17.5); Lymphocytes # (auto) 2.4 10 ^3/uL (0.4-5.4); Lymphocytes % (auto) 32.6 % (10.0-50.0); Mean Corpuscular Hemoglobin 28.5 pg (28.0-32.0); Mean Corpuscular Hgb Conc. 33.6 g/dL (32.0-36.0); Mean Corpuscular Volume 85.1 fL (80.0-100.0); Monocytes # (auto) 0.6 10 ^3/uL (0-1.3); Monocytes % (auto) 8.4 % (0.0-12.0); Neutrophils # (auto) 4.2 10 ^3/uL (1.6-8.6); Platelet Count (auto) 377 10^3/uL (140-450); Red Blood Cells 3.75 10^6/uL (4.5-5.90); Red Cell Distribution Width 16.1 % (11.8-14.3); White Blood Cell 7.3 10^3/uL (4.4-10.8)
--- NOTE | 2024-04-14 10:38 | DVHPNRES ---
Progress Note Date Seen: Apr 14, 2024 Resident Creating Document: JAYLENE HOFFMAN RESIDENT Has the PT tested + for MRSA If YES, has PT been informed?: No Medical Necessity Reason Pt with a Central, PICC or Fol: No Medical Necessity Reason Patient was seen and examined at bedside Patient reports that he is feeling well and does not complaint of any abdominal pain. Patient denied shortness of breath, chest pain, dizziness, nausea, vomiting, diarrhea. passing gas Drain in the right upper quadrant with serosanginous fluid Objective vital signs Vital Sign Date Time Temp Pulse Resp B/P (MAP) Pulse Ox O2 Delivery O2 Flow Rate FiO2 04/14/24 09:00 97.6 94 18 104/74 (84) 99 97.6 04/13/24 20:00 Room Air* 0 21 Total Intake and Output 04/13/24 04/13/24 04/14/24 15:00 23:00 07:00 Intake Total 714 ml 1044 ml 800 ml Output Total 0 ml 750 ml Balance 714 ml 1044 ml 50 ml medications Current Medications Medications Dose Ordered Sig/Naomi Route Start Time Stop Time Status Last Admin Dose Admin Albuterol 2.5 mg Q4HPRN PRN NEB 04/04/24 16:00 Cancel Ipratropium [place] 0.5 mg Q4HPRN PRN NEB 04/04/24 16:00 Cancel Docusate Sodium 100 mg BIDPRN PRN PO 04/04/24 16:00 04/12/24 10:58 100 MG Acetaminophen/ Hydrocodone Bitart 1 tab Q6HPRN PRN PO 04/06/24 01:00 04/13/24 18:21 1 TAB Meropenem 50 ml @ 17 mls/hr Q8HR IV 04/08/24 22:00 04/14/24 10:31 17 MLS/HR Enteral Nutritional Formula 240 ml BIDWM PO 04/09/24 08:00 04/14/24 08:00 240 ML Pantoprazole Sodium 40 mg DAILY@0600 PO 04/11/24 06:00 04/14/24 06:23 40 MG Apixaban 5 mg BID PO 04/12/24 22:00 04/14/24 10:31 5 MG Examination General Appearance: Alert, Oriented X3, Cooperative, No acute distress HEENT: EOMI Respiratory: Clear to auscultation, Normal air movement Cardiovascular: Regular rate, Normal S1, Normal S2 Abdominal: Normal bowel sounds Extremities: No cyanosis, No edema, Normal pulses, No tenderness/swelling Skin: No rashes, No breakdown Neuro: Normal speech and tone laboratory and microbiology Laboratory Tests 04/14/24 05:37 04/13/24 04:05 Test 04/13/24 04:05 Range/Units Serum Glucose 98 74-106 mg/dL Microbiology Date/Time Source Procedure Growth Status 04/10/24 11:20 Aspirate Gram Stain - Final Resulted 04/10/24 11:20 Aspirate Body Fluid Culture - Preliminary Resulted 04/05/24 00:00 Nose MRSA Screen - Final Complete 04/04/24 16:57 Blood Blood Culture - Preliminary Resulted Problem List/Assessment/Plan Problem List/Assessment/Plan #Sepsis due to liver abscess -IV fluids -IV antibiotics, on meropenem 1 g IV q.8 hour - white cell count improving -blood culture showing growth of gram positive cocci in chains, susceptibility pending - repeat blood cultures sent - echo pending #Acute hypoxic resp failure due to covid pneumonia -resolving , on room air #COVID pneumonia -on 02 #GERD -protonix #?portal vein thrombosis -Heparin drip stopped - started on eliquis #hypokalemia Replaced -Monitor BMP #Normocytic anemia -CBC monitor #Multi-septated mass adjacent to the gallbladder measuring 5 by 4.6 x 3.7 cm likely liver abscess -IV antibiotics -surgery consult and GI consult - MRCP and MRI of the abdomen showed 1. Increase in size of Multi septate fluid containing mass in segment 5 of the liver with surrounding edema in the adjacent parenchyma, favored to reflect abscess. 2. Occlusion of the left portal vein. 3. Aneurysm of the infrarenal abdominal aorta measuring at least 5.3 cm AP and 4.8 cm transverse, with aortoiliac stent grafts seen to better advantage on recent CT. 4. Mild distal colonic diverticulosis. - percutaneous drainage of liver abscess, US and CT guided placement of 8 Swedish pigtail drain into a liver abscess with 90 mL purulent fluid aspirated, drain to remain for 4-6 weeks. - Repeat MRI MRCP in 4 weeks to evaluate pathology - initial blood culture preliminary reported growth of gram postitive cocci in chains, repeat blood cultures sent - ECHO pending - patient is on meropenam #Thrombocytopenia likely due to sepsis -CBC monitor #2 small 6 mm noncalcified pulmonary nodules on the right -follow up with repeat CT #Aorta bi iliac stent in the abdominal aorta beginning just below the renal arteries and extending into the proximal iliac vessels bilaterally -seen on CT #DVT prophylaxis - enoxaparin 40mg qd Patient's PCP: Siddhartha Villegas Code status, full code Case discussion with Dr Rick Plan discussed with: Patient, Other (rn) Dietary Evaluation Review Recommendations by RD: Protein Supplementation Comments: 1) Initiate Ensure Enlive bid. 2) Advance patient diet when medically feasible to cardiac diet. 3) Monitor PO intake and labs. Expected Outcomes/Goals: 1) Patient labs or appetite to improve 2) Patient diet to advance 3) F/u in 2-3 days Date of Service: Apr 14, 2024 Billing Provider: HUSSEIN RICK MD Common Visit Codes: [id number] INP/OBS CARE(HIGH) JAYLENE HOFFMAN RESIDENT Apr 14, 2024 10:38 HUSSEIN RICK MD Apr 14, 2024 22:12
[2024-04-15 06:29] LABS: Basophils # (auto) 0 10 ^3/uL (0-0.2); Eosinophils # (auto) 0.1 10 ^3/uL (0-0.8); Eosinophils % (auto) 0.8 % (0.0-7.0); Hemoglobin 10.9 g/dL (13.5-17.5); Lymphocytes # (auto) 2.4 10 ^3/uL (0.4-5.4); Mean Corpuscular Hgb Conc. 32.7 g/dL (32.0-36.0); Monocytes # (auto) 0.6 10 ^3/uL (0-1.3); Red Blood Cells 3.91 10^6/uL (4.5-5.90)
[2024-04-15 06:33] LABS: Basophils % (auto) 0.2 % (0.0-2.0); Hematocrit 33.2 % (41.0-53.0); Lymphocytes % (auto) 23.4 % (10.0-50.0); Mean Corpuscular Hemoglobin 27.8 pg (28.0-32.0); Mean Corpuscular Volume 85.1 fL (80.0-100.0); Monocytes % (auto) 5.3 % (0.0-12.0); Neutrophils # (auto) 7.3 10 ^3/uL (1.6-8.6); Neutrophils % (auto) 70.3 % (37.0-80.0); Platelet Count (auto) 437 10^3/uL (140-450); Red Cell Distribution Width 16.1 % (11.8-14.3); White Blood Cell 10.4 10^3/uL (4.4-10.8)
[2024-04-15 07:12] LABS: Albumin 4.4 g/dL (3.2-4.8); Anion Gap 6 (5-15); BUN/Creatinine Ratio 11.1 (10.0-20.0); Bilirubin, Total 0.4 mg/dL (0.2-1.0); Blood Urea Nitrogen 10 mg/dL (9-23); Calcium 10.2 mg/dL (8.7-10.4); Carbon Dioxide 26 mmol/L (20-31); Chloride 103 mmol/L (98-107); Glucose 97 mg/dL (74-106); Potassium 4.5 mmol/L (3.5-5.1); Total Protein 8.1 g/dL (5.7-8.2)
[2024-04-15 07:18] LABS: Alanine Aminotransferase 80 U/L (7-40); Alkaline Phosphatase 150 U/L (46-116); Aspartate Aminotransferase 64 U/L (13-40); Sodium 135 mmol/L (136-145)
[2024-04-15 07:35] LABS: Hepatitis A Total Antibody Positive (Negative)
[2024-04-15 07:37] LABS: Hepatitis B Surface Antibody Negative (Negative); Hepatitis B Surface Antigen Negative (Negative); Hepatitis C Antibody Reactive (Negative)
[2024-04-15] MEDS: GADOTERATE MEG 10 MMOL/20ml INJ (0.5MMOL/ml) IV ONE (07:51)
[2024-04-15 08:00] VITALS: RESP 18
[2024-04-15 09:00] VITALS: BP 105/73; PULSE 76; RESP 18; TEMP 97.5; O2SAT 100
[2024-04-15 10:00] VITALS: O2SAT 100
[2024-04-15 13:00] VITALS: BP 112/63; PULSE 77; RESP 18; TEMP 97.7; O2SAT 100
[2024-04-15] MEDS ORDERED: AUG875T PO (13:43)
[2024-04-15] MEDS ORDERED: LACT10SO3 PO (13:44)
[2024-04-15 14:33] VITALS: TEMP 36.5
--- NOTE | 2024-04-15 20:37 | DVHDSRES ---
Discharge Summary Date of Admission Resident Creating Document: NIELS PHIPPS RESIDENT Apr 04, 2024 at 15:53 Date of Discharge: Apr 15, 2024 Admitting Diagnosis acute cholecystitis acute 4.6 x 3.7 cm heterogeneous complex appearing mass in the right hepatic lobe near the gallbladder fossa acute leukocytosis like from gallbladder infection acute dyspnea without hypoxia acute liver DVT vs Pe pt unsure of history was dx at [facility] acute transaminitis likely for liver mass acute anemia acute weight loss in 2wks 20 lbs Wounds: none Labs/Diagnostic Data: Laboratory Results Test 04/15/24 05:58 04/12/24 12:01 04/12/24 11:02 04/12/24 05:21 White Blood Count 10.4 10^3/uL (4.4-10.8) Red Blood Count 3.91 10^6/uL (4.5-5.90) Hemoglobin 10.9 g/dL (13.5-17.5) Hematocrit 33.2 % (41.0-53.0) Mean Corpuscular Volume 85.1 fL (80.0-100.0) Mean Corpuscular Hemoglobin 27.8 pg (28.0-32.0) Mean Corpuscular Hemoglobin Concent 32.7 g/dL (32.0-36.0) Red Cell Distribution Width 16.1 % (11.8-14.3) Platelet Count 437 10^3/uL (140-450) Mean Platelet Volume 9.6 fL (6.9-10.8) Neutrophils (%) (Auto) 70.3 % (37.0-80.0) Lymphocytes (%) (Auto) 23.4 % (10.0-50.0) Monocytes (%) (Auto) 5.3 % (0.0-12.0) Eosinophils (%) (Auto) 0.8 % (0.0-7.0) Basophils (%) (Auto) 0.2 % (0.0-2.0) Neutrophils # (Auto) 7.3 10 ^3/uL (1.6-8.6) Lymphocytes # (Auto) 2.4 10 ^3/uL (0.4-5.4) Monocytes # (Auto) 0.6 10 ^3/uL (0-1.3) Eosinophils # (Auto) 0.1 10 ^3/uL (0-0.8) Basophils # (Auto) 0 10 ^3/uL (0-0.2) Nucleated Red Blood Cells 0.0 % Sodium Level 135 mmol/L (136-145) Potassium Level 4.5 mmol/L (3.5-5.1) Chloride Level 103 mmol/L (98-107) Carbon Dioxide Level 26 mmol/L (20-31) Anion Gap 6 (5-15) Blood Urea Nitrogen 10 mg/dL (9-23) Creatinine 0.90 mg/dL (0.700-1.30) Glomerular Filtration Rate Calc 91 mL/min (>90) BUN/Creatinine Ratio 11.1 (10.0-20.0) Serum Glucose 97 mg/dL (74-106) Calcium Level 10.2 mg/dL (8.7-10.4) Total Bilirubin 0.4 mg/dL (0.2-1.0) Aspartate Amino Transferase (AST) 64 U/L (13-40) Alanine Aminotransferase (ALT) 80 U/L (7-40) Alkaline Phosphatase 150 U/L (46-116) Total Protein 8.1 g/dL (5.7-8.2) Albumin 4.4 g/dL (3.2-4.8) POC Glucose 125 mg/dl (70-106) Prothrombin Time 12.0 sec (9.3-11.8) Prothrombin Time INR 1.15 (0.9-1.15) Activated Partial Thromboplast Time 68.2 SEC (24.5-34.5) Hemoglobin A1c 5.8 % A1C (<5.7) Test 04/09/24 11:00 04/08/24 17:44 04/08/24 06:17 04/06/24 05:54 SARS-CoV-2 Antigen (Rapid) Negative (NEGATIVE) Tumor Marker Alpha Fetoprotein <1.8 ng/mL (0.0-8.4) Hepatitis A Antibody Total Positive (Negative) Hepatitis B Surface Antigen Negative (Negative) Hepatitis B Surface Antibody Negative (Negative) Hepatitis B Core Total Antibody Negative (Negative) Hepatitis C Antibody Reactive (Negative) Magnesium Level 2.0 mg/dL (1.6-2.6) Differential Total Cells Counted 100.0 (100) Neutrophils % (Manual) 70 (37.0-80.0) Band Neutrophils % (Manual) 3 Lymphocytes % (Manual) 12 (10.0-50.0) Monocytes % (Manual) 15 (0-12) Eosinophils % (Manual) 0 (0-7) Basophils % (Manual) 0 (0.0-2.0) Metamyelocytes % (manual) 0 Myelocytes % (Manual) 0 Promyelocytes % (Manual) 0 Blast Cells % (Manual) 0 Reactive Lymphocytes 0 Platelet Estimate Decrea Large Platelets Few Anisocytosis (manual) Slight Tear Drop Cells Few Phosphorus Level 3.1 mg/dL (2.4-5.1) Test 04/04/24 16:50 04/04/24 16:40 04/04/24 15:20 04/04/24 10:15 Carcinoembryonic Antigen 1.58 ng/mL (<=5.0) CA 125 Antigen 19.6 U/mL (Not Estab.) Blood Gas Specimen Type Arterial Blood Gas Sample Site Left radial Blood Gas Patient Temperature 37.0 Arterial Blood Date Drawn [id number] Arterial Blood pH 7.487 (7.350-7.450) Arterial Blood Partial Pressure CO2 30.5 mmHg (35.0-48.0) Arterial Blood Partial Pressure O2 73.7 mmHg (83.0-108.0) Arterial Blood HCO3 22.6 mmol/L (21.0-28.0) Arterial Blood Oxygen Saturation 94.7 % (94.0-98.0) Arterial Blood Base Excess -0.3 mmol/L (-2.0-3.0) Arterial Blood Oxyhemoglobin 93.9 % (94.0-98.0) Arterial Blood Carboxyhemoglobin 0.2 % (0.5-1.5) Arterial Blood Methemoglobin 0.6 % (0.0-1.5) Doc Test Yes Blood Gas Total Hemoglobin 10.10 g/dL (13.5-17.5) Blood Gas Modality Room air FiO2 % 21.0 Urine Color Dark-yellow (Yellow) Urine Clarity Clear (Clear) Urine pH 6.0 (5.0-9.0) Urine Specific [place] 1.035 (1.001-1.035) Urine Protein 2+ (Negative) Urine Ketones Trace (Negative) Urine Blood 1+ /uL (Negative) Urine Nitrite Negative (Negative) Urine Bilirubin 1+ (Negative) Urine Urobilinogen 12 mg/dL (Negative) Urine Leukocyte Esterase Negative /uL (Negative) Urine RBC 6 /hpf (0 - 3) Urine WBC 3 /hpf (0 - 3) Urine Squamous Epithelial Cells Few /hpf (<5) Urine Bacteria None seen /hpf (None Seen) Urine Mucus Few (None Seen) Urine Glucose Normal mg/dL (Normal) Lipase 32 U/L (12-53) Other Laboratory Tests 04/15/24 05:58 Brief Hx & Hospital Course: HPI 73-year-old male past medical history hyperlipidemia Gerd, ?portal vein thrombosis patient unsure which diagnosis it was but he states he has a blood clot in his liver diagnosed at [place] March 19, 2024 is currently on Eliquis, surgical history six months ago aortic aneurysm with a stent placement chief complaint patient states he has been dealing with abdominal pain he states he was seen at [place] and discharged March 19, 2024 he was in the hospital for a week in there he had care and discharged home he states that he had seen his primary medical doctor on Monday and they placed him on Eliquis due to a blood clot in his liver. Since last week he has not been able to keep anything down and he has had decreased oral intake and he has been vomiting all week he states he has been vomiting so much that he decided come to the ER for evaluation. He does admit to a 20 lb weight loss in the last month. Patient states he does have right-sided abdominal pain he also had some chills with no fever. He denies any diarrhea no chest pain no shortness with the breath. Hospital course Patient with chief complaint of abdominal pain underwent Gall bladder US which showed heterogeneous complex appearing mass close to the gallbladder fossa which was also seen on the CT Abdomen. Patient was tested Covid positive and was shifted to an isolation room. Surgery consultation was done who recommended getting an MRI abdomen, which also showed the mass likely an abscess. Interventional radiology were consulted who drained the abscess and placed a drain which is to be kept for 6 weeks. patient was initially septic and was started on IV antibiotics with gradual improvement of symptoms. patient was discharged in stable condition to home with drain in the RUQ in place. Discharge plan Follow up in the discharge clinic in one week Follow up with interventional cardiology in 4 weeks Follow up in the GI outpatient clinic for further workup continue on home medications Antibiotics- Augmentin 875mg bid X 14 days Consults/Reason for consult GI CONSULTATION FOR ABDOMINAL ABSCESS SURGERY CONSULTATION FOR ABDOMINAL ABSCESS Operations or Procedures GB ultrasound FINDINGS: The liver measures 15.8 cm. There is an approximately 4.6 x 3.7 cm heterogeneous complex appearing mass in the right hepatic lobe near the gallbladder fossa. There is no intrahepatic biliary ductal dilatation. There is echogenic debris / sludge in the gallbladder. The gallbladder wall appears thickened and edematous. There is no significant pericholecystic fluid. Racing Secretary reports a negative Silva's sign. The common duct is not adequately seen. The right kidney measures 10 cm length. No sonographic evidence of nephrolithiasis or hydronephrosis. Visualized portions of the pancreas appears within normal limits. IMPRESSION: 1. Nonspecific 4.6 x 3.7 cm heterogeneous complex appearing mass in the right hepatic lobe near the gallbladder fossa. Further evaluation with CT abdomen and pelvis with contrast is recommended. 2. There is echogenic debris / sludge in the gallbladder. The gallbladder wall appears thickened and edematous. There is no significant pericholecystic fluid. CT Chest/Abdomen/Pelvis FINDINGS: Lung Bases: Nodules in the right lung field 1 measuring 6.6 cm in the right middle lobe (series 6 image 26). 2nd nodule right lower lobe measuring 6.7 mm (series 6; image 30 ) Liver: There is a multi-septated hypodense mass adjacent the gallbladder measuring 5 x 4.6 by 3.7 cm. Tissue density 24 Hounsfield units. May represent an abscess. Liver appears heterogeneous with findings of steatosis. Gallbladder and Biliary Tree: No calcified gallstones in the gallbladder. Spleen: Unremarkable Pancreas: The pancreas is normal in appearance without focal lesions or abnormal enhancement. Adrenal Glands: Unremarkable Kidneys: Kidneys demonstrate normal symmetric enhancement without focal lesions, calculi or hydronephrosis. Bladder: Unremarkable Bowel: The stomach is grossly normal in appearance. Small bowel and colon are normal in caliber and distribution. The appendix is not visualized; however, no secondary findings of acute appendicitis identified. Ascites: Absent Lymphadenopathy: No mesenteric, retroperitoneal or periportal lymphadenopathy. Abdominal Wall and Mesentery: Unremarkable. Vasculature: Aorta bi-iliac stent in place. Beginning just below the level of the renal arteries and extending into the right and left iliac arteries. Distal abdominal aorta measures 6.2 cm and there are no findings to suggest endoleak. Pelvic Organs: Unremarkable Musculoskeletal: No aggressive focal bony lesions, acute fractures or dislocation. Soft tissues: Unremarkable. IMPRESSION: 1. Multi-septated mass adjacent to the gallbladder measuring 5 by 4.6 x 3.7 cm. Tissue density 24 Hounsfield units. Most likely an abscess. Can not entirely exclude neoplasm although unlikely since it is solitary and septated. 2. No cholelithiasis. 3. 2 small 6 mm noncalcified pulmonary nodules on the right recommend follow-up according to Fleischner criteria. 4. Aorta bi iliac stent in the abdominal aorta beginning just below the renal arteries and extending into the proximal iliac vessels bilaterally. MRI Abdomen with and without contrast FINDINGS: Lower Thorax: Unremarkable. Liver and Biliary system: Normal-sized liver. There is a multi septate fluid containing mass in segment 5 of the liver measuring 5.9 x 6.3 x 7.0 cm on series 4, image 18 and series 3, image 15 , increased in size since recent CT where it measured 3.9 x 4.4 cm when measured in a similar fashion. There is water restriction within this fluid collection There is occlusion of the left portal vein. The main and right hepatic veins are patent. There is geographic relative T2 hyperintensity of the right lobe of the liver most pronounced in segment 5 surrounding the aforementioned fluid collection. The gallbladder is normal caliber. There is no biliary ductal dilatation. Spleen: Unremarkable. Adrenal Glands and Kidneys: Unremarkable. Pancreas and Retroperitoneum: Unremarkable. Aorta and Major Vessels: There is aortoiliac stent graft better seen on recent CT, traversing an infrarenal abdominal aortic aneurysm measuring 4.8 cm transverse on series 3, image 15 and 5.3 cm AP on series 4, image 32. Bowel, Mesentery and Peritoneal space: There is mild colonic diverticulosis. There is no fluid collection or ascites. Normal appendix. Abdominal wall and Osseous Structures: No acute abnormality. IMPRESSION: 1. Increase in size of Multi septate fluid containing mass in segment 5 of the liver with surrounding edema in the adjacent parenchyma, favored to reflect abscess. 2. Occlusion of the left portal vein. 3. Aneurysm of the infrarenal abdominal aorta measuring at least 5.3 cm AP and 4.8 cm transverse, with aortoiliac stent grafts seen to better advantage on recent CT. 4. Mild distal colonic diverticulosis. Ultrasound guided abscess drainage PROCEDURE: An informed consent was obtained. The patient was placed supine on the CT table. IV sedation was administered. The suspicious fluid collection was localized with ultrasound and CT and the overlying skin prepped with chlorhexidine which was allowed to dry and draped in the usual sterile fashion. Time out was performed and infiltrated with 1% Xylocaine. With US guidance, 19- gauge centesis needle catheter was advanced into the fluid collection. . A 0.035 wire was advanced into the fluid collection. After serial dilatation, a 8 [place] multipurpose pigtail catheter was placed into the collection. Approximately 90 cc of purulent fluid was aspirated. The drain was sutured at the skin surface and connected to suction drainage. No immediate complication was identified. Post procedure catherogram was obtained. DLP 796 SEDATION: Dr. Nam Castro was personally responsible for the administration of moderate sedation during the procedure performed, including the use of an independent trained observer who had no other duties during the procedure. The drugs utilized were IV fentanyl and versed (see nursing log for details). The total time of supervision by the attending physician was approximately 30 minutes. FINDINGS: Limited US scan of through the liver demonstrates a fluid collection in the right hepatic lobe adjacent to the gallbladder. Collection appears complex. Post procedure scan shows pigtail drain within the collection. IMPRESSION: US and CT guided placement of 8 [place] pigtail drain into a liver abscess with 90 mL purulent fluid aspirated. PLAN: Routine tube care. Drain to remain in place for 4-6 weeks 2D ECHOCARDIOGRAM lvef 55% by visual estimate mild LVH left atrium enlarged no severe valve abnormalities noted Condition at Discharge: Good Final Diagnosis/Problems List #Sepsis due to liver abscess #Multi-septated mass adjacent to the gallbladder measuring 5 by 4.6 x 3.7 cm likely liver abscess #Acute hypoxic resp failure due to covid pneumonia #COVID pneumonia #GERD #?portal vein thrombosis #hypokalemia #Normocytic anemia #Thrombocytopenia likely due to sepsis #2 small 6 mm noncalcified pulmonary nodules on the right Discharge Disposition: Home Discharge Instruct/Medications Diet: Consistent carbohydrate Activity: No Restrictions, As Tolerated Follow Up/Referral: Follow up in the D/C clinic on monday04/23/2023 with / in the afternoon 1-5 pm. Outpatient follow up with IR in 4 weeks for removal of pigtail catheter after repeating CT abdomen Outpatient follow up with GI for ongoing observation management and elective colonoscopy Medications: as per EMR Discharge Statement: "Patient was advised to return to the ER or call 911 if any headaches, dizziness, shortness of breath, chest pain, abdominal pain, bleeding, fevers, or worsening of medical condition. Patient was counseled about treatment plan, medications, possible side effects, patientverbalized understanding. All questions were answered to the best of my ability. This discharge took greater then 30 minutes in planning, reviewing documentation, counseling the patient, and discussing with other team members." ASSESSMENT ASSESSMENT Assessment #Sepsis due to liver abscess #Multi-septated mass adjacent to the gallbladder measuring 5 by 4.6 x 3.7 cm likely liver abscess #Acute hypoxic resp failure due to covid pneumonia #COVID pneumonia #GERD #?portal vein thrombosis #hypokalemia #Normocytic anemia #Thrombocytopenia likely due to sepsis #2 small 6 mm noncalcified pulmonary nodules on the right NIELS PHIPPS RESIDENT Apr 15, 2024 20:37
== END 2024-04-15 15:31 | disposition home or self-care (01) | DRG 871 ==
LOC: ER 09:22 → OVERFLOW 15:53 → TELE 20:51 → TELE-CENTR 22:19 → TELE-EAST 04-05 20:54 → EAST 04-08 20:47
PROVIDERS: ADMIT Hospitalist; ATTEND Hospitalist
PROC: 0F913ZZ Drainage of Right Lobe Liver, Percutaneous Approach (ICD-10-PCS; principal; 2024-04-10)
DX: A41.9 Sepsis, unspecified organism (principal); I81 Portal vein thrombosis; J12.82 Pneumonia due to coronavirus disease 2019; J96.01 Acute respiratory failure with hypoxia; U07.1 COVID-19; K75.0 Abscess of liver; K81.0 Acute cholecystitis; E87.3 Alkalosis; E87.20 Acidosis, unspecified; D68.69 Other thrombophilia; D64.9 Anemia, unspecified; F17.210 Nicotine dependence, cigarettes, uncomplicated; R63.4 Abnormal weight loss; R74.01 Elevation of levels of liver transaminase levels; K21.9 Gastro-esophageal reflux disease without esophagitis; D69.6 Thrombocytopenia, unspecified; E78.5 Hyperlipidemia, unspecified; K82.8 Other specified diseases of gallbladder; E87.6 Hypokalemia; K57.30 Diverticulosis of large intestine without perforation or abscess without bleeding; I71.43 Infrarenal abdominal aortic aneurysm, without rupture; Z86.711 Personal history of pulmonary embolism; Z86.718 Personal history of other venous thrombosis and embolism; Z79.01 Long term (current) use of anticoagulants; Z86.79 Personal history of other diseases of the circulatory system; Z80.0 Family history of malignant neoplasm of digestive organs; Z68.24 Body mass index [BMI] 24.0-24.9, adult
CPT/HCPCS: 10005; 36415; 36600; 71045; 71260; 71275; 74150; 74177; 74183; 75989; 76705; 77012; 80048; 80053; 81001; 82105; 82378; 82805; 82962; 83036; 83690; 83735; 84100; 85007; 85025; 85027; 85610; 85730; 86304; 86704; 86706; 86708; 86803; 87040; 87081; 87205; 87340; 87426; 93005; 93306; 94640; G0378; J2003; J2185; J2250; J2405; J2470; J2543; J3480

== ENCOUNTER → 2024-05-06 | Outpatient (CLI) | payer MEDICARE, MEDICAID ==
[~2024-05-06] MED LIST: APIX5TAB PO; ASPI-325 PO; ATOR40TA52 PO; AUG875T PO; FAMO40TA7 PO; LACT10SO3 PO
[2024-05-06 12:47] LABS: Free T4 (Free Thyroxine) 0.82 ng/dL (0.89-1.76); Prostate Specific Antigen 7.47 ng/mL (0.0-4.0)
[2024-05-07 08:06] LABS: PSA Free 0.9 ng/mL; Prostate Specific Antigen 8.8 ng/mL (0.0-4.0)
== END | disposition home or self-care (01) ==
LOC: LAB 11:33
PROVIDERS: ATTEND Internal Medicine
DX: K75.0 Abscess of liver (principal); B19.20 Unspecified viral hepatitis C without hepatic coma; R74.8 Abnormal levels of other serum enzymes; Z79.899 Other long term (current) drug therapy
CPT/HCPCS: 36415; 84153; 84154; 84439; 84443

== ENCOUNTER → 2024-12-06 | Day surgery (SDC) | payer MEDICARE, MEDICAID ==
[2024-12-02 10:24] LABS: Hematocrit 34.1 % (41.0-53.0); Hemoglobin 11.3 g/dL (13.5-17.5); Mean Corpuscular Hemoglobin 26.8 pg (28.0-32.0); Mean Corpuscular Volume 81.1 fL (80.0-100.0); Nucleated Red Blood Cells % 0.0 %
[2024-12-02 10:27] LABS: Urine Protein, UAD Negative (Negative)
[2024-12-02 10:28] LABS: INR 1.08 (0.9-1.15); Partial Thromboplastin Time 32.5 SEC (24.5-34.5); Prothrombin Time 11.4 sec (9.3-11.8)
[2024-12-02 11:00] LABS: Alanine Aminotransferase 18 U/L (7-40); Albumin 4.7 g/dL (3.2-4.8); Alkaline Phosphatase 100 U/L (46-116); Calcium 9.7 mg/dL (8.7-10.4); Carbon Dioxide 27 mmol/L (20-31); Glucose 81 mg/dL (74-106); Potassium 4.5 mmol/L (3.5-5.1)
[2024-12-02 11:01] LABS: Anion Gap 5 (5-15); BUN/Creatinine Ratio 6.1 (10.0-20.0); Bilirubin, Total 0.3 mg/dL (0.2-1.0); Blood Urea Nitrogen 6 mg/dL (9-23); Chloride 109 mmol/L (98-107); Sodium 141 mmol/L (136-145); Total Protein 8.0 g/dL (5.7-8.2)
[~2024-12-06] VITALS: Ht 162.6 cm; Wt 65.8 kg
[~2024-12-06] MED LIST changes: -ASPI-325 PO; -AUG875T PO; +EZET10TA22 PO; -FAMO40TA7 PO; +FURO40TA4 PO; -LACT10SO3 PO
[2024-12-06 11:27] VITALS: PULSE 69; RESP 20; TEMP 99; O2SAT 100
--- NOTE | 2024-12-06 11:30 | DVHOP2 ---
Operative Report DATE OF OPERATION: 12/06/24 PROCEDURE: Upper Endoscopy with biopsy. PREOPERATIVE INDICATION: The patient is a 74 -year-old male undergoing endoscopy for GERD POSTOPERATIVE DIAGNOSES: 1. Minimal gastritis otherwise essentially normal examination up to the 2nd and 3rd part of the duodenum PROCEDURE PERFORMED BY: Judah Albert GI NURSE: Rayne SCOPE: Olympus videoendoscope. ASA CLASS: 3 PREOPERATIVE MEDICATIONS: Mac sedation, Aki Jasso PROCEDURE IN DETAIL: After obtaining an informed consent, the patient was placed on left lateral decubitus position. The patient was then sedated with the above medications. A bite block was placed between his teeth. The endoscope was then passed through the oropharynx, into the esophagus, and through the stomach and pylorus up to the second and third part of the duodenum. The endoscope was then withdrawn. Second and 3rd part of the duodenal and the duodenal bulb were normal. Duodenal biopsies were obtained The pre-pyloric area antrum and body were essentially unremarkable except for minimal gastritis. Gastric biopsies were obtained On retroflexion the fundus cardia and angularis were normal. The endoscope was then withdrawn into distal esophagus. Patient had a slightly irregular squamocolumnar junction but no significant erosive esophagitis The remaining distal and proximal esophagus and oropharynx were unremarkable The patient tolerated the procedure well without difficulty. COMPLICATIONS : None SPECIMENS: Duodenal biopsy Gastric biopsies DISPOSITION: Stable D/C to home PLAN: 1. Await for biopsy result 2. Will place pt on Protonix 40 mg p.o. daily or as needed 3. Resume GI soft diet advance as tolerated 4. Outpatient follow up with me in 2-4 weeks to review results and discuss further management JUDAH ALBERT MD Dec 06, 2024 11:30
--- NOTE | 2024-12-06 11:35 | DVHOP2 ---
Operative Report DATE OF OPERATION: 12/06/24 PROCEDURE: Colonoscopy with hot snare polypectomy. PREOPERATIVE INDICATION: The patient is a 74 -year-old male undergoing colonoscopy for colon cancer screening POSTOPERATIVE DIAGNOSES: 1. Moderate scattered diverticular disease most prominent in the sigmoid 2. There were three less than 5 mm benign-appearing ascending colon polyps that were seen and removed by cold biopsy forceps 3. There were two 1.5 cm proximal descending colon polyps that were seen and removed via hot snare polypectomy and the specimens were retrieved 4. 1+ internal hemorrhoids that were slightly engorged otherwise completely normal colonoscopy examination up to the cecum PROCEDURE PERFORMED BY: Judah Albert M.D. SCOPE: Olympus videocolonoscope. ASA CLASS: 3. PREOPERATIVE MEDICATIONS: Mac sedation Aki Jasso PROCEDURE IN DETAIL: After obtaining an informed consent, the patient was placed on left lateral decubitus position. He was then sedated with the above medications. A rectal examination was performed that was normal. The colonoscope was then passed through the anus into the rectosigmoid and through the descending, transverse, and ascending colon up to the cecum with visualization of the appendiceal orifice, base of the cecum and the ileocecal valve. The colonoscope was then withdrawn. In the ascending colon there were three less than 5 mm benign-appearing polyps These were removed by cold biopsy forceps. Patient had scattered diverticular disease most prominent in the sigmoid There were two 1-1.5 cm benign-appearing proximal descending colon polyps at about 45 cm above the anal verge These were removed by hot snare polypectomy and the specimens were retrieved On retroflexion patient had 1+ internal hemorrhoid which were slightly engorged The patient tolerated the procedure well without difficulty. WITHDRAWAL TIME: 9 minutes QUALITY OF THE PREP: [place] Bowel Prep score: 9. COMPLICATIONS : None SPECIMENS: Ascending colon polyps x3 Descending colon polyps x2 DISPOSITION: Transfer back to the floor D/C to home PLAN: 1. Repeat colonoscopy base on biopsy result likely in 2-3 years 2. Resume GI soft diet advance as tolerated, increase fluid and fiber intake 3. Hold aspirin and blood thinners for 3-5 days 4. Outpatient follow up with me in 4-6 weeks to review results and discuss further management JUDAH ALBERT MD Dec 06, 2024 11:35
[2024-12-06 12:10] VITALS: BP 162/93; PULSE 65; RESP 20; O2SAT 99
== END | disposition home or self-care (01) ==
LOC: SUR 09:43
PROVIDERS: ATTEND Internal Medicine Gastroenterology
DX: Z12.11 Encounter for screening for malignant neoplasm of colon (principal); D12.2 Benign neoplasm of ascending colon; D12.4 Benign neoplasm of descending colon; K63.5 Polyp of colon; K57.30 Diverticulosis of large intestine without perforation or abscess without bleeding; K64.8 Other hemorrhoids; K29.50 Unspecified chronic gastritis without bleeding; K21.9 Gastro-esophageal reflux disease without esophagitis; R12 Heartburn; I10 Essential (primary) hypertension; F17.210 Nicotine dependence, cigarettes, uncomplicated; Z79.899 Other long term (current) drug therapy; Z95.5 Presence of coronary angioplasty implant and graft; Z98.890 Other specified postprocedural states
CPT/HCPCS: 36415; 43239; 45380; 45385; 80053; 81001; 85025; 85610; 85730; 88305; 88342; J7030

== ENCOUNTER 2024-12-25 11:01 | Outpatient (CLI) | payer MEDICARE, MEDICAID ==
[2024-12-25 11:16] LABS: Hematocrit 34.7 % (41.0-53.0); Hemoglobin 11.2 g/dL (13.5-17.5); Mean Corpuscular Hemoglobin 25.9 pg (28.0-32.0); Mean Corpuscular Volume 79.9 fL (80.0-100.0); Nucleated Red Blood Cells % 0.0 %
[2024-12-25 11:40] LABS: Alanine Aminotransferase 14 U/L (7-40); Albumin 4.8 g/dL (3.2-4.8); Alkaline Phosphatase 104 U/L (46-116); Anion Gap 9 (5-15); BUN/Creatinine Ratio 6.2 (10.0-20.0); Bilirubin, Total 0.4 mg/dL (0.2-1.0); Calcium 9.3 mg/dL (8.7-10.4); Carbon Dioxide 27 mmol/L (20-31); Chloride 106 mmol/L (98-107); Glucose 88 mg/dL (74-106); Potassium 4.1 mmol/L (3.5-5.1); Sodium 142 mmol/L (136-145); Total Protein 8.0 g/dL (5.7-8.2)
[2024-12-25 11:41] LABS: Blood Urea Nitrogen 6 mg/dL (9-23)
== END 2024-12-26 17:00 | disposition home or self-care (01) ==
LOC: LAB 11:01
PROVIDERS: ATTEND Internal Medicine Gastroenterology
DX: R10.9 Unspecified abdominal pain (principal)
CPT/HCPCS: 36415; 80053; 85025